=== PATIENT | male | born 1935 | race African-American/Black ===

== ENCOUNTER 2017-09-11 09:48 | Inpatient (IN) ==
[2017-09-11] MEDS ORDERED: ALBUTEROL/IPRATROPIUM 3 ML NEB RESP TX STA (10:11)
[2017-09-11] MEDS ORDERED: ACETAMINOPHEN/CODEINE 120-12 MG/5 ML 12.5 ML UDCUP PO STA (10:11)
[2017-09-11] MEDS ORDERED: ACETAMINOPHEN/CODEINE 120-12 MG/5 ML 12.5 ML UDCUP ONE (10:39)
[2017-09-11 10:45] LABS: Basophils % 0.8 % (0.0-0.8); Eosinophils # 0.2 10*3/uL (0.0-0.87); Eosinophils % 4.3 % (0.00-10.9); Hematocrit 34.1 VOL% (42.0-52.0); Hemoglobin 10.9 GM/DL (14.0-18.0); Immature Granulocytes % 0.4 %; Immature Granulocytes Absolute 0.02 #; Lymphocytes # 1.1 10*3/uL (1.4-4.0); Mean Corpuscular Hemoglobin 29 PG (27-34); Mean Corpuscular Volume 91.9 FL (87-102); Mean Platelet Volume 9.6 FL (9.6-12.0); Monocytes # 0.3 10*3/uL (0.11-0.8); Monocytes % 6.5 % (1.7-12.7); Neutrophils # 3.2 10*3/uL (1.4-7.4); Platelet Count 201 T/CUMM (130-400); Red Blood Count 3.71 MC/CUMM (3.8-5.5); Red Cell Distribution Width 14.9 % (9.3-17.3); White Blood Count 4.9 T/CUMM (4-12)
[2017-09-11 10:59] LABS: PT Patient Result 10.3 SECS; Partial Thromboplastin Time 31.3 SECS (0-40)
[2017-09-11] MEDS ORDERED: cefTRIAXone 2,000 MG in SODIUM CHLORIDE 0.9% 100 ML IV ONE (10:59)
[2017-09-11 11:17] LABS: Apearance,Urine Slightly Hazy (Clear); Bacteria,Urine Few /HPF (Few); Bilirubin,Urine Negative (Negative); Blood, Urine Negative (Negative); Glucose,Urine (UA) Negative (Negative); Ketones,Urine Negative (Negative); Mucus,Urine Occasional /LPF (Occasional); Nitrite,Urine Negative (Negative); Protein,Urine Negative; RBC,Urine 5 /HPF (0-4); Squamous Epithelial Cell,Urine Occasional /HPF (0-10); Urine Color Yellow (Yellow); Urine Specific Gravity 1.015 (1.001-1.035); Urine Urobilinogen < 2.0 EU/DL (0.2-1.0); WBC,Urine 32 /HPF (0-6)
[2017-09-11 11:18] LABS: Alanine Aminotransferase 14 U/L (16-61); Albumin 3.7 G/DL (3.4-5.0); Alkaline Phosphatase 76 U/L (45-117); Aspartate Amino Transferase 20 U/L (0-37); Bilirubin,Total < 0.39 MG/DL (0.2-1.0); Blood Urea Nitrogen 18 MG/DL (7-18); Calcium 8.8 MG/DL (8.5-10.1); Glucose 81 MG/DL (74-106); Osmolality,Calculated 281.3 MOS/KG (273-304); Sodium 141 MMOL/L (136-145); Total Protein 7.2 G/DL (6.4-8.3); Troponin I Only < 0.015 NG/ML (0.00-0.045)
[2017-09-11 11:49] LABS: Barbiturates Screen,Urine Negative (Negative); Benzodiazepines Screen,Urine Negative (Negative); Cannabinoid Screen,Urine Negative (Negative); Opiate Screen,Urine Negative (Negative); Phencyclidine Screen,Urine Negative (Negative)
[2017-09-11] MEDS ORDERED: cefTRIAXone 1,000 MG VIAL ONE (11:58)
[2017-09-11] MEDS ORDERED: ENOXAPARIN 80 MG/0.8 ML SYRINGE SUBCUT STA (12:18)
[2017-09-11] MEDS ORDERED: ENOXAPARIN 80 MG/0.8 ML SYRINGE SUBCUT ONE (12:28)
[2017-09-11] MEDS ORDERED: NITROGLYCERIN SL 0.4 MG TABLET SL PRN (13:00)
[2017-09-11] MEDS ORDERED: LABETALOL 20 MG/4 ML SYRINGE IV PRN (14:28)
[2017-09-11] MEDS ORDERED: ALBUTEROL 2.5 MG/3 ML NEB RESP TX PRN (14:49)
[2017-09-11] MEDS ORDERED: cefTRIAXone 2,000 MG in SYRINGE 1 EACH IV SCH (15:00)
[2017-09-11] MEDS: ALBUTEROL/IPRATROPIUM 3 ML NEB RESP TX SCH (19:56)
[2017-09-11] MEDS: ATORVASTATIN 40 MG TABLET PO SCH (21:57)
[2017-09-11] MEDS: CARVEDILOL 12.5 MG TABLET PO SCH (21:57)
[2017-09-11] MEDS: SOTALOL 80 MG TABLET PO SCH (21:57)
[2017-09-11] MEDS: MAGNESIUM OXIDE 400 MG TABLET PO SCH (21:58)
[2017-09-11] MEDS: PANTOPRAZOLE 40 MG TABLET PO SCH (21:58)
[2017-09-11] MEDS: carBAMazepine 200 MG TABLET PO SCH (21:58)
[2017-09-11] MEDS: FLUTICASONE 50 MCG NASAL SPRAY 16 GM BOTTLE BOTH NARES SCH (21:58)
[2017-09-11] MEDS: SERTRALINE 25 MG TABLET PO SCH (21:58)
[2017-09-11] MEDS: ENOXAPARIN 80 MG/0.8 ML SYRINGE SUBCUT SCH (23:35)
[2017-09-12] MEDS: ALBUTEROL/IPRATROPIUM 3 ML NEB RESP TX SCH ×4 (00:43→20:06)
[2017-09-12 04:25] LABS: Basophils % 0.4 % (0.0-0.8); Eosinophils # 0.1 10*3/uL (0.0-0.87); Eosinophils % 1.8 % (0.00-10.9); Hematocrit 28.7 VOL% (42.0-52.0); Hemoglobin 9.6 GM/DL (14.0-18.0); Immature Granulocytes % 0.3 %; Immature Granulocytes Absolute 0.02 #; Lymphocytes # 1.3 10*3/uL (1.4-4.0); Lymphocytes % 17.3 % (21.2-54.2); Mean Corpuscular HGB Conc 33.4 GM/DL (32-36); Mean Corpuscular Hemoglobin 30 PG (27-34); Mean Corpuscular Volume 88.9 FL (87-102); Mean Platelet Volume 9.8 FL (9.6-12.0); Monocytes # 0.5 10*3/uL (0.11-0.8); Monocytes % 7.2 % (1.7-12.7); Neutrophils # 5.4 10*3/uL (1.4-7.4); Platelet Count 197 T/CUMM (130-400); Red Blood Count 3.23 MC/CUMM (3.8-5.5); Red Cell Distribution Width 14.7 % (9.3-17.3); White Blood Count 7.4 T/CUMM (4-12)
[2017-09-12 04:58] LABS: Albumin 3.4 G/DL (3.4-5.0); Bilirubin,Total 0.6 MG/DL (0.2-1.0); Calcium 8.9 MG/DL (8.5-10.1); Osmolality,Calculated 283.1 MOS/KG (273-304); Potassium 3.8 MMOL/L (3.5-5.1); Total Protein 6.5 G/DL (6.4-8.3)
[2017-09-12] MEDS: SOTALOL 80 MG TABLET PO SCH ×2 (09:05→21:32)
[2017-09-12] MEDS: CARVEDILOL 12.5 MG TABLET PO SCH ×2 (09:06→21:32)
[2017-09-12] MEDS: FLUTICASONE 50 MCG NASAL SPRAY 16 GM BOTTLE BOTH NARES SCH ×2 (09:06→21:33)
[2017-09-12] MEDS: ALLOPURINOL 100 MG TABLET PO SCH (09:06)
[2017-09-12] MEDS: MAGNESIUM OXIDE 400 MG TABLET PO SCH ×2 (09:06→21:32)
[2017-09-12] MEDS: TAMSULOSIN 0.4 MG CAPSULE PO SCH (09:06)
[2017-09-12] MEDS: LEVOFLOXACIN INJ 750 MG in PREMIX 1 EACH IV SCH (10:49)
[2017-09-12] MEDS: ENOXAPARIN 80 MG/0.8 ML SYRINGE SUBCUT SCH ×2 (11:10→23:30)
[2017-09-12] MEDS ORDERED: ACETAMINOPHEN 325 MG TABLET PO PRN (17:34)
[2017-09-12] MEDS: ATORVASTATIN 40 MG TABLET PO SCH (21:32)
[2017-09-12] MEDS: carBAMazepine 200 MG TABLET PO SCH (21:32)
[2017-09-12] MEDS: PANTOPRAZOLE 40 MG TABLET PO SCH (21:33)
[2017-09-12] MEDS: SERTRALINE 25 MG TABLET PO SCH (21:33)
[2017-09-13] MEDS: ALBUTEROL/IPRATROPIUM 3 ML NEB RESP TX SCH ×4 (01:07→18:30)
[2017-09-13 05:23] LABS: Basophils % 0.3 % (0.0-0.8); Eosinophils # 0.2 10*3/uL (0.0-0.87); Eosinophils % 2.8 % (0.00-10.9); Hematocrit 27.5 VOL% (42.0-52.0); Hemoglobin 9.2 GM/DL (14.0-18.0); Immature Granulocytes % 0.2 %; Immature Granulocytes Absolute 0.01 #; Lymphocytes # 1.4 10*3/uL (1.4-4.0); Lymphocytes % 21.8 % (21.2-54.2); Mean Corpuscular HGB Conc 33.5 GM/DL (32-36); Mean Corpuscular Hemoglobin 30 PG (27-34); Mean Corpuscular Volume 89.6 FL (87-102); Mean Platelet Volume 9.2 FL (9.6-12.0); Monocytes # 0.7 10*3/uL (0.11-0.8); Monocytes % 10.4 % (1.7-12.7); Neutrophils # 4.2 10*3/uL (1.4-7.4); Neutrophils % 64.5 % (38.7-73.9); Platelet Count 189 T/CUMM (130-400); Red Blood Count 3.07 MC/CUMM (3.8-5.5); Red Cell Distribution Width 14.8 % (9.3-17.3); White Blood Count 6.5 T/CUMM (4-12)
[2017-09-13 06:08] LABS: Osmolality,Calculated 278.4 MOS/KG (273-304); Potassium 3.7 MMOL/L (3.5-5.1)
[2017-09-13] MEDS: ALLOPURINOL 100 MG TABLET PO SCH (09:06)
[2017-09-13] MEDS: SOTALOL 80 MG TABLET PO SCH ×2 (09:06→22:08)
[2017-09-13] MEDS: MAGNESIUM OXIDE 400 MG TABLET PO SCH ×2 (09:06→22:09)
[2017-09-13] MEDS: CARVEDILOL 12.5 MG TABLET PO SCH ×2 (09:06→22:09)
[2017-09-13] MEDS: TAMSULOSIN 0.4 MG CAPSULE PO SCH (09:07)
[2017-09-13] MEDS: FLUTICASONE 50 MCG NASAL SPRAY 16 GM BOTTLE BOTH NARES SCH ×2 (09:08→22:10)
[2017-09-13] MEDS: LEVOFLOXACIN INJ 750 MG in PREMIX 1 EACH IV SCH (10:21)
[2017-09-13] MEDS: ENOXAPARIN 80 MG/0.8 ML SYRINGE SUBCUT SCH (13:50)
[2017-09-13] MEDS: APIXABAN 5 MG TABLET PO SCH ×2 (13:51→22:09)
[2017-09-13] MEDS ORDERED: POTASSIUM CHLORIDE 20 MEQ TABLET PO PRN (20:58)
[2017-09-13] MEDS ORDERED: MAGNESIUM SULF RIDER 2 GM in PREMIX 1 EACH IV PRN ×2 (21:00→21:02)
[2017-09-13] MEDS ORDERED: MAGNESIUM SULF RIDER 4 GM in PREMIX 1 EACH IV PRN ×2 (21:00→21:02)
[2017-09-13] MEDS: carBAMazepine 200 MG TABLET PO SCH (22:08)
[2017-09-13] MEDS: PANTOPRAZOLE 40 MG TABLET PO SCH (22:09)
[2017-09-13] MEDS: SERTRALINE 25 MG TABLET PO SCH (22:09)
[2017-09-13] MEDS: ATORVASTATIN 40 MG TABLET PO SCH (22:09)
[2017-09-14 05:28] LABS: Basophils % 0.5 % (0.0-0.8); Eosinophils # 0.2 10*3/uL (0.0-0.87); Eosinophils % 3.7 % (0.00-10.9); Hematocrit 25.6 VOL% (42.0-52.0); Hemoglobin 8.6 GM/DL (14.0-18.0); Immature Granulocytes % 0.3 %; Immature Granulocytes Absolute 0.02 #; Lymphocytes # 1.3 10*3/uL (1.4-4.0); Lymphocytes % 21.9 % (21.2-54.2); Mean Corpuscular HGB Conc 33.6 GM/DL (32-36); Mean Corpuscular Hemoglobin 30 PG (27-34); Mean Corpuscular Volume 89.5 FL (87-102); Mean Platelet Volume 9.5 FL (9.6-12.0); Monocytes # 0.6 10*3/uL (0.11-0.8); Neutrophils # 3.6 10*3/uL (1.4-7.4); Neutrophils % 63.6 % (38.7-73.9); Platelet Count 185 T/CUMM (130-400); Red Blood Count 2.86 MC/CUMM (3.8-5.5); Red Cell Distribution Width 14.7 % (9.3-17.3); White Blood Count 5.7 T/CUMM (4-12)
[2017-09-14 05:59] LABS: Calcium 8.4 MG/DL (8.5-10.1); Osmolality,Calculated 280.3 MOS/KG (273-304); Potassium 3.7 MMOL/L (3.5-5.1)
[2017-09-14] MEDS: ALBUTEROL/IPRATROPIUM 3 ML NEB RESP TX SCH ×4 (06:55→19:09)
[2017-09-14] MEDS: SOTALOL 80 MG TABLET PO SCH ×2 (09:19→21:44)
[2017-09-14] MEDS: CARVEDILOL 12.5 MG TABLET PO SCH ×2 (09:19→21:45)
[2017-09-14] MEDS: MAGNESIUM OXIDE 400 MG TABLET PO SCH ×2 (09:19→21:45)
[2017-09-14] MEDS: APIXABAN 5 MG TABLET PO SCH ×2 (09:19→21:44)
[2017-09-14] MEDS: TAMSULOSIN 0.4 MG CAPSULE PO SCH (09:20)
[2017-09-14] MEDS: ALLOPURINOL 100 MG TABLET PO SCH (09:20)
[2017-09-14] MEDS: FLUTICASONE 50 MCG NASAL SPRAY 16 GM BOTTLE BOTH NARES SCH ×2 (09:22→21:45)
[2017-09-14] MEDS: NITROFURANTOIN MACRO/MONO 100 MG CAPSULE PO SCH ×2 (09:30→21:45)
[2017-09-14] MEDS: HYDROcodone/CHLORPHENIRAMINE ER 5 ML UDCUP PO SCH ×2 (09:31→21:44)
[2017-09-14] MEDS: SERTRALINE 25 MG TABLET PO SCH (21:44)
[2017-09-14] MEDS: carBAMazepine 200 MG TABLET PO SCH (21:44)
[2017-09-14] MEDS: ATORVASTATIN 40 MG TABLET PO SCH (21:45)
[2017-09-14] MEDS: PANTOPRAZOLE 40 MG TABLET PO SCH (21:45)
[2017-09-15] MEDS: ALBUTEROL/IPRATROPIUM 3 ML NEB RESP TX SCH ×4 (01:16→19:38)
[2017-09-15 05:04] LABS: Basophils % 0.5 % (0.0-0.8); Eosinophils # 0.3 10*3/uL (0.0-0.87); Eosinophils % 5.3 % (0.00-10.9); Hematocrit 25.7 VOL% (42.0-52.0); Hemoglobin 8.1 GM/DL (14.0-18.0); Immature Granulocytes % 0.2 %; Immature Granulocytes Absolute 0.01 #; Lymphocytes # 1.3 10*3/uL (1.4-4.0); Lymphocytes % 21.9 % (21.2-54.2); Mean Corpuscular HGB Conc 31.5 GM/DL (32-36); Mean Corpuscular Hemoglobin 30 PG (27-34); Mean Corpuscular Volume 93.5 FL (87-102); Mean Platelet Volume 9.6 FL (9.6-12.0); Monocytes # 0.7 10*3/uL (0.11-0.8); Monocytes % 11.2 % (1.7-12.7); Neutrophils # 3.5 10*3/uL (1.4-7.4); Neutrophils % 60.9 % (38.7-73.9); Platelet Count 189 T/CUMM (130-400); Red Blood Count 2.75 MC/CUMM (3.8-5.5); Red Cell Distribution Width 14.8 % (9.3-17.3); White Blood Count 5.8 T/CUMM (4-12)
[2017-09-15] MEDS ORDERED: PROMETHAZINE 25 MG/1 ML VIAL IM ONE (07:00)
[2017-09-15] MEDS ORDERED: MIDAZOLAM 2 MG/2 ML VIAL ONE (07:06)
[2017-09-15] MEDS ORDERED: LIDOCAINE 2% 20 ML VIAL RESP TX ONE (07:30)
[2017-09-15] MEDS ORDERED: MIDAZOLAM 2 MG/2 ML VIAL IV ONE ×2 (07:30→09:52)
[2017-09-15] MEDS ORDERED: LIDOCAINE 1% 20 ML VIAL MISC INJ ONE (07:30)
[2017-09-15] MEDS ORDERED: EPINEPHrine 1 MG/ML VIAL ET ONE (08:25)
[2017-09-15] MEDS ORDERED: EPINEPHrine 1 MG/ML VIAL ONE (09:34)
[2017-09-15] MEDS ORDERED: fentaNYL 100 MCG/2 ML VIAL IV ONE (09:52)
[2017-09-15] MEDS ORDERED: DIAZEPAM 5 MG TABLET PO ONE (09:52)
[2017-09-15] MEDS: HYDROcodone/CHLORPHENIRAMINE ER 5 ML UDCUP PO SCH ×2 (14:50→21:21)
[2017-09-15] MEDS: SOTALOL 80 MG TABLET PO SCH ×2 (14:51→21:19)
[2017-09-15] MEDS: TAMSULOSIN 0.4 MG CAPSULE PO SCH (14:52)
[2017-09-15] MEDS: MAGNESIUM OXIDE 400 MG TABLET PO SCH ×2 (14:52→21:21)
[2017-09-15] MEDS: ALLOPURINOL 100 MG TABLET PO SCH (14:53)
[2017-09-15] MEDS: CARVEDILOL 12.5 MG TABLET PO SCH ×2 (14:53→21:21)
[2017-09-15] MEDS: NITROFURANTOIN MACRO/MONO 100 MG CAPSULE PO SCH ×2 (14:53→21:20)
[2017-09-15] MEDS: FLUTICASONE 50 MCG NASAL SPRAY 16 GM BOTTLE BOTH NARES SCH ×2 (14:54→21:24)
[2017-09-15] MEDS: carBAMazepine 200 MG TABLET PO SCH (21:19)
[2017-09-15] MEDS: SERTRALINE 25 MG TABLET PO SCH (21:20)
[2017-09-15] MEDS: ATORVASTATIN 40 MG TABLET PO SCH (21:21)
[2017-09-15] MEDS: PANTOPRAZOLE 40 MG TABLET PO SCH (21:21)
[2017-09-16] MEDS: ALBUTEROL/IPRATROPIUM 3 ML NEB RESP TX SCH ×4 (01:55→20:21)
[2017-09-16 05:14] LABS: Basophils % 0.3 % (0.0-0.8); Eosinophils # 0.2 10*3/uL (0.0-0.87); Eosinophils % 3.8 % (0.00-10.9); Hemoglobin 8.4 GM/DL (14.0-18.0); Immature Granulocytes % 0.3 %; Immature Granulocytes Absolute 0.02 #; Lymphocytes % 16.1 % (21.2-54.2); Mean Corpuscular HGB Conc 33.6 GM/DL (32-36); Mean Corpuscular Hemoglobin 30 PG (27-34); Mean Platelet Volume 9.5 FL (9.6-12.0); Monocytes # 0.5 10*3/uL (0.11-0.8); Monocytes % 8.4 % (1.7-12.7); Neutrophils # 4.5 10*3/uL (1.4-7.4); Neutrophils % 71.1 % (38.7-73.9); Platelet Count 217 T/CUMM (130-400); Red Blood Count 2.81 MC/CUMM (3.8-5.5); Red Cell Distribution Width 14.6 % (9.3-17.3); White Blood Count 6.3 T/CUMM (4-12)
[2017-09-16 05:56] LABS: Calcium 8.2 MG/DL (8.5-10.1); Osmolality,Calculated 284.1 MOS/KG (273-304); Potassium 4.1 MMOL/L (3.5-5.1)
[2017-09-16] MEDS: ALLOPURINOL 100 MG TABLET PO SCH (08:08)
[2017-09-16] MEDS: CARVEDILOL 12.5 MG TABLET PO SCH ×2 (08:08→21:18)
[2017-09-16] MEDS: MAGNESIUM OXIDE 400 MG TABLET PO SCH ×2 (08:08→21:15)
[2017-09-16] MEDS: NITROFURANTOIN MACRO/MONO 100 MG CAPSULE PO SCH ×2 (08:08→21:24)
[2017-09-16] MEDS: TAMSULOSIN 0.4 MG CAPSULE PO SCH (08:08)
[2017-09-16] MEDS: FLUTICASONE 50 MCG NASAL SPRAY 16 GM BOTTLE BOTH NARES SCH ×2 (08:09→21:19)
[2017-09-16] MEDS: SOTALOL 80 MG TABLET PO SCH ×2 (08:09→21:15)
[2017-09-16] MEDS: HYDROcodone/CHLORPHENIRAMINE ER 5 ML UDCUP PO SCH ×2 (08:09→21:24)
[2017-09-16] MEDS: ATORVASTATIN 40 MG TABLET PO SCH (21:15)
[2017-09-16] MEDS: carBAMazepine 200 MG TABLET PO SCH (21:16)
[2017-09-16] MEDS: PANTOPRAZOLE 40 MG TABLET PO SCH (21:17)
[2017-09-16] MEDS: SERTRALINE 25 MG TABLET PO SCH (21:17)
[2017-09-17] MEDS: ALBUTEROL/IPRATROPIUM 3 ML NEB RESP TX SCH ×4 (00:53→18:59)
[2017-09-17 04:50] LABS: Basophils % 0.5 % (0.0-0.8); Eosinophils # 0.3 10*3/uL (0.0-0.87); Eosinophils % 5.4 % (0.00-10.9); Hematocrit 24.9 VOL% (42.0-52.0); Hemoglobin 8.1 GM/DL (14.0-18.0); Immature Granulocytes % 0.3 %; Immature Granulocytes Absolute 0.02 #; Lymphocytes % 17.3 % (21.2-54.2); Mean Corpuscular HGB Conc 32.5 GM/DL (32-36); Mean Corpuscular Hemoglobin 30 PG (27-34); Mean Corpuscular Volume 91.9 FL (87-102); Mean Platelet Volume 9.4 FL (9.6-12.0); Monocytes # 0.5 10*3/uL (0.11-0.8); Monocytes % 7.6 % (1.7-12.7); Neutrophils # 4.1 10*3/uL (1.4-7.4); Neutrophils % 68.9 % (38.7-73.9); Platelet Count 215 T/CUMM (130-400); Red Blood Count 2.71 MC/CUMM (3.8-5.5); Red Cell Distribution Width 14.6 % (9.3-17.3); White Blood Count 5.9 T/CUMM (4-12)
[2017-09-17 05:19] LABS: Calcium 8.3 MG/DL (8.5-10.1); Osmolality,Calculated 282.3 MOS/KG (273-304); Potassium 3.9 MMOL/L (3.5-5.1)
[2017-09-17] MEDS: CARVEDILOL 12.5 MG TABLET PO SCH ×2 (08:24→21:18)
[2017-09-17] MEDS: NITROFURANTOIN MACRO/MONO 100 MG CAPSULE PO SCH ×2 (08:24→21:18)
[2017-09-17] MEDS: TAMSULOSIN 0.4 MG CAPSULE PO SCH (08:24)
[2017-09-17] MEDS: MAGNESIUM OXIDE 400 MG TABLET PO SCH ×2 (08:24→21:19)
[2017-09-17] MEDS: FLUTICASONE 50 MCG NASAL SPRAY 16 GM BOTTLE BOTH NARES SCH ×2 (08:25→21:17)
[2017-09-17] MEDS: SOTALOL 80 MG TABLET PO SCH ×2 (08:25→21:17)
[2017-09-17] MEDS: ALLOPURINOL 100 MG TABLET PO SCH (08:25)
[2017-09-17] MEDS: HYDROcodone/CHLORPHENIRAMINE ER 5 ML UDCUP PO SCH ×2 (08:25→21:19)
[2017-09-17] MEDS: carBAMazepine 200 MG TABLET PO SCH (21:17)
[2017-09-17] MEDS: SERTRALINE 25 MG TABLET PO SCH (21:18)
[2017-09-17] MEDS: ATORVASTATIN 40 MG TABLET PO SCH (21:18)
[2017-09-17] MEDS: PANTOPRAZOLE 40 MG TABLET PO SCH (21:18)
[2017-09-18] MEDS: ALBUTEROL/IPRATROPIUM 3 ML NEB RESP TX SCH ×4 (00:05→20:33)
[2017-09-18 05:58] LABS: Basophils % 0.5 % (0.0-0.8); Eosinophils # 0.3 10*3/uL (0.0-0.87); Eosinophils % 4.5 % (0.00-10.9); Hematocrit 25.5 VOL% (42.0-52.0); Hemoglobin 8.2 GM/DL (14.0-18.0); Immature Granulocytes % 0.5 %; Immature Granulocytes Absolute 0.03 #; Lymphocytes % 14.4 % (21.2-54.2); Mean Corpuscular HGB Conc 32.2 GM/DL (32-36); Mean Corpuscular Hemoglobin 30 PG (27-34); Mean Corpuscular Volume 91.7 FL (87-102); Mean Platelet Volume 9.3 FL (9.6-12.0); Monocytes # 0.4 10*3/uL (0.11-0.8); Monocytes % 6.3 % (1.7-12.7); Neutrophils # 4.9 10*3/uL (1.4-7.4); Neutrophils % 73.8 % (38.7-73.9); Platelet Count 225 T/CUMM (130-400); Red Blood Count 2.78 MC/CUMM (3.8-5.5); Red Cell Distribution Width 14.4 % (9.3-17.3); White Blood Count 6.7 T/CUMM (4-12)
[2017-09-18 06:23] LABS: Calcium 8.6 MG/DL (8.5-10.1); Osmolality,Calculated 282.3 MOS/KG (273-304); Potassium 3.9 MMOL/L (3.5-5.1)
[2017-09-18] MEDS: MAGNESIUM OXIDE 400 MG TABLET PO SCH ×2 (08:18→22:33)
[2017-09-18] MEDS: TAMSULOSIN 0.4 MG CAPSULE PO SCH (08:18)
[2017-09-18] MEDS: HYDROcodone/CHLORPHENIRAMINE ER 5 ML UDCUP PO SCH ×2 (08:18→23:54)
[2017-09-18] MEDS: SOTALOL 80 MG TABLET PO SCH ×2 (08:18→22:33)
[2017-09-18] MEDS: ALLOPURINOL 100 MG TABLET PO SCH (08:18)
[2017-09-18] MEDS: CARVEDILOL 12.5 MG TABLET PO SCH ×2 (08:18→22:31)
[2017-09-18] MEDS: NITROFURANTOIN MACRO/MONO 100 MG CAPSULE PO SCH ×2 (08:18→22:32)
[2017-09-18] MEDS: FLUTICASONE 50 MCG NASAL SPRAY 16 GM BOTTLE BOTH NARES SCH ×2 (08:19→22:36)
[2017-09-18] MEDS: POLYETHYLENE GLYCOL POWDER 17 GM PACK PO PRN (17:00)
[2017-09-18] MEDS: carBAMazepine 200 MG TABLET PO SCH (22:31)
[2017-09-18] MEDS: ATORVASTATIN 40 MG TABLET PO SCH (22:31)
[2017-09-18] MEDS: SERTRALINE 25 MG TABLET PO SCH (22:32)
[2017-09-18] MEDS: PANTOPRAZOLE 40 MG TABLET PO SCH (22:32)
[2017-09-19] MEDS: ALBUTEROL/IPRATROPIUM 3 ML NEB RESP TX SCH ×4 (02:45→19:12)
[2017-09-19 05:23] LABS: Basophils # 0.1 10*3/uL (0.0-0.2); Basophils % 0.8 % (0.0-0.8); Eosinophils # 0.2 10*3/uL (0.0-0.87); Eosinophils % 3.6 % (0.00-10.9); Hematocrit 25.3 VOL% (42.0-52.0); Hemoglobin 8.4 GM/DL (14.0-18.0); Immature Granulocytes % 0.3 %; Immature Granulocytes Absolute 0.02 #; Lymphocytes # 0.8 10*3/uL (1.4-4.0); Lymphocytes % 11.3 % (21.2-54.2); Mean Corpuscular HGB Conc 33.2 GM/DL (32-36); Mean Corpuscular Hemoglobin 30 PG (27-34); Mean Corpuscular Volume 89.1 FL (87-102); Monocytes # 0.4 10*3/uL (0.11-0.8); Neutrophils # 5.2 10*3/uL (1.4-7.4); Platelet Count 262 T/CUMM (130-400); Red Blood Count 2.84 MC/CUMM (3.8-5.5); Red Cell Distribution Width 14.5 % (9.3-17.3); White Blood Count 6.6 T/CUMM (4-12)
[2017-09-19 05:58] LABS: Calcium 8.7 MG/DL (8.5-10.1); Osmolality,Calculated 280.4 MOS/KG (273-304); Potassium 4.2 MMOL/L (3.5-5.1)
[2017-09-19] MEDS: TAMSULOSIN 0.4 MG CAPSULE PO SCH (16:17)
[2017-09-19] MEDS: CARVEDILOL 12.5 MG TABLET PO SCH ×2 (16:17→20:30)
[2017-09-19] MEDS: SOTALOL 80 MG TABLET PO SCH ×2 (16:17→20:29)
[2017-09-19] MEDS: HYDROcodone/CHLORPHENIRAMINE ER 5 ML UDCUP PO SCH ×2 (16:17→20:30)
[2017-09-19] MEDS: FLUTICASONE 50 MCG NASAL SPRAY 16 GM BOTTLE BOTH NARES SCH ×2 (16:17→20:36)
[2017-09-19] MEDS: ALLOPURINOL 100 MG TABLET PO SCH (16:18)
[2017-09-19] MEDS: MAGNESIUM OXIDE 400 MG TABLET PO SCH ×2 (16:18→20:30)
[2017-09-19] MEDS: NITROFURANTOIN MACRO/MONO 100 MG CAPSULE PO SCH ×2 (16:18→20:35)
[2017-09-19] MEDS: SERTRALINE 25 MG TABLET PO SCH (20:30)
[2017-09-19] MEDS: carBAMazepine 200 MG TABLET PO SCH (20:30)
[2017-09-19] MEDS: PANTOPRAZOLE 40 MG TABLET PO SCH (20:30)
[2017-09-19] MEDS: ATORVASTATIN 40 MG TABLET PO SCH (20:30)
[2017-09-20] MEDS: ALBUTEROL/IPRATROPIUM 3 ML NEB RESP TX SCH ×4 (00:22→19:15)
[2017-09-20 05:23] LABS: Basophils % 0.5 % (0.0-0.8); Eosinophils # 0.2 10*3/uL (0.0-0.87); Eosinophils % 3.7 % (0.00-10.9); Hematocrit 26.7 VOL% (42.0-52.0); Hemoglobin 8.8 GM/DL (14.0-18.0); Immature Granulocytes % 0.3 %; Immature Granulocytes Absolute 0.02 #; Lymphocytes # 0.9 10*3/uL (1.4-4.0); Lymphocytes % 13.1 % (21.2-54.2); Mean Corpuscular Hemoglobin 29 PG (27-34); Mean Corpuscular Volume 88.7 FL (87-102); Mean Platelet Volume 8.8 FL (9.6-12.0); Monocytes # 0.5 10*3/uL (0.11-0.8); Monocytes % 8.3 % (1.7-12.7); Neutrophils # 4.8 10*3/uL (1.4-7.4); Neutrophils % 74.1 % (38.7-73.9); Platelet Count 294 T/CUMM (130-400); Red Blood Count 3.01 MC/CUMM (3.8-5.5); Red Cell Distribution Width 14.5 % (9.3-17.3); White Blood Count 6.5 T/CUMM (4-12)
[2017-09-20 05:55] LABS: Albumin 2.7 G/DL (3.4-5.0); Bilirubin,Total 0.5 MG/DL (0.2-1.0); Calcium 8.3 MG/DL (8.5-10.1); Potassium 3.9 MMOL/L (3.5-5.1); Total Protein 6.1 G/DL (6.4-8.3)
[2017-09-20 08:03] LABS: PT Patient Result 10.3 SECS; Partial Thromboplastin Time 35.2 SECS (0-40)
[2017-09-20] MEDS: TAMSULOSIN 0.4 MG CAPSULE PO SCH (09:23)
[2017-09-20] MEDS: SOTALOL 80 MG TABLET PO SCH ×2 (09:23→21:54)
[2017-09-20] MEDS: CARVEDILOL 12.5 MG TABLET PO SCH ×2 (09:23→21:53)
[2017-09-20] MEDS: ALLOPURINOL 100 MG TABLET PO SCH (09:23)
[2017-09-20] MEDS: HYDROcodone/CHLORPHENIRAMINE ER 5 ML UDCUP PO SCH ×2 (09:24→21:57)
[2017-09-20] MEDS: FLUTICASONE 50 MCG NASAL SPRAY 16 GM BOTTLE BOTH NARES SCH ×2 (09:24→21:58)
[2017-09-20] MEDS: APIXABAN 5 MG TABLET PO SCH ×2 (09:24→21:56)
[2017-09-20] MEDS: POLYETHYLENE GLYCOL POWDER 17 GM PACK PO PRN (09:24)
[2017-09-20] MEDS: MAGNESIUM OXIDE 400 MG TABLET PO SCH ×2 (09:24→21:53)
[2017-09-20] MEDS: carBAMazepine 200 MG TABLET PO SCH (21:53)
[2017-09-20] MEDS: ATORVASTATIN 40 MG TABLET PO SCH (21:55)
[2017-09-20] MEDS: SERTRALINE 25 MG TABLET PO SCH (21:55)
[2017-09-20] MEDS: PANTOPRAZOLE 40 MG TABLET PO SCH (21:56)
[2017-09-21] MEDS: ALBUTEROL/IPRATROPIUM 3 ML NEB RESP TX SCH ×4 (00:28→19:30)
[2017-09-21 05:51] LABS: Basophils % 0.5 % (0.0-0.8); Eosinophils # 0.3 10*3/uL (0.0-0.87); Eosinophils % 5.2 % (0.00-10.9); Hematocrit 26.2 VOL% (42.0-52.0); Hemoglobin 8.7 GM/DL (14.0-18.0); Immature Granulocytes % 0.3 %; Immature Granulocytes Absolute 0.02 #; Lymphocytes # 0.9 10*3/uL (1.4-4.0); Lymphocytes % 14.9 % (21.2-54.2); Mean Corpuscular HGB Conc 33.2 GM/DL (32-36); Mean Corpuscular Hemoglobin 30 PG (27-34); Mean Corpuscular Volume 88.8 FL (87-102); Monocytes # 0.4 10*3/uL (0.11-0.8); Monocytes % 7.4 % (1.7-12.7); Neutrophils # 4.3 10*3/uL (1.4-7.4); Neutrophils % 71.7 % (38.7-73.9); Platelet Count 325 T/CUMM (130-400); Red Blood Count 2.95 MC/CUMM (3.8-5.5); Red Cell Distribution Width 14.4 % (9.3-17.3)
[2017-09-21 06:23] LABS: Albumin 2.8 G/DL (3.4-5.0); Bilirubin,Total 0.7 MG/DL (0.2-1.0); Calcium 8.8 MG/DL (8.5-10.1); Osmolality,Calculated 284.3 MOS/KG (273-304); Potassium 4.2 MMOL/L (3.5-5.1); Total Protein 6.3 G/DL (6.4-8.3)
[2017-09-21] MEDS: SOTALOL 80 MG TABLET PO SCH ×2 (09:28→21:54)
[2017-09-21] MEDS: CARVEDILOL 12.5 MG TABLET PO SCH ×2 (09:29→21:54)
[2017-09-21] MEDS: MAGNESIUM OXIDE 400 MG TABLET PO SCH ×2 (09:29→21:55)
[2017-09-21] MEDS: APIXABAN 2.5 MG TABLET PO SCH ×2 (09:29→21:54)
[2017-09-21] MEDS: ALLOPURINOL 100 MG TABLET PO SCH (09:29)
[2017-09-21] MEDS: TAMSULOSIN 0.4 MG CAPSULE PO SCH (09:30)
[2017-09-21] MEDS: FLUTICASONE 50 MCG NASAL SPRAY 16 GM BOTTLE BOTH NARES SCH ×2 (09:30→21:56)
[2017-09-21] MEDS: HYDROcodone/CHLORPHENIRAMINE ER 5 ML UDCUP PO SCH (09:30)
[2017-09-21] MEDS: carBAMazepine 200 MG TABLET PO SCH (21:54)
[2017-09-21] MEDS: PANTOPRAZOLE 40 MG TABLET PO SCH (21:54)
[2017-09-21] MEDS: SERTRALINE 25 MG TABLET PO SCH (21:55)
[2017-09-21] MEDS: ATORVASTATIN 40 MG TABLET PO SCH (21:55)
[2017-09-22] MEDS: ALBUTEROL/IPRATROPIUM 3 ML NEB RESP TX SCH ×2 (00:17→07:58)
[2017-09-22] MEDS: CARVEDILOL 12.5 MG TABLET PO SCH (08:54)
[2017-09-22] MEDS: APIXABAN 2.5 MG TABLET PO SCH (08:54)
[2017-09-22] MEDS: MAGNESIUM OXIDE 400 MG TABLET PO SCH (08:54)
[2017-09-22] MEDS: SOTALOL 80 MG TABLET PO SCH (08:54)
[2017-09-22] MEDS: TAMSULOSIN 0.4 MG CAPSULE PO SCH (08:54)
[2017-09-22] MEDS: ALLOPURINOL 100 MG TABLET PO SCH (08:54)
[2017-09-22] MEDS: FLUTICASONE 50 MCG NASAL SPRAY 16 GM BOTTLE BOTH NARES SCH (09:06)
[2017-09-22 12:10] VITALS: BP 102/56
== END 2017-09-22 15:38 | disposition home health service (06) | DRG 167 ==
LOC: N.ED 09:48 → N.EDINP 12:52 → SUATTDRO 12:52 → N.TELES 13:26
PROVIDERS: ADMIT Hospitalist; ATTEND Internal Medicine Geriatric Medicine

== ENCOUNTER 2017-09-30 23:13 | Observation (INO) ==
[2017-09-30] MEDS ORDERED: ADENOSINE 6 MG/2 ML VIAL ONE ×2 (23:53)
[2017-10-01] MEDS ORDERED: AMIODARONE 200 MG TABLET PO ONE ×2 (00:12→12:11)
[2017-10-01 01:06] LABS: Basophils # 0.1 10*3/uL (0.0-0.2); Basophils % 1.2 % (0.0-0.8); Eosinophils # 0.4 10*3/uL (0.0-0.87); Eosinophils % 6.7 % (0.00-10.9); Hematocrit 27.5 VOL% (42.0-52.0); Immature Granulocytes % 0.7 %; Immature Granulocytes Absolute 0.04 #; Lymphocytes # 1.9 10*3/uL (1.4-4.0); Lymphocytes % 31.1 % (21.2-54.2); Mean Corpuscular HGB Conc 32.7 GM/DL (32-36); Mean Corpuscular Hemoglobin 29 PG (27-34); Mean Corpuscular Volume 89.3 FL (87-102); Mean Platelet Volume 8.9 FL (9.6-12.0); Monocytes # 0.5 10*3/uL (0.11-0.8); Monocytes % 7.9 % (1.7-12.7); Neutrophils # 3.2 10*3/uL (1.4-7.4); Neutrophils % 52.4 % (38.7-73.9); Platelet Count 407 T/CUMM (130-400); Red Blood Count 3.08 MC/CUMM (3.8-5.5); Red Cell Distribution Width 15.1 % (9.3-17.3); White Blood Count 6.1 T/CUMM (4-12)
[2017-10-01 01:26] LABS: Alanine Aminotransferase 31 U/L (16-61); Alkaline Phosphatase 102 U/L (45-117); Aspartate Amino Transferase 29 U/L (0-37); Bilirubin,Total < 0.39 MG/DL (0.2-1.0); Blood Urea Nitrogen 22 MG/DL (7-18); Calcium 8.4 MG/DL (8.5-10.1); Glucose 107 MG/DL (74-106); Osmolality,Calculated 285.1 MOS/KG (273-304); Potassium 3.9 MMOL/L (3.5-5.1); Sodium 142 MMOL/L (136-145); Troponin I Only < 0.015 NG/ML (0.00-0.045)
[2017-10-01] MEDS ORDERED: MAGNESIUM SULF RIDER 4 GM in PREMIX 1 EACH IV PRN (02:30)
[2017-10-01] MEDS ORDERED: ONDANSETRON 4 MG/2 ML VIAL IV PRN (02:30)
[2017-10-01] MEDS ORDERED: MAGNESIUM SULF RIDER 2 GM in PREMIX 1 EACH IV PRN (02:30)
[2017-10-01 06:36] LABS: Troponin I Only < 0.015 NG/ML (0.00-0.045)
[2017-10-01 06:37] LABS: Troponin I Only < 0.015 NG/ML (0.00-0.045)
[2017-10-01] MEDS: AMIODARONE 200 MG TABLET PO SCH ×2 (08:45→20:45)
[2017-10-01] MEDS ORDERED: PANTOPRAZOLE 40 MG TABLET PO SCH ×2 (09:00→21:00)
[2017-10-01 09:54] LABS: Troponin I Only < 0.015 NG/ML (0.00-0.045)
[2017-10-01] MEDS ORDERED: NITROGLYCERIN SL 0.4 MG TABLET SL PRN (10:07)
[2017-10-01] MEDS: APIXABAN 5 MG TABLET PO SCH ×2 (12:43→20:45)
[2017-10-01] MEDS: CARVEDILOL 12.5 MG TABLET PO SCH ×2 (12:44→18:32)
[2017-10-01] MEDS: MAGNESIUM OXIDE 400 MG TABLET PO SCH (20:45)
[2017-10-01] MEDS: FLUTICASONE 50 MCG NASAL SPRAY 16 GM BOTTLE BOTH NARES SCH (20:49)
[2017-10-01] MEDS ORDERED: ATORVASTATIN 40 MG TABLET PO SCH (21:00)
[2017-10-01] MEDS ORDERED: SERTRALINE 25 MG TABLET PO SCH (21:00)
[2017-10-01] MEDS ORDERED: APIXABAN 2.5 MG TABLET PO SCH (21:00)
[2017-10-01] MEDS ORDERED: carBAMazepine 200 MG TABLET PO SCH (21:00)
[2017-10-02] MEDS: CARVEDILOL 12.5 MG TABLET PO SCH ×3 (00:34→14:21)
[2017-10-02] MEDS ORDERED: TAMSULOSIN 0.4 MG CAPSULE PO SCH (09:00)
[2017-10-02] MEDS ORDERED: ALLOPURINOL 100 MG TABLET PO SCH (09:00)
[2017-10-02] MEDS ORDERED: CETIRIZINE 10 MG TABLET PO SCH (09:00)
[2017-10-02] MEDS ORDERED: FUROSEMIDE 20 MG TABLET PO SCH (09:00)
[2017-10-02] MEDS: AMIODARONE 200 MG TABLET PO SCH (09:14)
[2017-10-02] MEDS: MAGNESIUM OXIDE 400 MG TABLET PO SCH (09:14)
[2017-10-02] MEDS: FLUTICASONE 50 MCG NASAL SPRAY 16 GM BOTTLE BOTH NARES SCH (09:15)
[2017-10-02] MEDS: APIXABAN 5 MG TABLET PO SCH (09:15)
[2017-10-02 12:35] VITALS: BP 136/69
== END 2017-10-02 15:02 | disposition home or self-care (01) ==
LOC: N.EDINP 23:13 → N.ED 23:13 → N.TELES 10-01 02:14
PROVIDERS: ADMIT Internal Medicine Cardiovascular Disease; ATTEND Internal Medicine Cardiovascular Disease

== ENCOUNTER 2018-03-28 22:32 | Inpatient (IN) ==
[2018-03-28] MEDS ORDERED: SODIUM CHLORIDE 0.9% 500 ML IV STA (23:14)
[2018-03-28] MEDS ORDERED: ALBUTEROL/IPRATROPIUM 3 ML NEB RESP TX STA (23:14)
[2018-03-29 00:05] LABS: Basophils % 0.2 % (0.0-0.8); Eosinophils # 0.1 10*3/uL (0.0-0.87); Eosinophils % 1.5 % (0.00-10.9); Hematocrit 30.1 VOL% (42.0-52.0); Immature Granulocytes % 0.2 %; Immature Granulocytes Absolute 0.01 #; Lymphocytes # 0.4 10*3/uL (1.4-4.0); Lymphocytes % 7.4 % (21.2-54.2); Mean Corpuscular HGB Conc 26.6 GM/DL (32-36); Mean Corpuscular Hemoglobin 20 PG (27-34); Mean Corpuscular Volume 75.6 FL (87-102); Mean Platelet Volume 10.3 FL (9.6-12.0); Monocytes # 0.1 10*3/uL (0.11-0.8); Monocytes % 1.5 % (1.7-12.7); Neutrophils # 4.2 10*3/uL (1.4-7.4); Neutrophils % 89.2 % (38.7-73.9); Platelet Count 180 T/CUMM (130-400); Red Blood Count 3.98 MC/CUMM (3.8-5.5); Red Cell Distribution Width 17.1 % (9.3-17.3); White Blood Count 4.7 T/CUMM (4-12)
[2018-03-29 00:06] LABS: INR 1.1; PT Patient Result 11.7 SECS
[2018-03-29 00:17] LABS: Apearance,Urine CLEAR (Clear); Bacteria,Urine Moderate /HPF (Few); Bilirubin,Urine Negative (Negative); Blood, Urine Small mg/dL (Negative); Glucose,Urine (UA) Negative (Negative); Ketones,Urine Negative (Negative); Mucus,Urine Occasional /LPF (Occasional); Nitrite,Urine Positive (Negative); Protein,Urine Negative; RBC,Urine 2 /HPF (0-4); Squamous Epithelial Cell,Urine Occasional /HPF (0-10); Urine Color Yellow (Yellow); Urine Specific Gravity 1.016 (1.001-1.035); Urine Urobilinogen < 2.0 EU/DL (0.2-1.0); WBC,Urine 15 /HPF (0-6)
[2018-03-29 00:18] LABS: Alanine Aminotransferase 11 U/L (16-61); Albumin 3.4 G/DL (3.4-5.0); Alkaline Phosphatase 71 U/L (45-117); Amylase 93 U/L (25-115); Aspartate Amino Transferase 17 U/L (0-37); Bilirubin,Total < 0.39 MG/DL (0.2-1.0); Blood Urea Nitrogen 23 MG/DL (7-18); Calcium 8.3 MG/DL (8.5-10.1); Glucose 95 MG/DL (74-106); Osmolality,Calculated 291.7 MOS/KG (273-304); Potassium 3.5 MMOL/L (3.5-5.1); Sodium 145 MMOL/L (136-145); Total Protein 7.2 G/DL (6.4-8.3)
[2018-03-29 00:20] LABS: Lactic Acid 2.3 MMOL/L (0.4-2.0)
[2018-03-29] MEDS ORDERED: LEVOFLOXACIN INJ 500 MG in PREMIX 1 EACH IV SCH (01:00)
[2018-03-29 01:23] LABS: INR 1.1; PT Patient Result 11.6 SECS; Partial Thromboplastin Time 27.1 SECS (0-40)
[2018-03-29] MEDS ORDERED: PIPERACILLIN/TAZOBACTAM 3,375 MG in SODIUM CHLORIDE 0.9% 100 ML IV SCH (02:00)
[2018-03-29] MEDS ORDERED: BISACODYL 5 MG TABLET PO PRN (02:08)
[2018-03-29] MEDS ORDERED: ONDANSETRON 4 MG/2 ML VIAL IV PRN (02:08)
[2018-03-29] MEDS ORDERED: NITROGLYCERIN SL 0.4 MG TABLET SL PRN (02:26)
[2018-03-29] MEDS ORDERED: SODIUM CHLORIDE 0.9% 1,000 ML IV SCH (02:30)
[2018-03-29 04:44] LABS: Basophils % 0.1 % (0.0-0.8); Eosinophils # 0.1 10*3/uL (0.0-0.87); Eosinophils % 0.7 % (0.00-10.9); Immature Granulocytes % 0.5 %; Immature Granulocytes Absolute 0.05 #; Lymphocytes # 0.5 10*3/uL (1.4-4.0); Lymphocytes % 5.5 % (21.2-54.2); Mean Corpuscular HGB Conc 27.2 GM/DL (32-36); Mean Corpuscular Hemoglobin 20 PG (27-34); Mean Corpuscular Volume 74.7 FL (87-102); Monocytes # 0.5 10*3/uL (0.11-0.8); Monocytes % 5.6 % (1.7-12.7); Neutrophils % 87.6 % (38.7-73.9); Platelet Count 208 T/CUMM (130-400); Red Blood Count 2.41 MC/CUMM (3.8-5.5); Red Cell Distribution Width 17.1 % (9.3-17.3); White Blood Count 9.1 T/CUMM (4-12)
[2018-03-29 05:14] LABS: Albumin 3.1 G/DL (3.4-5.0); Bilirubin,Total 0.6 MG/DL (0.2-1.0); Calcium 7.3 MG/DL (8.5-10.1); Osmolality,Calculated 291.7 MOS/KG (273-304); Potassium 3.8 MMOL/L (3.5-5.1); Total Protein 6.5 G/DL (6.4-8.3)
[2018-03-29 07:17] LABS: Hemoglobin 4.9 GM/DL (14.0-18.0)
[2018-03-29 07:40] LABS: Anisocytosis 1+; Hypochromasia 1+; Platelet Estimate Normal
[2018-03-29 07:41] LABS: Poikilocytosis Slight
[2018-03-29] MEDS: CETIRIZINE 10 MG TABLET PO SCH (08:21)
[2018-03-29] MEDS: CALCIUM (CARBONATE)/VITAMIN D 600 MG-400 UNIT TABLET PO SCH (08:21)
[2018-03-29] MEDS: MULTIVITAMIN (CENTRUM) TABLET PO SCH (08:21)
[2018-03-29] MEDS: MAGNESIUM OXIDE 400 MG TABLET PO SCH ×2 (08:21→21:31)
[2018-03-29] MEDS: CARVEDILOL 6.25 MG TABLET PO SCH ×2 (08:21→16:34)
[2018-03-29] MEDS: FERROUS SULFATE 325 MG TABLET PO SCH (08:21)
[2018-03-29] MEDS: APIXABAN 5 MG TABLET PO SCH ×2 (08:21→21:32)
[2018-03-29] MEDS: AMIODARONE 200 MG TABLET PO SCH (08:21)
[2018-03-29] MEDS: MULTIVITAMIN (BEROCCA) TABLET PO SCH (08:21)
[2018-03-29] MEDS: TAMSULOSIN 0.4 MG CAPSULE PO SCH (08:21)
[2018-03-29] MEDS: ALLOPURINOL 100 MG TABLET PO SCH (08:21)
[2018-03-29] MEDS: carBAMazepine 200 MG TABLET PO SCH ×3 (08:21→21:32)
[2018-03-29] MEDS: FLUTICASONE 50 MCG NASAL SPRAY 16 GM BOTTLE BOTH NARES SCH ×2 (08:22→21:32)
[2018-03-29 08:54] LABS: Hematocrit 17.2 VOL% (42.0-52.0); Hemoglobin 4.8 GM/DL (14.0-18.0)
[2018-03-29] MEDS ORDERED: SODIUM CHLORIDE 0.9% 1,000 ML IV PRN (08:59)
[2018-03-29] MEDS: ACETAMINOPHEN 325 MG TABLET PO PRN (10:24)
[2018-03-29 18:53] LABS: Hematocrit 21.1 VOL% (42.0-52.0)
[2018-03-29 18:57] LABS: Hemoglobin 6.2 GM/DL (14.0-18.0)
[2018-03-29] MEDS: ATORVASTATIN 40 MG TABLET PO SCH (21:32)
[2018-03-29] MEDS: SERTRALINE 25 MG TABLET PO SCH (21:32)
[2018-03-29] MEDS: PANTOPRAZOLE 40 MG TABLET PO SCH (21:32)
[2018-03-30 02:53] LABS: Basophils % 0.6 % (0.0-0.8); Eosinophils # 0.2 10*3/uL (0.0-0.87); Eosinophils % 3.4 % (0.00-10.9); Hematocrit 26.2 VOL% (42.0-52.0); Hemoglobin 7.9 GM/DL (14.0-18.0); Immature Granulocytes % 0.4 %; Immature Granulocytes Absolute 0.03 #; Lymphocytes # 1.2 10*3/uL (1.4-4.0); Mean Corpuscular HGB Conc 30.2 GM/DL (32-36); Mean Corpuscular Hemoglobin 24 PG (27-34); Mean Corpuscular Volume 79.2 FL (87-102); Mean Platelet Volume 9.9 FL (9.6-12.0); Monocytes # 0.7 10*3/uL (0.11-0.8); Monocytes % 9.7 % (1.7-12.7); Neutrophils # 4.6 10*3/uL (1.4-7.4); Neutrophils % 67.9 % (38.7-73.9); Platelet Count 173 T/CUMM (130-400); Red Blood Count 3.31 MC/CUMM (3.8-5.5); Red Cell Distribution Width 17.1 % (9.3-17.3); White Blood Count 6.8 T/CUMM (4-12)
[2018-03-30 03:08] LABS: Calcium 7.8 MG/DL (8.5-10.1); Potassium 3.7 MMOL/L (3.5-5.1)
[2018-03-30 07:38] LABS: % Iron Saturation 13.6 % (18-50); Ferritin 9.5 ng/ml (26-388)
[2018-03-30] MEDS: APIXABAN 5 MG TABLET PO SCH ×2 (08:22→20:51)
[2018-03-30] MEDS: carBAMazepine 200 MG TABLET PO SCH ×3 (08:22→20:51)
[2018-03-30] MEDS: FERROUS SULFATE 325 MG TABLET PO SCH (08:22)
[2018-03-30] MEDS: AMIODARONE 200 MG TABLET PO SCH (08:22)
[2018-03-30] MEDS: ALLOPURINOL 100 MG TABLET PO SCH (08:22)
[2018-03-30] MEDS: MAGNESIUM OXIDE 400 MG TABLET PO SCH ×2 (08:22→20:51)
[2018-03-30] MEDS: MULTIVITAMIN (BEROCCA) TABLET PO SCH (08:22)
[2018-03-30] MEDS: CALCIUM (CARBONATE)/VITAMIN D 600 MG-400 UNIT TABLET PO SCH (08:22)
[2018-03-30] MEDS: TAMSULOSIN 0.4 MG CAPSULE PO SCH (08:23)
[2018-03-30] MEDS: MULTIVITAMIN (CENTRUM) TABLET PO SCH (08:23)
[2018-03-30] MEDS: CETIRIZINE 10 MG TABLET PO SCH (08:23)
[2018-03-30] MEDS: FLUTICASONE 50 MCG NASAL SPRAY 16 GM BOTTLE BOTH NARES SCH ×2 (08:24→20:51)
[2018-03-30] MEDS: LEVOFLOXACIN INJ 750 MG in PREMIX 1 EACH IV SCH (08:24)
[2018-03-30] MEDS: CARVEDILOL 6.25 MG TABLET PO SCH ×2 (08:31→17:25)
[2018-03-30] MEDS ORDERED: IRON DEXTRAN 25 MG in SYRINGE 1 EACH IV ONE (14:00)
[2018-03-30] MEDS ORDERED: SODIUM CHLORIDE 0.9% IV ONE (15:00)
[2018-03-30] MEDS ORDERED: IRON DEXTRAN IV ONE (15:00)
[2018-03-30] MEDS: SERTRALINE 25 MG TABLET PO SCH (20:51)
[2018-03-30] MEDS: PANTOPRAZOLE 40 MG TABLET PO SCH (20:51)
[2018-03-30] MEDS: ATORVASTATIN 40 MG TABLET PO SCH (20:51)
[2018-03-30] MEDS: ACETAMINOPHEN 325 MG TABLET PO PRN (21:12)
[2018-03-30] MEDS ORDERED: ACETAMINOPHEN 325 MG TABLET PO ONE (22:30)
[2018-03-30] MEDS ORDERED: FUROSEMIDE 40 MG/4 ML VIAL IV ONE (22:30)
[2018-03-31 06:29] LABS: Basophils % 0.4 % (0.0-0.8); Eosinophils # 0.2 10*3/uL (0.0-0.87); Eosinophils % 2.1 % (0.00-10.9); Hemoglobin 8.3 GM/DL (14.0-18.0); Immature Granulocytes % 0.4 %; Immature Granulocytes Absolute 0.04 #; Lymphocytes # 1.2 10*3/uL (1.4-4.0); Lymphocytes % 11.9 % (21.2-54.2); Mean Corpuscular HGB Conc 29.6 GM/DL (32-36); Mean Corpuscular Hemoglobin 23 PG (27-34); Mean Corpuscular Volume 78.9 FL (87-102); Mean Platelet Volume 10.3 FL (9.6-12.0); Monocytes # 0.8 10*3/uL (0.11-0.8); Monocytes % 8.5 % (1.7-12.7); NRBC # 0.02 10*3/uL; Neutrophils # 7.5 10*3/uL (1.4-7.4); Neutrophils % 76.7 % (38.7-73.9); Platelet Count 202 T/CUMM (130-400); Red Blood Count 3.55 MC/CUMM (3.8-5.5); Red Cell Distribution Width 18.1 % (9.3-17.3); White Blood Count 9.8 T/CUMM (4-12)
[2018-03-31 06:49] LABS: Calcium 8.3 MG/DL (8.5-10.1); Osmolality,Calculated 284.1 MOS/KG (273-304); Potassium 3.6 MMOL/L (3.5-5.1)
[2018-03-31] MEDS: LEVOFLOXACIN INJ 750 MG in PREMIX 1 EACH IV SCH (09:13)
[2018-03-31] MEDS: FLUTICASONE 50 MCG NASAL SPRAY 16 GM BOTTLE BOTH NARES SCH ×2 (09:25→20:28)
[2018-03-31] MEDS ORDERED: PROPOFOL 200 MG/20 ML VIAL IV ONE (11:41)
[2018-03-31] MEDS ORDERED: LIDOCAINE 100 MG/5 ML SYRINGE ONE (11:41)
[2018-03-31] MEDS: CALCIUM (CARBONATE)/VITAMIN D 600 MG-400 UNIT TABLET PO SCH (14:00)
[2018-03-31] MEDS: AMIODARONE 200 MG TABLET PO SCH (14:00)
[2018-03-31] MEDS: MULTIVITAMIN (BEROCCA) TABLET PO SCH (14:00)
[2018-03-31] MEDS: MULTIVITAMIN (CENTRUM) TABLET PO SCH (14:00)
[2018-03-31] MEDS: carBAMazepine 200 MG TABLET PO SCH ×3 (14:00→20:28)
[2018-03-31] MEDS: CARVEDILOL 6.25 MG TABLET PO SCH ×2 (14:01→17:22)
[2018-03-31] MEDS: ALLOPURINOL 100 MG TABLET PO SCH (14:01)
[2018-03-31] MEDS: MAGNESIUM OXIDE 400 MG TABLET PO SCH ×2 (14:01→20:28)
[2018-03-31] MEDS: CETIRIZINE 10 MG TABLET PO SCH (14:01)
[2018-03-31] MEDS: APIXABAN 5 MG TABLET PO SCH ×2 (14:02→20:28)
[2018-03-31] MEDS: TAMSULOSIN 0.4 MG CAPSULE PO SCH (14:02)
[2018-03-31] MEDS: FERROUS SULFATE 325 MG TABLET PO SCH (14:06)
[2018-03-31] MEDS: FUROSEMIDE 20 MG TABLET PO SCH (15:54)
[2018-03-31] MEDS: ATORVASTATIN 40 MG TABLET PO SCH (20:28)
[2018-03-31] MEDS: PANTOPRAZOLE 40 MG TABLET PO SCH (20:28)
[2018-03-31] MEDS: SERTRALINE 25 MG TABLET PO SCH (20:28)
[2018-04-01 07:57] LABS: Basophils % 0.4 % (0.0-0.8); Eosinophils # 0.3 10*3/uL (0.0-0.87); Eosinophils % 4.1 % (0.00-10.9); Hematocrit 26.6 VOL% (42.0-52.0); Hemoglobin 8.1 GM/DL (14.0-18.0); Immature Granulocytes % 0.4 %; Immature Granulocytes Absolute 0.03 #; Lymphocytes # 0.9 10*3/uL (1.4-4.0); Lymphocytes % 12.7 % (21.2-54.2); Mean Corpuscular HGB Conc 30.5 GM/DL (32-36); Mean Corpuscular Hemoglobin 24 PG (27-34); Mean Corpuscular Volume 78.2 FL (87-102); Mean Platelet Volume 9.7 FL (9.6-12.0); Monocytes # 0.6 10*3/uL (0.11-0.8); Monocytes % 9.1 % (1.7-12.7); NRBC # 0.03 10*3/uL; Neutrophils % 73.3 % (38.7-73.9); Platelet Count 195 T/CUMM (130-400); Red Cell Distribution Width 18.6 % (9.3-17.3); White Blood Count 6.9 T/CUMM (4-12)
[2018-04-01 08:21] LABS: Calcium 8.2 MG/DL (8.5-10.1); Osmolality,Calculated 280.3 MOS/KG (273-304); Potassium 3.5 MMOL/L (3.5-5.1)
[2018-04-01] MEDS: carBAMazepine 200 MG TABLET PO SCH (08:57)
[2018-04-01] MEDS: MAGNESIUM OXIDE 400 MG TABLET PO SCH (08:57)
[2018-04-01] MEDS: AMIODARONE 200 MG TABLET PO SCH (08:57)
[2018-04-01] MEDS: CARVEDILOL 6.25 MG TABLET PO SCH (08:57)
[2018-04-01] MEDS: FERROUS SULFATE 325 MG TABLET PO SCH (08:57)
[2018-04-01] MEDS: APIXABAN 5 MG TABLET PO SCH (08:58)
[2018-04-01] MEDS: CALCIUM (CARBONATE)/VITAMIN D 600 MG-400 UNIT TABLET PO SCH (08:58)
[2018-04-01] MEDS: ALLOPURINOL 100 MG TABLET PO SCH (08:58)
[2018-04-01] MEDS: FUROSEMIDE 20 MG TABLET PO SCH (08:58)
[2018-04-01] MEDS: MULTIVITAMIN (BEROCCA) TABLET PO SCH (08:58)
[2018-04-01] MEDS: CETIRIZINE 10 MG TABLET PO SCH (08:58)
[2018-04-01] MEDS: LEVOFLOXACIN INJ 750 MG in PREMIX 1 EACH IV SCH (08:58)
[2018-04-01 12:15] VITALS: BP 125/64
== END 2018-04-01 11:55 | disposition home or self-care (01) | DRG 872 ==
LOC: N.ED 22:32 → N.EDINP 03-29 01:57 → N.2E 03-29 02:26
PROVIDERS: ADMIT Internal Medicine; ATTEND Internal Medicine

== ENCOUNTER 2018-10-27 13:42 | Observation (INO) ==
[2018-10-27 14:10] LABS: Basophils % 0.7 % (0.0-0.8); Eosinophils # 0.2 10*3/uL (0.0-0.87); Eosinophils % 4.8 % (0.00-10.9); Hematocrit 34.6 VOL% (42.0-52.0); Hemoglobin 10.5 GM/DL (14.0-18.0); Immature Granulocytes % 0.2 %; Immature Granulocytes Absolute 0.01 #; Lymphocytes # 1.2 10*3/uL (1.4-4.0); Lymphocytes % 27.7 % (21.2-54.2); Mean Corpuscular HGB Conc 30.3 GM/DL (32-36); Mean Corpuscular Volume 92.8 FL (87-102); Mean Platelet Volume 9.3 FL (9.6-12.0); Neutrophils % 58.6 % (38.7-73.9); Platelet Count 180 T/CUMM (130-400); Red Blood Count 3.73 MC/CUMM (3.8-5.5); White Blood Count 4.2 T/CUMM (4-12)
[2018-10-27 14:48] LABS: Alanine Aminotransferase 11 U/L (16-61); Albumin 3.9 G/DL (3.4-5.0); Alkaline Phosphatase 74 U/L (45-117); Aspartate Amino Transferase 13 U/L (0-37); Bilirubin,Total < 0.39 MG/DL (0.2-1.0); Blood Urea Nitrogen 31 MG/DL (7-18); Glucose 88 MG/DL (74-106); Osmolality,Calculated 291.8 MOS/KG (273-304); Total Protein 7.2 G/DL (6.4-8.3)
[2018-10-27] MEDS ORDERED: POTASSIUM CHLORIDE 20 MEQ TABLET PO PRN (16:33)
[2018-10-27] MEDS ORDERED: PROMETHAZINE 25 MG TABLET PO PRN (16:33)
[2018-10-27] MEDS ORDERED: ZALEPLON 5 MG CAPSULE PO PRN (16:33)
[2018-10-27] MEDS ORDERED: DOCUSATE SODIUM 100 MG CAPSULE PO PRN (16:33)
[2018-10-27] MEDS ORDERED: diphenhydrAMINE CAP 25 MG CAPSULE PO PRN (16:33)
[2018-10-27] MEDS ORDERED: ACETAMINOPHEN 325 MG TABLET PO PRN (16:33)
[2018-10-27] MEDS ORDERED: ONDANSETRON 4 MG/2 ML VIAL IV PRN (16:33)
[2018-10-27] MEDS ORDERED: MAGNESIUM SULF RIDER 2 GM in PREMIX 1 EACH IV PRN (16:33)
[2018-10-27] MEDS ORDERED: guaiFENesin/DM ER 600-30 MG TABLET PO PRN (16:33)
[2018-10-27] MEDS ORDERED: MAGNESIUM SULF RIDER 4 GM in PREMIX 1 EACH IV PRN (16:33)
[2018-10-27] MEDS ORDERED: LACTULOSE 20 GM/30 ML UDCUP PO PRN (16:33)
[2018-10-27] MEDS ORDERED: DILTIAZEM 30 MG TABLET PO PRN (16:35)
[2018-10-27] MEDS ORDERED: NITROGLYCERIN SL 0.4 MG TABLET SL PRN (16:35)
[2018-10-27] MEDS ORDERED: SODIUM CHLORIDE 0.9% 1,000 ML IV SCH (17:30)
[2018-10-27] MEDS: INSULIN LISPRO 100 UNIT/ML SUBCUT SCH (20:49)
[2018-10-27] MEDS ORDERED: SERTRALINE 25 MG TABLET PO SCH (21:00)
[2018-10-27] MEDS ORDERED: PANTOPRAZOLE 40 MG TABLET PO SCH (21:00)
[2018-10-27] MEDS ORDERED: ATORVASTATIN 40 MG TABLET PO SCH (21:00)
[2018-10-27] MEDS: AMIODARONE 200 MG TABLET PO SCH (21:12)
[2018-10-27] MEDS: carBAMazepine 200 MG TABLET PO SCH (21:12)
[2018-10-27] MEDS: APIXABAN 2.5 MG TABLET PO SCH (21:13)
[2018-10-27] MEDS: CARVEDILOL 12.5 MG TABLET PO SCH (21:13)
[2018-10-27] MEDS: MAGNESIUM OXIDE 400 MG TABLET PO SCH (21:13)
[2018-10-28 06:00] LABS: Basophils % 0.4 % (0.0-0.8); Eosinophils # 0.3 10*3/uL (0.0-0.87); Eosinophils % 5.2 % (0.00-10.9); Immature Granulocytes % 0.2 %; Immature Granulocytes Absolute 0.01 #; Lymphocytes # 1.3 10*3/uL (1.4-4.0); Lymphocytes % 26.2 % (21.2-54.2); Mean Corpuscular HGB Conc 31.3 GM/DL (32-36); Mean Corpuscular Volume 91.2 FL (87-102); Mean Platelet Volume 9.9 FL (9.6-12.0); Monocytes % 7.8 % (1.7-12.7); Neutrophils % 60.2 % (38.7-73.9); Platelet Count 188 T/CUMM (130-400); Red Blood Count 3.51 MC/CUMM (3.8-5.5); Red Cell Distribution Width 15.1 % (9.3-17.3); White Blood Count 4.8 T/CUMM (4-12)
[2018-10-28 06:37] LABS: Blood Urea Nitrogen 26 MG/DL (7-18); Calcium 8.6 MG/DL (8.5-10.1); Glucose 93 MG/DL (74-106); Osmolality,Calculated 290.8 MOS/KG (273-304); Troponin I < 0.015 NG/ML (0.00-0.045)
[2018-10-28 07:06] LABS: Apearance,Urine CLEAR (Clear); Bilirubin,Urine Negative (Negative); Blood, Urine Negative (Negative); Glucose,Urine (UA) Negative (Negative); Ketones,Urine Negative (Negative); Mucus,Urine Occasional /LPF (Occasional); Nitrite,Urine Negative (Negative); Protein,Urine Negative; RBC,Urine <1 /HPF (0-4); Squamous Epithelial Cell,Urine Occasional /HPF (0-10); Urine Color Yellow (Yellow); Urine Specific Gravity 1.024 (1.001-1.035); Urine Urobilinogen < 2.0 EU/DL (0.2-1.0); WBC,Urine 5 /HPF (0-6)
[2018-10-28] MEDS: INSULIN LISPRO 100 UNIT/ML SUBCUT SCH ×2 (08:29→12:16)
[2018-10-28] MEDS: CARVEDILOL 12.5 MG TABLET PO SCH (08:30)
[2018-10-28] MEDS: APIXABAN 2.5 MG TABLET PO SCH (08:30)
[2018-10-28] MEDS: carBAMazepine 200 MG TABLET PO SCH (08:30)
[2018-10-28] MEDS: MAGNESIUM OXIDE 400 MG TABLET PO SCH (08:31)
[2018-10-28] MEDS: AMIODARONE 200 MG TABLET PO SCH (08:31)
[2018-10-28] MEDS ORDERED: FUROSEMIDE 20 MG TABLET PO SCH (09:00)
[2018-10-28] MEDS ORDERED: PANTOPRAZOLE 40 MG TABLET PO SCH (09:00)
[2018-10-28] MEDS ORDERED: CALCIUM (CARBONATE)/VITAMIN D 600 MG-400 UNIT TABLET PO SCH (09:00)
[2018-10-28] MEDS ORDERED: ALLOPURINOL 100 MG TABLET PO SCH (09:00)
[2018-10-28] MEDS ORDERED: CETIRIZINE 10 MG TABLET PO SCH (09:00)
[2018-10-28] MEDS ORDERED: ASCORBIC ACID 500 MG TABLET PO SCH (09:00)
[2018-10-28] MEDS ORDERED: TAMSULOSIN 0.4 MG CAPSULE PO SCH (09:00)
[2018-10-28] MEDS ORDERED: FERROUS SULFATE 325 MG TABLET PO SCH (09:00)
[2018-10-28] MEDS ORDERED: MULTIVITAMIN (CENTRUM) TABLET PO SCH (09:00)
[2018-10-28] MEDS ORDERED: CYANOCOBALAMIN 500 MCG TABLET PO SCH (09:00)
[2018-10-28] MEDS ORDERED: ASPIRIN EC 81 MG TABLET PO SCH (09:00)
[2018-10-28] MEDS ORDERED: DILTIAZEM 60 MG TABLET PO SCH (09:55)
[2018-10-28] MEDS ORDERED: SERTRALINE 25 MG TABLET PO ONE (09:57)
[2018-10-28 13:08] VITALS: BP 154/81
[2018-10-28] MEDS ORDERED: SERTRALINE 25 MG TABLET PO SCH (21:00)
== END 2018-10-28 14:42 | disposition home or self-care (01) ==
LOC: N.ED 13:42 → N.EDINP 13:42 → N.TELES 18:58
PROVIDERS: ADMIT Internal Medicine Cardiovascular Disease; ATTEND Internal Medicine Cardiovascular Disease

== ENCOUNTER 2018-11-25 14:42 | Inpatient (IN) ==
[2018-11-25] MEDS ORDERED: ALBUTEROL/IPRATROPIUM 3 ML NEB RESP TX STA (15:04)
[2018-11-25 15:38] LABS: Basophils % 0.9 % (0.0-0.8); Eosinophils # 0.2 10*3/uL (0.0-0.87); Eosinophils % 4.8 % (0.00-10.9); Hemoglobin 8.8 GM/DL (14.0-18.0); Immature Granulocytes % 0.2 %; Immature Granulocytes Absolute 0.01 #; Lymphocytes % 23.6 % (21.2-54.2); Mean Corpuscular HGB Conc 30.3 GM/DL (32-36); Mean Corpuscular Volume 92.9 FL (87-102); Monocytes % 8.2 % (1.7-12.7); Neutrophils % 62.3 % (38.7-73.9); Platelet Count 213 T/CUMM (130-400); Red Blood Count 3.12 MC/CUMM (3.8-5.5); Red Cell Distribution Width 15.7 % (9.3-17.3); White Blood Count 4.4 T/CUMM (4-12)
[2018-11-25 15:49] LABS: PT Patient Result 11.1 SECS; Partial Thromboplastin Time 31.3 SECS (0-40)
[2018-11-25 16:06] LABS: Alanine Aminotransferase 16 U/L (16-61); Albumin 3.7 G/DL (3.4-5.0); Alkaline Phosphatase 76 U/L (45-117); Aspartate Amino Transferase 22 U/L (0-37); Bilirubin,Total < 0.39 MG/DL (0.2-1.0); Blood Urea Nitrogen 25 MG/DL (7-18); Calcium 8.6 MG/DL (8.5-10.1); Glucose 86 MG/DL (74-106); Osmolality,Calculated 283.3 MOS/KG (273-304); Total Protein 7.6 G/DL (6.4-8.3); Troponin I < 0.015 NG/ML (0.00-0.045)
[2018-11-25 16:31] LABS: Apearance,Urine CLOUDY (Clear); Bacteria,Urine Occasional /HPF (Few); Bilirubin,Urine Negative (Negative); Blood, Urine Negative (Negative); Glucose,Urine (UA) Negative (Negative); Hyaline Casts,Urine 12 /LPF (0-3); Ketones,Urine Negative (Negative); Mucus,Urine Occasional /LPF (Occasional); Nitrite,Urine Negative (Negative); Protein,Urine Negative; RBC,Urine 7 /HPF (0-4); Squamous Epithelial Cell,Urine Occasional /HPF (0-10); Urine Color Yellow (Yellow); Urine Specific Gravity 1.012 (1.001-1.035); Urine Urobilinogen < 2.0 EU/DL (0.2-1.0); WBC,Urine 54 /HPF (0-6)
[2018-11-25] MEDS ORDERED: SODIUM CHLORIDE 0.9% 1,000 ML IV PRN (17:21)
[2018-11-25] MEDS ORDERED: ONDANSETRON 4 MG/2 ML VIAL IV PRN (17:21)
[2018-11-26 05:39] LABS: Basophils % 0.6 % (0.0-0.8); Eosinophils # 0.2 10*3/uL (0.0-0.87); Eosinophils % 4.2 % (0.00-10.9); Hematocrit 30.1 VOL% (42.0-52.0); Hemoglobin 9.3 GM/DL (14.0-18.0); Immature Granulocytes % 0.2 %; Immature Granulocytes Absolute 0.01 #; Lymphocytes # 1.4 10*3/uL (1.4-4.0); Lymphocytes % 25.6 % (21.2-54.2); Mean Corpuscular HGB Conc 30.9 GM/DL (32-36); Mean Corpuscular Volume 91.2 FL (87-102); Mean Platelet Volume 9.9 FL (9.6-12.0); Neutrophils % 60.4 % (38.7-73.9); Platelet Count 204 T/CUMM (130-400); Red Cell Distribution Width 15.9 % (9.3-17.3); White Blood Count 5.4 T/CUMM (4-12)
[2018-11-26 06:27] LABS: Calcium 8.5 MG/DL (8.5-10.1); Thyroid Stimulating Hormone 2.57 uIU/ml (0.358-3.74)
[2018-11-26] MEDS: PANTOPRAZOLE 40 MG TABLET PO SCH (09:25)
[2018-11-26] MEDS: CETIRIZINE 10 MG TABLET PO SCH (10:25)
[2018-11-26] MEDS: AMIODARONE 200 MG TABLET PO SCH (10:26)
[2018-11-26] MEDS: APIXABAN 2.5 MG TABLET PO SCH ×2 (10:26→20:36)
[2018-11-26] MEDS: ALLOPURINOL 100 MG TABLET PO SCH (10:26)
[2018-11-26] MEDS: carBAMazepine 200 MG TABLET PO SCH ×2 (10:26→20:36)
[2018-11-26] MEDS: TAMSULOSIN 0.4 MG CAPSULE PO SCH (10:26)
[2018-11-26] MEDS: FUROSEMIDE 20 MG TABLET PO SCH (10:26)
[2018-11-26] MEDS: CARVEDILOL 12.5 MG TABLET PO SCH ×2 (10:27→17:05)
[2018-11-26] MEDS: PIPERACILLIN/TAZOBACTAM 3,375 MG in SODIUM CHLORIDE 0.9% 100 ML IV SCH ×2 (12:35→17:59)
[2018-11-26] MEDS: AZITHROMYCIN INJ 500 MG in SODIUM CHLORIDE 0.9% 250 ML IV SCH (12:36)
[2018-11-26] MEDS: VANCOMYCIN INJ 1,500 MG in SODIUM CHLORIDE 0.9% 500 ML IV SCH (14:34)
[2018-11-26] MEDS ORDERED: NITROGLYCERIN SL 0.4 MG TABLET SL PRN (15:41)
[2018-11-26] MEDS: DILTIAZEM 60 MG TABLET PO SCH ×2 (17:05→20:36)
[2018-11-26] MEDS: ATORVASTATIN 40 MG TABLET PO SCH (20:36)
[2018-11-26] MEDS: SERTRALINE 50 MG TABLET PO SCH (20:36)
[2018-11-26] MEDS: MAGNESIUM OXIDE 400 MG TABLET PO SCH (20:36)
[2018-11-27] MEDS: PIPERACILLIN/TAZOBACTAM 3,375 MG in SODIUM CHLORIDE 0.9% 100 ML IV SCH ×3 (03:10→19:42)
[2018-11-27 05:00] LABS: Basophils % 0.7 % (0.0-0.8); Eosinophils # 0.2 10*3/uL (0.0-0.87); Eosinophils % 3.6 % (0.00-10.9); Hematocrit 30.5 VOL% (42.0-52.0); Hemoglobin 9.6 GM/DL (14.0-18.0); Immature Granulocytes % 0.2 %; Immature Granulocytes Absolute 0.01 #; Lymphocytes # 1.3 10*3/uL (1.4-4.0); Lymphocytes % 21.7 % (21.2-54.2); Mean Corpuscular HGB Conc 31.5 GM/DL (32-36); Mean Corpuscular Volume 90.5 FL (87-102); Mean Platelet Volume 9.5 FL (9.6-12.0); Monocytes % 7.7 % (1.7-12.7); Neutrophils % 66.1 % (38.7-73.9); Platelet Count 198 T/CUMM (130-400); Red Blood Count 3.37 MC/CUMM (3.8-5.5); Red Cell Distribution Width 15.9 % (9.3-17.3); White Blood Count 6.1 T/CUMM (4-12)
[2018-11-27 05:30] LABS: Calcium 8.5 MG/DL (8.5-10.1); Osmolality,Calculated 280.4 MOS/KG (273-304)
[2018-11-27] MEDS: AMIODARONE 200 MG TABLET PO SCH (08:38)
[2018-11-27] MEDS: FUROSEMIDE 20 MG TABLET PO SCH (08:38)
[2018-11-27] MEDS: PANTOPRAZOLE 40 MG TABLET PO SCH (08:38)
[2018-11-27] MEDS: MAGNESIUM OXIDE 400 MG TABLET PO SCH ×2 (08:38→21:41)
[2018-11-27] MEDS: CETIRIZINE 10 MG TABLET PO SCH (08:38)
[2018-11-27] MEDS: APIXABAN 2.5 MG TABLET PO SCH ×2 (08:38→21:41)
[2018-11-27] MEDS: DILTIAZEM 60 MG TABLET PO SCH (08:38)
[2018-11-27] MEDS: TAMSULOSIN 0.4 MG CAPSULE PO SCH (08:38)
[2018-11-27] MEDS: carBAMazepine 200 MG TABLET PO SCH ×2 (08:39→21:41)
[2018-11-27] MEDS: CYANOCOBALAMIN 500 MCG TABLET PO SCH (08:39)
[2018-11-27] MEDS: ALLOPURINOL 100 MG TABLET PO SCH (08:39)
[2018-11-27] MEDS: CARVEDILOL 12.5 MG TABLET PO SCH ×2 (08:39→16:06)
[2018-11-27] MEDS: ALBUTEROL/IPRATROPIUM 3 ML NEB RESP TX SCH ×4 (10:45→22:40)
[2018-11-27] MEDS: DILTIAZEM CD 180 MG CAPSULE PO SCH (12:44)
[2018-11-27] MEDS: VANCOMYCIN INJ 1,500 MG in SODIUM CHLORIDE 0.9% 500 ML IV SCH (14:15)
[2018-11-27] MEDS: AZITHROMYCIN INJ 500 MG in SODIUM CHLORIDE 0.9% 250 ML IV SCH (16:15)
[2018-11-27] MEDS: ATORVASTATIN 40 MG TABLET PO SCH (21:41)
[2018-11-27] MEDS: SERTRALINE 50 MG TABLET PO SCH (21:41)
[2018-11-28] MEDS: ALBUTEROL/IPRATROPIUM 3 ML NEB RESP TX SCH ×5 (03:19→20:22)
[2018-11-28] MEDS: PIPERACILLIN/TAZOBACTAM 3,375 MG in SODIUM CHLORIDE 0.9% 100 ML IV SCH ×3 (04:53→18:21)
[2018-11-28 05:07] LABS: Basophils % 0.7 % (0.0-0.8); Eosinophils # 0.2 10*3/uL (0.0-0.87); Eosinophils % 3.9 % (0.00-10.9); Hematocrit 31.5 VOL% (42.0-52.0); Hemoglobin 9.9 GM/DL (14.0-18.0); Immature Granulocytes % 0.2 %; Immature Granulocytes Absolute 0.01 #; Lymphocytes # 1.1 10*3/uL (1.4-4.0); Lymphocytes % 18.7 % (21.2-54.2); Mean Corpuscular HGB Conc 31.4 GM/DL (32-36); Mean Corpuscular Volume 90.5 FL (87-102); Mean Platelet Volume 9.5 FL (9.6-12.0); Monocytes % 6.5 % (1.7-12.7); Platelet Count 200 T/CUMM (130-400); Red Blood Count 3.48 MC/CUMM (3.8-5.5); Red Cell Distribution Width 15.7 % (9.3-17.3); White Blood Count 5.7 T/CUMM (4-12)
[2018-11-28 05:28] LABS: Calcium 8.8 MG/DL (8.5-10.1); Osmolality,Calculated 281.4 MOS/KG (273-304)
[2018-11-28] MEDS: MAGNESIUM OXIDE 400 MG TABLET PO SCH ×2 (08:09→21:31)
[2018-11-28] MEDS: TAMSULOSIN 0.4 MG CAPSULE PO SCH (08:09)
[2018-11-28] MEDS: CETIRIZINE 10 MG TABLET PO SCH (08:09)
[2018-11-28] MEDS: APIXABAN 2.5 MG TABLET PO SCH ×2 (08:10→21:31)
[2018-11-28] MEDS: AMIODARONE 200 MG TABLET PO SCH (08:10)
[2018-11-28] MEDS: carBAMazepine 200 MG TABLET PO SCH ×2 (08:10→21:31)
[2018-11-28] MEDS: ALLOPURINOL 100 MG TABLET PO SCH (08:10)
[2018-11-28] MEDS: CARVEDILOL 12.5 MG TABLET PO SCH ×2 (08:10→18:21)
[2018-11-28] MEDS: FUROSEMIDE 20 MG TABLET PO SCH (08:10)
[2018-11-28] MEDS: DILTIAZEM CD 180 MG CAPSULE PO SCH (08:11)
[2018-11-28] MEDS: PANTOPRAZOLE 40 MG TABLET PO SCH (08:11)
[2018-11-28] MEDS: CYANOCOBALAMIN 500 MCG TABLET PO SCH (08:11)
[2018-11-28] MEDS: VANCOMYCIN INJ 1,500 MG in SODIUM CHLORIDE 0.9% 500 ML IV SCH (13:39)
[2018-11-28] MEDS: AZITHROMYCIN INJ 500 MG in SODIUM CHLORIDE 0.9% 250 ML IV SCH (13:57)
[2018-11-28] MEDS: ATORVASTATIN 40 MG TABLET PO SCH (21:31)
[2018-11-28] MEDS: SERTRALINE 50 MG TABLET PO SCH (21:31)
[2018-11-29] MEDS: ALBUTEROL/IPRATROPIUM 3 ML NEB RESP TX SCH ×3 (02:16→07:37)
[2018-11-29] MEDS: PIPERACILLIN/TAZOBACTAM 3,375 MG in SODIUM CHLORIDE 0.9% 100 ML IV SCH (04:29)
[2018-11-29 08:36] LABS: Basophils % 0.5 % (0.0-0.8); Eosinophils # 0.2 10*3/uL (0.0-0.87); Eosinophils % 4.1 % (0.00-10.9); Hematocrit 32.9 VOL% (42.0-52.0); Hemoglobin 10.6 GM/DL (14.0-18.0); Immature Granulocytes % 0.2 %; Immature Granulocytes Absolute 0.01 #; Mean Corpuscular HGB Conc 32.2 GM/DL (32-36); Mean Corpuscular Volume 89.9 FL (87-102); Mean Platelet Volume 9.2 FL (9.6-12.0); Monocytes % 6.4 % (1.7-12.7); Neutrophils % 71.8 % (38.7-73.9); Platelet Count 215 T/CUMM (130-400); Red Blood Count 3.66 MC/CUMM (3.8-5.5); Red Cell Distribution Width 15.6 % (9.3-17.3); White Blood Count 5.6 T/CUMM (4-12)
[2018-11-29 09:07] LABS: Albumin 3.6 G/DL (3.4-5.0); Bilirubin,Total 0.4 MG/DL (0.2-1.0); Calcium 8.5 MG/DL (8.5-10.1); Osmolality,Calculated 277.5 MOS/KG (273-304); Total Protein 7.5 G/DL (6.4-8.3)
[2018-11-29] MEDS: FUROSEMIDE 20 MG TABLET PO SCH (09:17)
[2018-11-29] MEDS: CARVEDILOL 12.5 MG TABLET PO SCH (09:17)
[2018-11-29] MEDS: MAGNESIUM OXIDE 400 MG TABLET PO SCH (09:17)
[2018-11-29] MEDS: APIXABAN 2.5 MG TABLET PO SCH (09:18)
[2018-11-29] MEDS: ALLOPURINOL 100 MG TABLET PO SCH (09:18)
[2018-11-29] MEDS: carBAMazepine 200 MG TABLET PO SCH (09:18)
[2018-11-29] MEDS: TAMSULOSIN 0.4 MG CAPSULE PO SCH (09:18)
[2018-11-29] MEDS: PANTOPRAZOLE 40 MG TABLET PO SCH (09:18)
[2018-11-29] MEDS: DILTIAZEM CD 180 MG CAPSULE PO SCH (09:18)
[2018-11-29] MEDS: CETIRIZINE 10 MG TABLET PO SCH (09:18)
[2018-11-29] MEDS: AMIODARONE 200 MG TABLET PO SCH (09:34)
[2018-11-29 09:49] VITALS: BP 147/73
[2018-11-29] MEDS: CYANOCOBALAMIN 500 MCG TABLET PO SCH (09:55)
== END 2018-11-29 10:44 | disposition home or self-care (01) | DRG 813 ==
LOC: N.ED 14:42 → N.EDINP 17:21 → SUATTDRO 17:26 → N.5E 18:18
PROVIDERS: ADMIT Hospitalist; ATTEND Internal Medicine

== ENCOUNTER 2020-04-04 14:03 | Inpatient (IN) ==
[2020-04-04] MEDS ORDERED: SODIUM CHLORIDE 0.9% 500 ML IV STA (16:02)
[2020-04-04] MEDS ORDERED: ASPIRIN 325 MG TABLET PO STA (16:02)
[2020-04-04 16:19] LABS: Basophils % 0.7 % (0.0-0.8); Eosinophils # 0.3 10*3/uL (0.0-0.87); Eosinophils % 5.7 % (0.00-10.9); Hematocrit 27.8 VOL% (42.0-52.0); Hemoglobin 8.5 GM/DL (14.0-18.0); Immature Granulocytes % 0.4 %; Immature Granulocytes Absolute 0.02 #; Lymphocytes % 18.6 % (21.2-54.2); Mean Corpuscular HGB Conc 30.6 GM/DL (32-36); Mean Corpuscular Volume 94.2 FL (87-102); Mean Platelet Volume 9.4 FL (9.6-12.0); Monocytes % 7.8 % (1.7-12.7); Neutrophils % 66.8 % (38.7-73.9); Platelet Count 266 T/CUMM (130-400); Red Blood Count 2.95 MC/CUMM (3.8-5.5); Red Cell Distribution Width 16.1 % (9.3-17.3); White Blood Count 5.5 T/CUMM (4-12)
[2020-04-04 16:46] LABS: Alanine Aminotransferase 10 U/L (16-61); Albumin 3.3 G/DL (3.4-5.0); Alkaline Phosphatase 70 U/L (45-117); Aspartate Amino Transferase 23 U/L (0-37); Bilirubin,Total < 0.39 MG/DL (0.2-1.0); Blood Urea Nitrogen 35 MG/DL (7-18); Calcium 9.6 MG/DL (8.5-10.1); Estimated Glom Filtration Rate 34 ML/MIN; Glucose 95 MG/DL (74-106); Osmolality,Calculated 284.5 MOS/KG (273-304); Total Protein 7.3 G/DL (6.4-8.3)
[2020-04-04] MEDS ORDERED: NITROGLYCERIN SL 0.4 MG TABLET SL PRN (17:49)
[2020-04-04] MEDS ORDERED: ACETAMINOPHEN 500 MG TABLET PO PRN (17:49)
[2020-04-04] MEDS ORDERED: DEXTROSE 50% 25 GM/50 ML VIAL IV PRN (17:56)
[2020-04-04] MEDS ORDERED: SIMETHICONE CHEW 125 MG TABLET PO PRN (17:56)
[2020-04-04] MEDS ORDERED: GLUCAGON 1 MG VIAL IM PRN (17:56)
[2020-04-04] MEDS ORDERED: ALUMINUM/MAGNES/SIMETH MAX STR 30 ML UDCUP PO PRN (17:56)
[2020-04-04] MEDS ORDERED: ONDANSETRON 4 MG/2 ML VIAL IV PRN (17:56)
[2020-04-04] MEDS ORDERED: hydrALAZINE 20 MG/1 ML VIAL IV PRN (17:56)
[2020-04-04] MEDS ORDERED: BISACODYL 5 MG TABLET PO PRN (17:56)
[2020-04-04] MEDS ORDERED: LACTULOSE 20 GM/30 ML UDCUP PO PRN (17:56)
[2020-04-04] MEDS ORDERED: ACETAMINOPHEN 325 MG TABLET PO PRN ×2 (17:56)
[2020-04-04] MEDS ORDERED: NICOTINE 21 MG/24 HR PATCH TRANSDERM PRN (17:56)
[2020-04-04] MEDS ORDERED: guaiFENesin/DM ER 600-30 MG TABLET PO PRN (17:56)
[2020-04-04] MEDS ORDERED: DOCUSATE SODIUM 100 MG CAPSULE PO PRN (17:56)
[2020-04-04] MEDS ORDERED: ZALEPLON 5 MG CAPSULE PO PRN (17:56)
[2020-04-04] MEDS ORDERED: diphenhydrAMINE CAP 25 MG CAPSULE PO PRN (17:56)
[2020-04-04] MEDS ORDERED: ALBUTEROL 2.5 MG/3 ML NEB RESP TX PRN (17:56)
[2020-04-04] MEDS: ALBUTEROL/IPRATROPIUM 3 ML NEB RESP TX SCH (20:11)
[2020-04-04] MEDS: cefTRIAXone 1,000 MG in SYRINGE 1 EACH IV SCH (21:53)
[2020-04-04] MEDS: SERTRALINE 50 MG TABLET PO SCH (21:53)
[2020-04-04] MEDS: ATORVASTATIN 40 MG TABLET PO SCH (21:53)
[2020-04-04] MEDS: APIXABAN 2.5 MG TABLET PO SCH (21:53)
[2020-04-04] MEDS: PANTOPRAZOLE 40 MG TABLET PO SCH (21:54)
[2020-04-04] MEDS: SODIUM CHLORIDE 0.45% 1,000 ML IV SCH (21:54)
[2020-04-04] MEDS: AZITHROMYCIN INJ 500 MG in SODIUM CHLORIDE 0.9% 250 ML IV SCH (21:54)
[2020-04-05] MEDS: ALBUTEROL/IPRATROPIUM 3 ML NEB RESP TX SCH ×4 (00:30→18:33)
[2020-04-05 05:09] LABS: Bilirubin,Urine Negative (Negative); Blood, Urine Negative (Negative); Glucose,Urine (UA) Negative (Negative); Ketones,Urine Negative (Negative); Mucus,Urine Occasional /LPF (Occasional); Nitrite,Urine Negative (Negative); Protein,Urine Negative; RBC,Urine 2 /HPF (0-4); Squamous Epithelial Cell,Urine Occasional /HPF (0-10); Urine Appearance CLEAR (Clear); Urine Color Yellow (Yellow); Urine Specific Gravity 1.019 (1.001-1.035); Urine Urobilinogen < 2.0 EU/DL (0.2-1.0); WBC,Urine 5 /HPF (0-6)
[2020-04-05 06:10] LABS: Basophils % 0.6 % (0.0-0.8); Eosinophils # 0.4 10*3/uL (0.0-0.87); Hematocrit 24.1 VOL% (42.0-52.0); Hemoglobin 7.6 GM/DL (14.0-18.0); Immature Granulocytes % 0.2 %; Immature Granulocytes Absolute 0.01 #; Lymphocytes % 21.5 % (21.2-54.2); Mean Corpuscular HGB Conc 31.5 GM/DL (32-36); Mean Corpuscular Volume 92.7 FL (87-102); Mean Platelet Volume 9.3 FL (9.6-12.0); Monocytes % 8.4 % (1.7-12.7); Neutrophils % 61.3 % (38.7-73.9); Platelet Count 218 T/CUMM (130-400); Red Cell Distribution Width 15.7 % (9.3-17.3); White Blood Count 4.7 T/CUMM (4-12)
[2020-04-05 06:30] LABS: Albumin 2.8 G/DL (3.4-5.0); Calcium 8.8 MG/DL (8.5-10.1); Osmolality,Calculated 289.1 MOS/KG (273-304); Risk Ratio 3.12; Total Protein 6.2 G/DL (6.4-8.3)
[2020-04-05 08:34] LABS: % Iron Saturation 12.6 % (18-50); Ferritin 25.9 ng/ml (26-388)
[2020-04-05 08:49] LABS: Folate 15.3 NG/ML (5.4-24.0)
[2020-04-05] MEDS ORDERED: DIVALPROEX ER 500 MG TABLET PO SCH (09:00)
[2020-04-05] MEDS ORDERED: DILTIAZEM CD 180 MG CAPSULE PO SCH (09:00)
[2020-04-05] MEDS ORDERED: PANTOPRAZOLE 40 MG TABLET PO SCH (09:00)
[2020-04-05] MEDS ORDERED: AMIODARONE 200 MG TABLET PO SCH ×2 (09:00→21:00)
[2020-04-05] MEDS: SODIUM CHLORIDE 0.45% 1,000 ML IV SCH (09:11)
[2020-04-05] MEDS: CETIRIZINE 10 MG TABLET PO SCH (09:12)
[2020-04-05] MEDS: MULTIVITAMIN (CENTRUM) TABLET PO SCH (09:12)
[2020-04-05] MEDS: APIXABAN 2.5 MG TABLET PO SCH ×2 (09:12→20:48)
[2020-04-05] MEDS: ASCORBIC ACID 500 MG TABLET PO SCH (09:12)
[2020-04-05] MEDS: CALCIUM (CARBONATE) 600 MG TABLET PO SCH (09:12)
[2020-04-05] MEDS: TAMSULOSIN 0.4 MG CAPSULE PO SCH (09:13)
[2020-04-05] MEDS: CHOLECALCIFEROL 1,000 UNIT TABLET PO SCH (09:13)
[2020-04-05] MEDS: allopurinoL 100 MG TABLET PO SCH (09:21)
[2020-04-05] MEDS ORDERED: DIVALPROEX ER 500 MG TABLET PO ONE (12:00)
[2020-04-05] MEDS ORDERED: IRON SUCROSE 300 MG in SODIUM CHLORIDE 0.9% 100 ML IV ONE (12:00)
[2020-04-05] MEDS ORDERED: DILTIAZEM 60 MG TABLET PO ONE (12:10)
[2020-04-05] MEDS: cefTRIAXone 1,000 MG in SYRINGE 1 EACH IV SCH (20:43)
[2020-04-05] MEDS: AZITHROMYCIN INJ 500 MG in SODIUM CHLORIDE 0.9% 250 ML IV SCH (20:46)
[2020-04-05] MEDS: LACTOBACILLUS RHAMNOSUS GG CAPSULE PO SCH (20:48)
[2020-04-05] MEDS: SERTRALINE 50 MG TABLET PO SCH (20:48)
[2020-04-05] MEDS: ATORVASTATIN 40 MG TABLET PO SCH (20:48)
[2020-04-05] MEDS: carvediloL 25 MG TABLET PO SCH (20:48)
[2020-04-05] MEDS: PANTOPRAZOLE 40 MG TABLET PO SCH (20:49)
[2020-04-06] MEDS: ALBUTEROL/IPRATROPIUM 3 ML NEB RESP TX SCH ×4 (01:15→19:08)
[2020-04-06] MEDS: SODIUM CHLORIDE 0.45% 1,000 ML IV SCH (04:41)
[2020-04-06 06:21] LABS: Basophils % 0.6 % (0.0-0.8); Eosinophils # 0.4 10*3/uL (0.0-0.87); Eosinophils % 7.5 % (0.00-10.9); Hematocrit 22.9 VOL% (42.0-52.0); Hemoglobin 7.3 GM/DL (14.0-18.0); Immature Granulocytes % 0.4 %; Immature Granulocytes Absolute 0.02 #; Lymphocytes % 20.3 % (21.2-54.2); Mean Corpuscular HGB Conc 31.9 GM/DL (32-36); Mean Corpuscular Volume 92.7 FL (87-102); Mean Platelet Volume 9.1 FL (9.6-12.0); Monocytes % 8.5 % (1.7-12.7); Neutrophils % 62.7 % (38.7-73.9); Platelet Count 201 T/CUMM (130-400); Red Blood Count 2.47 MC/CUMM (3.8-5.5); Red Cell Distribution Width 15.6 % (9.3-17.3); White Blood Count 4.8 T/CUMM (4-12)
[2020-04-06] MEDS ORDERED: SODIUM CHLORIDE 0.9% 1,000 ML IV PRN (07:23)
[2020-04-06] MEDS ORDERED: FUROSEMIDE 20 MG/2 ML VIAL IV ONE ×2 (07:24→14:00)
[2020-04-06 07:29] LABS: Alanine Aminotransferase < 9 U/L (16-61); Albumin 2.6 G/DL (3.4-5.0); Alkaline Phosphatase 49 U/L (45-117); Aspartate Amino Transferase 17 U/L (0-37); Blood Urea Nitrogen 24 MG/DL (7-18); Calcium 8.8 MG/DL (8.5-10.1); Estimated Glom Filtration Rate 66 ML/MIN; Glucose 84 MG/DL (74-106); Osmolality,Calculated 283.3 MOS/KG (273-304)
[2020-04-06] MEDS: CHOLECALCIFEROL 1,000 UNIT TABLET PO SCH (09:08)
[2020-04-06] MEDS: TAMSULOSIN 0.4 MG CAPSULE PO SCH (09:09)
[2020-04-06] MEDS: carvediloL 25 MG TABLET PO SCH ×2 (09:09→21:00)
[2020-04-06] MEDS: DILTIAZEM CD 240 MG CAPSULE PO SCH (09:09)
[2020-04-06] MEDS: CALCIUM (CARBONATE) 600 MG TABLET PO SCH (09:09)
[2020-04-06] MEDS: MULTIVITAMIN (CENTRUM) TABLET PO SCH (09:09)
[2020-04-06] MEDS: allopurinoL 100 MG TABLET PO SCH (09:10)
[2020-04-06] MEDS: LACTOBACILLUS RHAMNOSUS GG CAPSULE PO SCH ×2 (09:10→20:56)
[2020-04-06] MEDS: DIVALPROEX ER 500 MG TABLET PO SCH (09:10)
[2020-04-06] MEDS: AMIODARONE 200 MG TABLET PO SCH (09:10)
[2020-04-06] MEDS: CETIRIZINE 10 MG TABLET PO SCH (09:10)
[2020-04-06] MEDS: ASCORBIC ACID 500 MG TABLET PO SCH (09:10)
[2020-04-06] MEDS: IRON SUCROSE 200 MG in SODIUM CHLORIDE 0.9% 100 ML IV SCH (09:11)
[2020-04-06] MEDS: ATORVASTATIN 40 MG TABLET PO SCH (20:56)
[2020-04-06] MEDS: cefTRIAXone 1,000 MG in SYRINGE 1 EACH IV SCH (20:57)
[2020-04-06] MEDS: FERROUS SULFATE 325 MG TABLET PO SCH (20:57)
[2020-04-06] MEDS: SERTRALINE 50 MG TABLET PO SCH (20:57)
[2020-04-06] MEDS: PANTOPRAZOLE 40 MG TABLET PO SCH (20:57)
[2020-04-06] MEDS ORDERED: AZITHROMYCIN 250 MG TABLET PO SCH (21:00)
[2020-04-07 05:18] LABS: Basophils % 0.6 % (0.0-0.8); Eosinophils # 0.4 10*3/uL (0.0-0.87); Eosinophils % 5.9 % (0.00-10.9); Hematocrit 29.2 VOL% (42.0-52.0); Hemoglobin 9.5 GM/DL (14.0-18.0); Immature Granulocytes % 0.3 %; Immature Granulocytes Absolute 0.02 #; Lymphocytes % 15.2 % (21.2-54.2); Mean Corpuscular HGB Conc 32.5 GM/DL (32-36); Mean Corpuscular Volume 90.4 FL (87-102); Monocytes % 8.4 % (1.7-12.7); Neutrophils % 69.6 % (38.7-73.9); Platelet Count 210 T/CUMM (130-400); Red Blood Count 3.23 MC/CUMM (3.8-5.5); Red Cell Distribution Width 14.9 % (9.3-17.3); White Blood Count 6.6 T/CUMM (4-12)
[2020-04-07 05:34] LABS: Alanine Aminotransferase 9 U/L (16-61); Albumin 2.8 G/DL (3.4-5.0); Alkaline Phosphatase 51 U/L (45-117); Aspartate Amino Transferase 15 U/L (0-37); Bilirubin,Total < 0.39 MG/DL (0.2-1.0); Blood Urea Nitrogen 20 MG/DL (7-18); Calcium 8.9 MG/DL (8.5-10.1); Estimated Glom Filtration Rate 72 ML/MIN; Glucose 75 MG/DL (74-106); Osmolality,Calculated 280.4 MOS/KG (273-304); Total Protein 6.6 G/DL (6.4-8.3)
[2020-04-07] MEDS: ALBUTEROL/IPRATROPIUM 3 ML NEB RESP TX SCH (07:35)
[2020-04-07] MEDS: MULTIVITAMIN (CENTRUM) TABLET PO SCH (09:03)
[2020-04-07] MEDS: CALCIUM (CARBONATE) 600 MG TABLET PO SCH (09:03)
[2020-04-07] MEDS: ASCORBIC ACID 500 MG TABLET PO SCH (09:03)
[2020-04-07] MEDS: DIVALPROEX ER 500 MG TABLET PO SCH (09:03)
[2020-04-07] MEDS: CHOLECALCIFEROL 1,000 UNIT TABLET PO SCH (09:03)
[2020-04-07] MEDS: DILTIAZEM CD 240 MG CAPSULE PO SCH (09:03)
[2020-04-07] MEDS: CETIRIZINE 10 MG TABLET PO SCH (09:04)
[2020-04-07] MEDS: allopurinoL 100 MG TABLET PO SCH (09:04)
[2020-04-07] MEDS: TAMSULOSIN 0.4 MG CAPSULE PO SCH (09:04)
[2020-04-07] MEDS: LACTOBACILLUS RHAMNOSUS GG CAPSULE PO SCH (09:04)
[2020-04-07] MEDS: carvediloL 25 MG TABLET PO SCH (09:04)
[2020-04-07] MEDS: IRON SUCROSE 200 MG in SODIUM CHLORIDE 0.9% 100 ML IV SCH (09:04)
[2020-04-07] MEDS: AMIODARONE 200 MG TABLET PO SCH (09:04)
[2020-04-07] MEDS: FERROUS SULFATE 325 MG TABLET PO SCH (09:11)
[2020-04-07 13:14] VITALS: BP 130/72
== END 2020-04-07 14:25 | disposition home or self-care (01) | DRG 682 ==
LOC: N.ED 14:03 → SUATTDRO 17:56 → N.EDINP 17:56 → N.TELES 18:31
PROVIDERS: ADMIT Internal Medicine; ATTEND Internal Medicine

== ENCOUNTER 2020-07-18 22:45 | Inpatient (IN) ==
[2020-07-18 23:32] LABS: Basophils % 0.7 % (0.0-0.8); Eosinophils # 0.3 10*3/uL (0.0-0.87); Eosinophils % 5.4 % (0.00-10.9); Hematocrit 19.4 VOL% (42.0-52.0); Immature Granulocytes % 0.4 %; Immature Granulocytes Absolute 0.02 #; Lymphocytes # 1.2 10*3/uL (1.4-4.0); Lymphocytes % 21.7 % (21.2-54.2); Mean Corpuscular HGB Conc 28.4 GM/DL (32-36); Mean Corpuscular Volume 100.5 FL (87-102); Mean Platelet Volume 9.4 FL (9.6-12.0); Neutrophils % 61.8 % (38.7-73.9); Platelet Count 247 T/CUMM (130-400); Red Cell Distribution Width 17.4 % (9.3-17.3); White Blood Count 5.7 T/CUMM (4-12)
[2020-07-18 23:33] LABS: Red Blood Count 1.93 MC/CUMM (3.8-5.5)
[2020-07-18 23:36] LABS: Hemoglobin 5.5 GM/DL (14.0-18.0)
[2020-07-18 23:52] LABS: Alanine Aminotransferase 9 U/L (16-61); Albumin 2.8 G/DL (3.4-5.0); Alkaline Phosphatase 44 U/L (45-117); Aspartate Amino Transferase 11 U/L (0-37); Bilirubin,Total < 0.39 MG/DL (0.2-1.0); Blood Urea Nitrogen 26 MG/DL (7-18); Calcium 8.3 MG/DL (8.5-10.1); Carbon Dioxide 29 MMOL/L (21-32); Estimated Glom Filtration Rate 24 ML/MIN; Glucose 129 MG/DL (74-106); Potassium 4.3 MMOL/L (3.5-5.1); Sodium 143 MMOL/L (136-145); Total Protein 6.3 G/DL (6.4-8.3)
[2020-07-18 23:57] LABS: INR 1.1; PT Patient Result 12.1 SECS (9.8-11.9); Partial Thromboplastin Time 32.3 SECS (23.9-33.8)
[2020-07-19] MEDS ORDERED: SODIUM CHLORIDE 0.9% 1,000 ML IV STA (00:04)
[2020-07-19 01:50] LABS: Hypochromasia 2+; Microcytosis 3+; Platelet Estimate Normal; Polychromasia Few
[2020-07-19] MEDS ORDERED: SODIUM CHLORIDE 0.9% 1,000 ML IV PRN (02:03)
[2020-07-19] MEDS ORDERED: GLUCAGON 1 MG VIAL IM PRN (02:53)
[2020-07-19] MEDS ORDERED: DEXTROSE 50% 25 GM/50 ML VIAL IV PRN (02:53)
[2020-07-19] MEDS ORDERED: ACETAMINOPHEN 325 MG TABLET PO PRN (02:53)
[2020-07-19] MEDS ORDERED: ONDANSETRON 4 MG/2 ML VIAL IV PRN (02:53)
[2020-07-19] MEDS ORDERED: NITROGLYCERIN SL 0.4 MG TABLET SL PRN (03:34)
[2020-07-19] MEDS: PANTOPRAZOLE 40 MG VIAL IV SCH ×2 (08:13→20:21)
[2020-07-19] MEDS: ASCORBIC ACID 500 MG TABLET PO SCH (08:22)
[2020-07-19] MEDS: CALCIUM (CARBONATE) 600 MG TABLET PO SCH (08:22)
[2020-07-19] MEDS: allopurinoL 100 MG TABLET PO SCH (08:22)
[2020-07-19] MEDS: AMIODARONE 200 MG TABLET PO SCH (08:22)
[2020-07-19] MEDS: DILTIAZEM CD 180 MG CAPSULE PO SCH (08:22)
[2020-07-19] MEDS: TAMSULOSIN 0.4 MG CAPSULE PO SCH (08:22)
[2020-07-19] MEDS: CHOLECALCIFEROL 1,000 UNIT TABLET PO SCH (08:22)
[2020-07-19] MEDS: DIVALPROEX ER 500 MG TABLET PO SCH (08:23)
[2020-07-19] MEDS: MULTIVITAMIN (CENTRUM) TABLET PO SCH (08:23)
[2020-07-19] MEDS: carvediloL 25 MG TABLET PO SCH ×2 (08:23→16:52)
[2020-07-19] MEDS: CETIRIZINE 10 MG TABLET PO SCH (08:45)
[2020-07-19 09:41] LABS: Basophils % 0.5 % (0.0-0.8); Eosinophils # 0.4 10*3/uL (0.0-0.87); Hematocrit 24.1 VOL% (42.0-52.0); Hemoglobin 7.3 GM/DL (14.0-18.0); Immature Granulocytes % 0.3 %; Immature Granulocytes Absolute 0.02 #; Lymphocytes % 17.7 % (21.2-54.2); Mean Corpuscular HGB Conc 30.3 GM/DL (32-36); Mean Corpuscular Volume 96.8 FL (87-102); Mean Platelet Volume 8.9 FL (9.6-12.0); Monocytes % 9.1 % (1.7-12.7); Neutrophils % 66.4 % (38.7-73.9); Platelet Count 203 T/CUMM (130-400); Red Blood Count 2.49 MC/CUMM (3.8-5.5); White Blood Count 5.8 T/CUMM (4-12)
[2020-07-19 09:41] LABS: Hemoglobin 7.2 GM/DL (14.0-18.0)
[2020-07-19 10:12] LABS: Alanine Aminotransferase 9 U/L (16-61); Albumin 2.7 G/DL (3.4-5.0); Alkaline Phosphatase 39 U/L (45-117); Aspartate Amino Transferase 10 U/L (0-37); Bilirubin,Total < 0.39 MG/DL (0.2-1.0); Blood Urea Nitrogen 24 MG/DL (7-18); Carbon Dioxide 29 MMOL/L (21-32); Estimated Glom Filtration Rate 30 ML/MIN; Glucose 114 MG/DL (74-106); Osmolality,Calculated 287.1 MOS/KG (273-304); Potassium 4.2 MMOL/L (3.5-5.1); Sodium 142 MMOL/L (136-145); Total Protein 5.9 G/DL (6.4-8.3)
[2020-07-19 10:13] LABS: % Iron Saturation 8.8 % (18-50); Ferritin 40.5 ng/ml (26-388)
[2020-07-19] MEDS ORDERED: IRON SUCROSE 300 MG in SODIUM CHLORIDE 0.9% 100 ML IV ONE (12:00)
[2020-07-19 15:06] LABS: Hematocrit 22.5 VOL% (42.0-52.0)
[2020-07-19] MEDS: ATORVASTATIN 40 MG TABLET PO SCH (20:22)
[2020-07-19] MEDS: SERTRALINE 50 MG TABLET PO SCH (20:22)
[2020-07-20 06:06] LABS: Basophils # 0.1 10*3/uL (0.0-0.2); Basophils % 0.9 % (0.0-0.8); Eosinophils # 0.4 10*3/uL (0.0-0.87); Eosinophils % 6.6 % (0.00-10.9); Hematocrit 23.5 VOL% (42.0-52.0); Hemoglobin 7.5 GM/DL (14.0-18.0); Immature Granulocytes % 0.2 %; Immature Granulocytes Absolute 0.01 #; Lymphocytes # 0.8 10*3/uL (1.4-4.0); Lymphocytes % 15.7 % (21.2-54.2); Mean Corpuscular HGB Conc 31.9 GM/DL (32-36); Mean Platelet Volume 9.4 FL (9.6-12.0); Monocytes % 11.8 % (1.7-12.7); Neutrophils % 64.8 % (38.7-73.9); Platelet Count 222 T/CUMM (130-400); Red Cell Distribution Width 15.9 % (9.3-17.3); White Blood Count 5.3 T/CUMM (4-12)
[2020-07-20 06:30] LABS: Albumin 2.7 G/DL (3.4-5.0); Bilirubin,Total 0.9 MG/DL (0.2-1.0); Calcium 8.7 MG/DL (8.5-10.1); Osmolality,Calculated 279.4 MOS/KG (273-304); Potassium 4.2 MMOL/L (3.5-5.1); Total Protein 6.1 G/DL (6.4-8.3)
[2020-07-20] MEDS: DILTIAZEM CD 180 MG CAPSULE PO SCH (08:39)
[2020-07-20] MEDS: CETIRIZINE 10 MG TABLET PO SCH (08:40)
[2020-07-20] MEDS: carvediloL 25 MG TABLET PO SCH ×2 (08:40→17:48)
[2020-07-20] MEDS: CHOLECALCIFEROL 1,000 UNIT TABLET PO SCH (08:40)
[2020-07-20] MEDS: DIVALPROEX ER 500 MG TABLET PO SCH (08:40)
[2020-07-20] MEDS: MULTIVITAMIN (CENTRUM) TABLET PO SCH (08:40)
[2020-07-20] MEDS: TAMSULOSIN 0.4 MG CAPSULE PO SCH (08:40)
[2020-07-20] MEDS: ASCORBIC ACID 500 MG TABLET PO SCH (08:40)
[2020-07-20] MEDS: AMIODARONE 200 MG TABLET PO SCH (08:40)
[2020-07-20] MEDS: CALCIUM (CARBONATE) 600 MG TABLET PO SCH (08:40)
[2020-07-20] MEDS: allopurinoL 100 MG TABLET PO SCH (08:40)
[2020-07-20] MEDS: PANTOPRAZOLE 40 MG VIAL IV SCH ×2 (08:43→20:59)
[2020-07-20] MEDS: FUROSEMIDE 20 MG TABLET PO SCH (13:54)
[2020-07-20 14:10] LABS: Hematocrit 26.2 VOL% (42.0-52.0); Hemoglobin 7.9 GM/DL (14.0-18.0)
[2020-07-20] MEDS: INSULIN REGULAR 100 UNIT/ML SUBCUT SCH ×2 (16:27→21:56)
[2020-07-20] MEDS: ATORVASTATIN 40 MG TABLET PO SCH (20:59)
[2020-07-20] MEDS: SERTRALINE 50 MG TABLET PO SCH (20:59)
[2020-07-21 06:10] LABS: Basophils % 0.8 % (0.0-0.8); Eosinophils # 0.4 10*3/uL (0.0-0.87); Eosinophils % 7.5 % (0.00-10.9); Hematocrit 25.9 VOL% (42.0-52.0); Immature Granulocytes % 0.2 %; Immature Granulocytes Absolute 0.01 #; Lymphocytes % 18.8 % (21.2-54.2); Mean Corpuscular HGB Conc 30.9 GM/DL (32-36); Mean Corpuscular Volume 95.6 FL (87-102); Mean Platelet Volume 9.4 FL (9.6-12.0); Monocytes % 11.1 % (1.7-12.7); Neutrophils % 61.6 % (38.7-73.9); Platelet Count 227 T/CUMM (130-400); Red Blood Count 2.71 MC/CUMM (3.8-5.5); Red Cell Distribution Width 15.7 % (9.3-17.3); White Blood Count 5.1 T/CUMM (4-12)
[2020-07-21] MEDS: ASCORBIC ACID 500 MG TABLET PO SCH (08:00)
[2020-07-21] MEDS: MULTIVITAMIN (CENTRUM) TABLET PO SCH (08:00)
[2020-07-21] MEDS: DILTIAZEM CD 180 MG CAPSULE PO SCH (08:00)
[2020-07-21] MEDS: allopurinoL 100 MG TABLET PO SCH (08:00)
[2020-07-21] MEDS: CALCIUM (CARBONATE) 600 MG TABLET PO SCH (08:00)
[2020-07-21] MEDS: CHOLECALCIFEROL 1,000 UNIT TABLET PO SCH (08:00)
[2020-07-21] MEDS: AMIODARONE 200 MG TABLET PO SCH (08:00)
[2020-07-21] MEDS: FUROSEMIDE 20 MG TABLET PO SCH (08:00)
[2020-07-21] MEDS: TAMSULOSIN 0.4 MG CAPSULE PO SCH (08:00)
[2020-07-21] MEDS: CETIRIZINE 10 MG TABLET PO SCH (08:00)
[2020-07-21] MEDS: DIVALPROEX ER 500 MG TABLET PO SCH (08:00)
[2020-07-21] MEDS: carvediloL 25 MG TABLET PO SCH (08:00)
[2020-07-21] MEDS: INSULIN REGULAR 100 UNIT/ML SUBCUT SCH ×2 (08:59→14:54)
[2020-07-21] MEDS ORDERED: LIDOCAINE 2% 5 ML VIAL ONE (12:17)
[2020-07-21] MEDS ORDERED: propofoL 200 MG/20 ML VIAL IV ONE (12:17)
[2020-07-21] MEDS ORDERED: PHENYLEPHRINE 1 MG/10 ML SYRINGE IV ONE (12:26)
[2020-07-21 14:19] VITALS: BP 148/71
== END 2020-07-21 15:51 | disposition home or self-care (01) | DRG 813 ==
LOC: N.ED 22:45 → SUATTDRO 07-19 01:57 → N.EDINP 07-19 01:57 → N.4E 07-19 03:11
PROVIDERS: ADMIT Internal Medicine; ATTEND Internal Medicine

== ENCOUNTER 2020-10-07 18:14 | Observation (INO) ==
[2020-10-07 18:45] LABS: Basophils % 0.5 % (0.0-0.8); Eosinophils # 0.3 10*3/uL (0.0-0.87); Eosinophils % 4.4 % (0.00-10.9); Hematocrit 24.1 VOL% (42.0-52.0); Hemoglobin 7.2 GM/DL (14.0-18.0); Immature Granulocytes % 0.4 %; Immature Granulocytes Absolute 0.02 #; Lymphocytes # 0.9 10*3/uL (1.4-4.0); Lymphocytes % 16.3 % (21.2-54.2); Mean Corpuscular HGB Conc 29.9 GM/DL (32-36); Mean Corpuscular Volume 92.7 FL (87-102); Mean Platelet Volume 8.9 FL (9.6-12.0); Monocytes % 8.3 % (1.7-12.7); Neutrophils % 70.1 % (38.7-73.9); Platelet Count 243 T/CUMM (130-400); Red Cell Distribution Width 16.5 % (9.3-17.3); White Blood Count 5.7 T/CUMM (4-12)
[2020-10-07 18:58] LABS: INR 1.7; PT Patient Result 18.8 SECS (10.5-12.0); Partial Thromboplastin Time 39.1 SECS (23.9-33.8)
[2020-10-07 19:07] LABS: Alanine Aminotransferase 16 U/L (16-61); Albumin 3.3 G/DL (3.4-5.0); Alkaline Phosphatase 51 U/L (45-117); Aspartate Amino Transferase 27 U/L (0-37); Bilirubin,Total < 0.39 MG/DL (0.2-1.0); Blood Urea Nitrogen 28 MG/DL (7-18); Calcium 10.2 MG/DL (8.5-10.1); Carbon Dioxide 26 MMOL/L (21-32); Estimated Glom Filtration Rate 37 ML/MIN; Glucose 109 MG/DL (74-106); Osmolality,Calculated 281.7 MOS/KG (273-304); Potassium 4.1 MMOL/L (3.5-5.1); Sodium 138 MMOL/L (136-145)
[2020-10-07] MEDS ORDERED: SODIUM CHLORIDE 0.9% 1,000 ML IV STA (20:21)
[2020-10-07] MEDS ORDERED: GLUCAGON 1 MG VIAL IM PRN (22:03)
[2020-10-07] MEDS ORDERED: ACETAMINOPHEN 325 MG TABLET PO PRN (22:03)
[2020-10-07] MEDS ORDERED: SODIUM CHLORIDE 0.9% 1,000 ML IV PRN (22:03)
[2020-10-07] MEDS ORDERED: DEXTROSE 50% 25 GM/50 ML VIAL IV PRN (22:03)
[2020-10-07 22:27] LABS: Bilirubin,Urine Negative (Negative); Blood, Urine Negative (Negative); Glucose,Urine (UA) Negative (Negative); Hyaline Casts,Urine 49 /LPF (0-3); Ketones,Urine Negative (Negative); Mucus,Urine Occasional /LPF (Occasional); Nitrite,Urine Negative (Negative); Protein,Urine Negative; RBC,Urine 2 /HPF (0-4); Squamous Epithelial Cell,Urine Occasional /HPF (0-10); Urine Appearance Slightly Hazy (Clear); Urine Color Yellow (Yellow); Urine Specific Gravity 1.017 (1.001-1.035); Urine Urobilinogen < 2.0 EU/DL (0.2-1.0)
[2020-10-08 07:47] LABS: Basophils % 0.5 % (0.0-0.8); Eosinophils # 0.4 10*3/uL (0.0-0.87); Eosinophils % 6.1 % (0.00-10.9); Hematocrit 26.4 VOL% (42.0-52.0); Hemoglobin 8.3 GM/DL (14.0-18.0); Immature Granulocytes % 0.3 %; Immature Granulocytes Absolute 0.02 #; Lymphocytes # 0.9 10*3/uL (1.4-4.0); Lymphocytes % 14.5 % (21.2-54.2); Mean Corpuscular HGB Conc 31.4 GM/DL (32-36); Mean Corpuscular Volume 90.1 FL (87-102); Mean Platelet Volume 8.9 FL (9.6-12.0); Monocytes % 7.6 % (1.7-12.7); Platelet Count 203 T/CUMM (130-400); Red Blood Count 2.93 MC/CUMM (3.8-5.5); Red Cell Distribution Width 15.9 % (9.3-17.3); White Blood Count 5.9 T/CUMM (4-12)
[2020-10-08 07:58] LABS: Albumin 2.9 G/DL (3.4-5.0); Bilirubin,Total 0.5 MG/DL (0.2-1.0); Calcium 9.6 MG/DL (8.5-10.1); Potassium 4.2 MMOL/L (3.5-5.1); Total Protein 5.9 G/DL (6.4-8.2)
[2020-10-08] MEDS ORDERED: PANTOPRAZOLE 40 MG TABLET PO SCH (09:00)
[2020-10-08] MEDS ORDERED: ALBUTEROL 2.5 MG/3 ML NEB RESP TX PRN (11:00)
[2020-10-08] MEDS ORDERED: BISACODYL 5 MG TABLET PO ONE (12:00)
[2020-10-08] MEDS: MAGNESIUM OXIDE 400 MG TABLET PO SCH (12:36)
[2020-10-08] MEDS: PANTOPRAZOLE 40 MG VIAL IV SCH ×2 (12:36→21:06)
[2020-10-08] MEDS: ASCORBIC ACID 500 MG TABLET PO SCH (12:36)
[2020-10-08] MEDS: TAMSULOSIN 0.4 MG CAPSULE PO SCH (12:36)
[2020-10-08] MEDS: AMIODARONE 200 MG TABLET PO SCH (12:37)
[2020-10-08] MEDS: AMITRIPTYLINE 25 MG TABLET PO SCH (12:37)
[2020-10-08] MEDS: CHOLECALCIFEROL 1,000 UNIT TABLET PO SCH (12:37)
[2020-10-08] MEDS: DILTIAZEM CD 180 MG CAPSULE PO SCH (12:37)
[2020-10-08] MEDS: DIVALPROEX ER 500 MG TABLET PO SCH (12:37)
[2020-10-08] MEDS: CALCIUM (CARBONATE) 600 MG TABLET PO SCH (12:37)
[2020-10-08] MEDS: FUROSEMIDE 20 MG TABLET PO SCH (12:38)
[2020-10-08] MEDS: FERROUS SULFATE 325 MG TABLET PO SCH ×2 (12:38→19:06)
[2020-10-08] MEDS: carvediloL 25 MG TABLET PO SCH ×2 (12:38→21:06)
[2020-10-08] MEDS: MULTIVITAMIN (CENTRUM) TABLET PO SCH (12:38)
[2020-10-08] MEDS: CETIRIZINE 10 MG TABLET PO SCH (12:38)
[2020-10-08] MEDS ORDERED: POLYETHYLENE GLYCOL POWDER 255 GM BOTTLE PO ONE (18:00)
[2020-10-08] MEDS ORDERED: MAGNESIUM CITRATE 300 ML BOTTLE PO ONE (21:00)
[2020-10-08] MEDS: ATORVASTATIN 40 MG TABLET PO SCH (21:06)
[2020-10-08] MEDS: SERTRALINE 50 MG TABLET PO SCH (21:07)
[2020-10-09 05:28] LABS: Basophils % 0.7 % (0.0-0.8); Eosinophils # 0.3 10*3/uL (0.0-0.87); Eosinophils % 5.5 % (0.00-10.9); Hematocrit 27.2 VOL% (42.0-52.0); Hemoglobin 8.5 GM/DL (14.0-18.0); Immature Granulocytes % 0.3 %; Immature Granulocytes Absolute 0.02 #; Lymphocytes # 1.1 10*3/uL (1.4-4.0); Lymphocytes % 18.1 % (21.2-54.2); Mean Corpuscular HGB Conc 31.3 GM/DL (32-36); Mean Corpuscular Volume 89.5 FL (87-102); Mean Platelet Volume 8.9 FL (9.6-12.0); Monocytes % 8.2 % (1.7-12.7); Neutrophils % 67.2 % (38.7-73.9); Platelet Count 215 T/CUMM (130-400); Red Blood Count 3.04 MC/CUMM (3.8-5.5); Red Cell Distribution Width 15.5 % (9.3-17.3)
[2020-10-09 05:36] LABS: PT Patient Result 11.5 SECS (10.5-12.0)
[2020-10-09 05:44] LABS: Calcium 9.9 MG/DL (8.5-10.1); Osmolality,Calculated 279.4 MOS/KG (273-304); Potassium 3.6 MMOL/L (3.5-5.1)
[2020-10-09] MEDS: LACTATED RINGERS 1,000 ML IV SCH (11:08)
[2020-10-09] MEDS ORDERED: propofoL 200 MG/20 ML VIAL IV ONE ×2 (11:27→11:49)
[2020-10-09] MEDS ORDERED: LIDOCAINE 2% 5 ML VIAL ONE (11:27)
[2020-10-09] MEDS: PANTOPRAZOLE 40 MG VIAL IV SCH ×2 (13:58→20:56)
[2020-10-09] MEDS: FERROUS SULFATE 325 MG TABLET PO SCH ×2 (13:59→18:34)
[2020-10-09] MEDS: CHOLECALCIFEROL 1,000 UNIT TABLET PO SCH (13:59)
[2020-10-09] MEDS: MULTIVITAMIN (CENTRUM) TABLET PO SCH (13:59)
[2020-10-09] MEDS: AMIODARONE 200 MG TABLET PO SCH (13:59)
[2020-10-09] MEDS: TAMSULOSIN 0.4 MG CAPSULE PO SCH (14:00)
[2020-10-09] MEDS: carvediloL 25 MG TABLET PO SCH ×2 (14:00→20:56)
[2020-10-09] MEDS: MAGNESIUM OXIDE 400 MG TABLET PO SCH (14:00)
[2020-10-09] MEDS: CALCIUM (CARBONATE) 600 MG TABLET PO SCH (14:00)
[2020-10-09] MEDS: DILTIAZEM CD 180 MG CAPSULE PO SCH (14:00)
[2020-10-09] MEDS: ASCORBIC ACID 500 MG TABLET PO SCH (14:01)
[2020-10-09] MEDS: CETIRIZINE 10 MG TABLET PO SCH (14:01)
[2020-10-09] MEDS: AMITRIPTYLINE 25 MG TABLET PO SCH (14:01)
[2020-10-09] MEDS: FUROSEMIDE 20 MG TABLET PO SCH (14:01)
[2020-10-09] MEDS: DIVALPROEX ER 500 MG TABLET PO SCH (14:01)
[2020-10-09] MEDS: ATORVASTATIN 40 MG TABLET PO SCH (20:56)
[2020-10-09] MEDS: SERTRALINE 50 MG TABLET PO SCH (20:56)
[2020-10-10 05:26] LABS: Basophils % 0.8 % (0.0-0.8); Eosinophils # 0.4 10*3/uL (0.0-0.87); Eosinophils % 6.9 % (0.00-10.9); Hematocrit 26.7 VOL% (42.0-52.0); Hemoglobin 8.5 GM/DL (14.0-18.0); Immature Granulocytes % 0.2 %; Immature Granulocytes Absolute 0.01 #; Lymphocytes # 0.9 10*3/uL (1.4-4.0); Lymphocytes % 18.7 % (21.2-54.2); Mean Corpuscular HGB Conc 31.8 GM/DL (32-36); Mean Corpuscular Volume 88.1 FL (87-102); Mean Platelet Volume 8.9 FL (9.6-12.0); Monocytes % 10.7 % (1.7-12.7); Neutrophils % 62.7 % (38.7-73.9); Platelet Count 208 T/CUMM (130-400); Red Blood Count 3.03 MC/CUMM (3.8-5.5); Red Cell Distribution Width 15.7 % (9.3-17.3)
[2020-10-10 05:42] LABS: Calcium 9.9 MG/DL (8.5-10.1); Osmolality,Calculated 276.5 MOS/KG (273-304); Potassium 3.7 MMOL/L (3.5-5.1)
[2020-10-10] MEDS: LACTATED RINGERS 1,000 ML IV SCH (09:58)
[2020-10-10] MEDS ORDERED: propofoL 200 MG/20 ML VIAL IV ONE (11:25)
[2020-10-10] MEDS ORDERED: LIDOCAINE 2% 5 ML VIAL ONE (11:25)
[2020-10-10] MEDS: carvediloL 25 MG TABLET PO SCH (12:47)
[2020-10-10] MEDS: DILTIAZEM CD 180 MG CAPSULE PO SCH (12:47)
[2020-10-10] MEDS: CALCIUM (CARBONATE) 600 MG TABLET PO SCH (12:47)
[2020-10-10] MEDS: CHOLECALCIFEROL 1,000 UNIT TABLET PO SCH (12:47)
[2020-10-10] MEDS: TAMSULOSIN 0.4 MG CAPSULE PO SCH (12:48)
[2020-10-10] MEDS: MULTIVITAMIN (CENTRUM) TABLET PO SCH (12:48)
[2020-10-10] MEDS: FERROUS SULFATE 325 MG TABLET PO SCH (12:48)
[2020-10-10] MEDS: CETIRIZINE 10 MG TABLET PO SCH (12:48)
[2020-10-10] MEDS: DIVALPROEX ER 500 MG TABLET PO SCH (12:48)
[2020-10-10] MEDS: MAGNESIUM OXIDE 400 MG TABLET PO SCH (12:48)
[2020-10-10] MEDS: AMITRIPTYLINE 25 MG TABLET PO SCH (12:48)
[2020-10-10] MEDS: AMIODARONE 200 MG TABLET PO SCH (12:48)
[2020-10-10] MEDS: FUROSEMIDE 20 MG TABLET PO SCH (12:49)
[2020-10-10] MEDS: ASCORBIC ACID 500 MG TABLET PO SCH (12:49)
[2020-10-10] MEDS: PANTOPRAZOLE 40 MG VIAL IV SCH (12:55)
[2020-10-10 13:03] VITALS: BP 126/83
== END 2020-10-10 15:55 | disposition home or self-care (01) ==
LOC: N.ED 18:14 → INTOOBSV 23:03 → N.EDINP 23:03 → N.4E 10-08 00:15
PROVIDERS: ADMIT Family Medicine; ATTEND Family Medicine

== ENCOUNTER 2020-11-15 22:27 | Inpatient (IN) ==
[2020-11-15 23:09] LABS: Basophils # 0.1 10*3/uL (0.0-0.2); Basophils % 1.1 % (0.0-0.8); Eosinophils # 0.5 10*3/uL (0.0-0.87); Eosinophils % 7.6 % (0.00-10.9); Hematocrit 32.3 VOL% (42.0-52.0); Hemoglobin 9.9 GM/DL (14.0-18.0); Immature Granulocytes % 0.3 %; Immature Granulocytes Absolute 0.02 #; Lymphocytes # 1.4 10*3/uL (1.4-4.0); Lymphocytes % 21.5 % (21.2-54.2); Mean Corpuscular HGB Conc 30.7 GM/DL (32-36); Mean Corpuscular Volume 89.5 FL (87-102); Mean Platelet Volume 8.9 FL (9.6-12.0); Monocytes % 9.7 % (1.7-12.7); Neutrophils % 59.8 % (38.7-73.9); Platelet Count 271 T/CUMM (130-400); Red Blood Count 3.61 MC/CUMM (3.8-5.5); Red Cell Distribution Width 15.7 % (9.3-17.3); White Blood Count 6.6 T/CUMM (4-12)
[2020-11-15 23:19] LABS: PT Patient Result 10.9 SECS (10.5-12.0)
[2020-11-15 23:37] LABS: Alanine Aminotransferase 24 U/L (16-61); Albumin 3.8 G/DL (3.4-5.0); Alkaline Phosphatase 81 U/L (45-117); Aspartate Amino Transferase 35 U/L (0-37); Bilirubin,Total < 0.39 MG/DL (0.2-1.0); Blood Urea Nitrogen 33 MG/DL (7-18); Calcium 10.9 MG/DL (8.5-10.1); Carbon Dioxide 30 MMOL/L (21-32); Estimated Glom Filtration Rate 25 ML/MIN; Glucose 76 MG/DL (74-106); Osmolality,Calculated 282.5 MOS/KG (273-304); Potassium 3.9 MMOL/L (3.5-5.1); Sodium 139 MMOL/L (136-145); Total Protein 7.3 G/DL (6.4-8.2)
[2020-11-16] MEDS ORDERED: SODIUM CHLORIDE 0.9% 1,000 ML IV STA (00:05)
[2020-11-16] MEDS ORDERED: VANCOMYCIN INJ 1,000 MG in SODIUM CHLORIDE 0.9% 250 ML IV STA (01:34)
[2020-11-16] MEDS ORDERED: PIPERACILLIN/TAZOBACTAM 3,375 MG in SODIUM CHLORIDE 0.9% 100 ML IV STA (01:34)
[2020-11-16] MEDS ORDERED: MORPHINE 4 MG/1 ML VIAL IV PRN (03:12)
[2020-11-16] MEDS ORDERED: ONDANSETRON 4 MG/2 ML VIAL IV PRN (03:12)
[2020-11-16] MEDS ORDERED: hydrALAZINE 20 MG/1 ML VIAL IV PRN (03:12)
[2020-11-16] MEDS ORDERED: NICOTINE 21 MG/24 HR PATCH TRANSDERM PRN (03:12)
[2020-11-16] MEDS ORDERED: DEXTROSE 50% 25 GM/50 ML VIAL IV PRN (03:12)
[2020-11-16] MEDS ORDERED: GLUCAGON 1 MG VIAL IM PRN (03:12)
[2020-11-16] MEDS: SODIUM CHLORIDE 0.9% 1,000 ML IV SCH ×2 (04:30→14:38)
[2020-11-16 06:10] LABS: Basophils # 0.1 10*3/uL (0.0-0.2); Basophils % 0.7 % (0.0-0.8); Eosinophils # 0.4 10*3/uL (0.0-0.87); Eosinophils % 5.1 % (0.00-10.9); Hematocrit 27.2 VOL% (42.0-52.0); Hemoglobin 8.5 GM/DL (14.0-18.0); Immature Granulocytes % 0.3 %; Immature Granulocytes Absolute 0.02 #; Lymphocytes # 0.9 10*3/uL (1.4-4.0); Lymphocytes % 12.9 % (21.2-54.2); Mean Corpuscular HGB Conc 31.3 GM/DL (32-36); Mean Corpuscular Volume 88.3 FL (87-102); Mean Platelet Volume 10.4 FL (9.6-12.0); Monocytes % 8.1 % (1.7-12.7); Neutrophils % 72.9 % (38.7-73.9); Platelet Count 215 T/CUMM (130-400); Red Blood Count 3.08 MC/CUMM (3.8-5.5); Red Cell Distribution Width 15.6 % (9.3-17.3); White Blood Count 6.9 T/CUMM (4-12)
[2020-11-16 08:41] LABS: Hematocrit 30.5 VOL% (42.0-52.0); Hemoglobin 9.2 GM/DL (14.0-18.0)
[2020-11-16] MEDS ORDERED: LIDOCAINE 1% 20 ML VIAL RESP TX ONE (09:10)
[2020-11-16] MEDS ORDERED: MIDAZOLAM 10 MG/2 ML VIAL ONE (09:22)
[2020-11-16] MEDS ORDERED: MIDAZOLAM 2 MG/2 ML VIAL IV ONE (09:33)
[2020-11-16] MEDS: PIPERACILLIN/TAZOBACTAM 3,375 MG in SODIUM CHLORIDE 0.9% 100 ML IV SCH ×2 (10:03→17:29)
[2020-11-16 13:55] LABS: Hematocrit 28.3 VOL% (42.0-52.0); Hemoglobin 8.6 GM/DL (14.0-18.0)
[2020-11-16 19:47] LABS: Hematocrit 27.2 VOL% (42.0-52.0); Hemoglobin 8.3 GM/DL (14.0-18.0)
[2020-11-17] MEDS: SODIUM CHLORIDE 0.9% 1,000 ML IV SCH ×2 (01:20→11:41)
[2020-11-17] MEDS: PIPERACILLIN/TAZOBACTAM 3,375 MG in SODIUM CHLORIDE 0.9% 100 ML IV SCH ×3 (01:30→18:41)
[2020-11-17] MEDS ORDERED: VANCOMYCIN INJ 1,000 MG in SODIUM CHLORIDE 0.9% 250 ML IV PRN (03:30)
[2020-11-17] MEDS ORDERED: ALBUTEROL/IPRATROPIUM 3 ML NEB RESP TX PRN (04:45)
[2020-11-17 04:49] LABS: Basophils # 0.1 10*3/uL (0.0-0.2); Basophils % 0.7 % (0.0-0.8); Eosinophils # 0.4 10*3/uL (0.0-0.87); Eosinophils % 5.2 % (0.00-10.9); Hematocrit 25.4 VOL% (42.0-52.0); Hemoglobin 7.9 GM/DL (14.0-18.0); Immature Granulocytes % 0.3 %; Immature Granulocytes Absolute 0.02 #; Lymphocytes # 0.9 10*3/uL (1.4-4.0); Lymphocytes % 13.3 % (21.2-54.2); Mean Corpuscular HGB Conc 31.1 GM/DL (32-36); Mean Corpuscular Volume 88.8 FL (87-102); Mean Platelet Volume 8.8 FL (9.6-12.0); Monocytes % 6.9 % (1.7-12.7); Neutrophils % 73.6 % (38.7-73.9); Platelet Count 218 T/CUMM (130-400); Red Blood Count 2.86 MC/CUMM (3.8-5.5); Red Cell Distribution Width 15.3 % (9.3-17.3); White Blood Count 6.7 T/CUMM (4-12)
[2020-11-17 05:06] LABS: Calcium 10.1 MG/DL (8.5-10.1); Osmolality,Calculated 283.3 MOS/KG (273-304); Potassium 3.9 MMOL/L (3.5-5.1)
[2020-11-17] MEDS ORDERED: VANCOMYCIN INJ 1,000 MG in SODIUM CHLORIDE 0.9% 250 ML IV ONE (09:00)
[2020-11-17] MEDS ORDERED: ALBUTEROL 2.5 MG/3 ML NEB RESP TX PRN (17:35)
[2020-11-17] MEDS: carvediloL 25 MG TABLET PO SCH (20:58)
[2020-11-17] MEDS: ATORVASTATIN 40 MG TABLET PO SCH (20:58)
[2020-11-18] MEDS: PIPERACILLIN/TAZOBACTAM 3,375 MG in SODIUM CHLORIDE 0.9% 100 ML IV SCH ×3 (02:05→17:16)
[2020-11-18] MEDS: SODIUM CHLORIDE 0.9% 1,000 ML IV SCH ×4 (02:53→22:47)
[2020-11-18] MEDS: FUROSEMIDE 20 MG TABLET PO SCH (08:11)
[2020-11-18] MEDS: DILTIAZEM CD 180 MG CAPSULE PO SCH (08:11)
[2020-11-18] MEDS: carvediloL 25 MG TABLET PO SCH ×2 (08:11→20:26)
[2020-11-18] MEDS: MULTIVITAMIN (CENTRUM) TABLET PO SCH (08:11)
[2020-11-18] MEDS: CALCIUM (CARBONATE) 500 MG TABLET PO SCH (08:12)
[2020-11-18] MEDS: MAGNESIUM OXIDE 400 MG TABLET PO SCH (08:12)
[2020-11-18] MEDS: ASPIRIN CHEW 81 MG TABLET PO SCH (08:12)
[2020-11-18] MEDS: allopurinoL 100 MG TABLET PO SCH (08:12)
[2020-11-18] MEDS: AMIODARONE 200 MG TABLET PO SCH (08:12)
[2020-11-18] MEDS: ASCORBIC ACID 500 MG TABLET PO SCH (08:12)
[2020-11-18] MEDS: AMITRIPTYLINE 25 MG TABLET PO SCH (08:13)
[2020-11-18] MEDS: CHOLECALCIFEROL 1,000 UNIT TABLET PO SCH (08:13)
[2020-11-18] MEDS: TAMSULOSIN 0.4 MG CAPSULE PO SCH (08:13)
[2020-11-18] MEDS: PANTOPRAZOLE 40 MG TABLET PO SCH (08:13)
[2020-11-18] MEDS: FERROUS SULFATE 325 MG TABLET PO SCH (08:13)
[2020-11-18] MEDS: CETIRIZINE 10 MG TABLET PO SCH (08:19)
[2020-11-18] MEDS: ATORVASTATIN 40 MG TABLET PO SCH (20:26)
[2020-11-19] MEDS: PIPERACILLIN/TAZOBACTAM 3,375 MG in SODIUM CHLORIDE 0.9% 100 ML IV SCH ×3 (02:45→17:10)
[2020-11-19 05:17] LABS: Basophils % 0.7 % (0.0-0.8); Eosinophils # 0.5 10*3/uL (0.0-0.87); Eosinophils % 7.5 % (0.00-10.9); Immature Granulocytes % 0.2 %; Immature Granulocytes Absolute 0.01 #; Lymphocytes % 15.5 % (21.2-54.2); Mean Corpuscular HGB Conc 31.8 GM/DL (32-36); Mean Corpuscular Volume 87.3 FL (87-102); Mean Platelet Volume 9.3 FL (9.6-12.0); Monocytes % 6.5 % (1.7-12.7); Neutrophils % 69.6 % (38.7-73.9); Platelet Count 191 T/CUMM (130-400); Red Blood Count 2.52 MC/CUMM (3.8-5.5); Red Cell Distribution Width 15.7 % (9.3-17.3); White Blood Count 6.1 T/CUMM (4-12)
[2020-11-19 05:39] LABS: Calcium 9.6 MG/DL (8.5-10.1); Osmolality,Calculated 283.1 MOS/KG (273-304); Potassium 3.7 MMOL/L (3.5-5.1)
[2020-11-19] MEDS ORDERED: SODIUM CHLORIDE 0.9% 1,000 ML IV PRN (07:45)
[2020-11-19] MEDS: FERROUS SULFATE 325 MG TABLET PO SCH (09:27)
[2020-11-19] MEDS: CALCIUM (CARBONATE) 500 MG TABLET PO SCH (09:28)
[2020-11-19] MEDS: PANTOPRAZOLE 40 MG TABLET PO SCH (09:28)
[2020-11-19] MEDS: ASPIRIN CHEW 81 MG TABLET PO SCH (09:28)
[2020-11-19] MEDS: MULTIVITAMIN (CENTRUM) TABLET PO SCH (09:28)
[2020-11-19] MEDS: CHOLECALCIFEROL 1,000 UNIT TABLET PO SCH (09:28)
[2020-11-19] MEDS: MAGNESIUM OXIDE 400 MG TABLET PO SCH (09:28)
[2020-11-19] MEDS: ASCORBIC ACID 500 MG TABLET PO SCH (09:28)
[2020-11-19] MEDS: AMITRIPTYLINE 25 MG TABLET PO SCH (09:29)
[2020-11-19] MEDS: allopurinoL 100 MG TABLET PO SCH (09:29)
[2020-11-19] MEDS: AMIODARONE 200 MG TABLET PO SCH (09:29)
[2020-11-19] MEDS: TAMSULOSIN 0.4 MG CAPSULE PO SCH (09:29)
[2020-11-19] MEDS: CETIRIZINE 10 MG TABLET PO SCH (09:29)
[2020-11-19] MEDS: DILTIAZEM CD 180 MG CAPSULE PO SCH (09:29)
[2020-11-19] MEDS: carvediloL 25 MG TABLET PO SCH ×2 (09:29→20:40)
[2020-11-19] MEDS: FUROSEMIDE 20 MG TABLET PO SCH (09:29)
[2020-11-19] MEDS: SODIUM CHLORIDE 0.9% 1,000 ML IV SCH ×2 (10:03→16:56)
[2020-11-19] MEDS: ATORVASTATIN 40 MG TABLET PO SCH (20:40)
[2020-11-20] MEDS: SODIUM CHLORIDE 0.9% 1,000 ML IV SCH (02:17)
[2020-11-20] MEDS: PIPERACILLIN/TAZOBACTAM 3,375 MG in SODIUM CHLORIDE 0.9% 100 ML IV SCH (02:18)
[2020-11-20 06:03] LABS: Basophils # 0.1 10*3/uL (0.0-0.2); Basophils % 0.7 % (0.0-0.8); Eosinophils # 0.5 10*3/uL (0.0-0.87); Eosinophils % 6.9 % (0.00-10.9); Hematocrit 29.6 VOL% (42.0-52.0); Immature Granulocytes % 0.3 %; Immature Granulocytes Absolute 0.02 #; Lymphocytes # 0.7 10*3/uL (1.4-4.0); Lymphocytes % 11.1 % (21.2-54.2); Mean Corpuscular HGB Conc 31.4 GM/DL (32-36); Mean Corpuscular Volume 88.6 FL (87-102); Mean Platelet Volume 9.2 FL (9.6-12.0); Monocytes % 5.5 % (1.7-12.7); Neutrophils % 75.5 % (38.7-73.9); Platelet Count 228 T/CUMM (130-400); Red Cell Distribution Width 15.2 % (9.3-17.3); White Blood Count 6.7 T/CUMM (4-12)
[2020-11-20 06:04] LABS: Red Blood Count 3.34 MC/CUMM (3.8-5.5)
[2020-11-20 06:05] LABS: Hemoglobin 9.3 GM/DL (14.0-18.0)
[2020-11-20 06:14] LABS: Calcium 10.4 MG/DL (8.5-10.1); Osmolality,Calculated 278.3 MOS/KG (273-304); Potassium 3.5 MMOL/L (3.5-5.1)
[2020-11-20 06:23] LABS: Hypochromasia 1+; Microcytosis 1+; Ovalocytes Slight; Platelet Estimate Adequate
[2020-11-20] MEDS ORDERED: PROMETHAZINE 25 MG/1 ML VIAL IM ONE (07:00)
[2020-11-20] MEDS ORDERED: MEPERIDINE 50 MG/1 ML VIAL IM ONE (07:00)
[2020-11-20] MEDS ORDERED: LIDOCAINE 2% 20 ML VIAL RESP TX ONE (07:30)
[2020-11-20] MEDS ORDERED: MIDAZOLAM 2 MG/2 ML VIAL IV ONE (07:30)
[2020-11-20] MEDS ORDERED: LIDOCAINE 2% VISCOUS 100 ML BOTTLE SWISH/SPIT ONE (07:30)
[2020-11-20] MEDS ORDERED: LIDOCAINE 1% 20 ML VIAL MISC INJ ONE (07:30)
[2020-11-20] MEDS: PANTOPRAZOLE 40 MG TABLET PO SCH (10:31)
[2020-11-20] MEDS: FERROUS SULFATE 325 MG TABLET PO SCH (10:31)
[2020-11-20] MEDS: MAGNESIUM OXIDE 400 MG TABLET PO SCH (10:31)
[2020-11-20] MEDS: CALCIUM (CARBONATE) 500 MG TABLET PO SCH (10:32)
[2020-11-20] MEDS: MULTIVITAMIN (CENTRUM) TABLET PO SCH (10:32)
[2020-11-20] MEDS: carvediloL 25 MG TABLET PO SCH ×2 (10:32→21:09)
[2020-11-20] MEDS: DILTIAZEM CD 180 MG CAPSULE PO SCH (10:32)
[2020-11-20] MEDS: FUROSEMIDE 20 MG TABLET PO SCH (10:32)
[2020-11-20] MEDS: TAMSULOSIN 0.4 MG CAPSULE PO SCH (10:32)
[2020-11-20] MEDS: allopurinoL 100 MG TABLET PO SCH (10:32)
[2020-11-20] MEDS: AMIODARONE 200 MG TABLET PO SCH (10:33)
[2020-11-20] MEDS: cefTRIAXone 1,000 MG in SODIUM CHLORIDE 0.9% 100 ML IV SCH (10:33)
[2020-11-20] MEDS: CETIRIZINE 10 MG TABLET PO SCH (10:33)
[2020-11-20] MEDS: AMITRIPTYLINE 25 MG TABLET PO SCH (10:33)
[2020-11-20] MEDS: ASPIRIN CHEW 81 MG TABLET PO SCH (10:33)
[2020-11-20] MEDS: ASCORBIC ACID 500 MG TABLET PO SCH (10:33)
[2020-11-20] MEDS: MAGNESIUM HYDROXIDE SUSP 30 ML UDCUP PO PRN (14:55)
[2020-11-20] MEDS: INSULIN LISPRO 100 UNIT/ML SUBCUT SCH ×2 (16:19→21:10)
[2020-11-20] MEDS: ATORVASTATIN 40 MG TABLET PO SCH (21:09)
[2020-11-21 06:44] LABS: Basophils # 0.1 10*3/uL (0.0-0.2); Basophils % 0.8 % (0.0-0.8); Eosinophils # 0.4 10*3/uL (0.0-0.87); Eosinophils % 6.3 % (0.00-10.9); Hemoglobin 9.2 GM/DL (14.0-18.0); Immature Granulocytes % 0.3 %; Immature Granulocytes Absolute 0.02 #; Lymphocytes # 0.9 10*3/uL (1.4-4.0); Lymphocytes % 14.1 % (21.2-54.2); Mean Corpuscular HGB Conc 32.9 GM/DL (32-36); Mean Corpuscular Volume 86.4 FL (87-102); Mean Platelet Volume 9.6 FL (9.6-12.0); Monocytes % 5.9 % (1.7-12.7); Neutrophils % 72.6 % (38.7-73.9); Platelet Count 224 T/CUMM (130-400); Red Blood Count 3.24 MC/CUMM (3.8-5.5); Red Cell Distribution Width 15.3 % (9.3-17.3); White Blood Count 6.4 T/CUMM (4-12)
[2020-11-21 07:11] LABS: Calcium 10.2 MG/DL (8.5-10.1); Osmolality,Calculated 277.4 MOS/KG (273-304); Potassium 3.7 MMOL/L (3.5-5.1)
[2020-11-21] MEDS: SODIUM CHLORIDE 0.9% 1,000 ML IV SCH (07:15)
[2020-11-21] MEDS: MULTIVITAMIN (CENTRUM) TABLET PO SCH (09:34)
[2020-11-21] MEDS: TAMSULOSIN 0.4 MG CAPSULE PO SCH (09:35)
[2020-11-21] MEDS: FERROUS SULFATE 325 MG TABLET PO SCH (09:35)
[2020-11-21] MEDS: FUROSEMIDE 20 MG TABLET PO SCH (09:35)
[2020-11-21] MEDS: PANTOPRAZOLE 40 MG TABLET PO SCH (09:35)
[2020-11-21] MEDS: AMITRIPTYLINE 25 MG TABLET PO SCH (09:35)
[2020-11-21] MEDS: ASPIRIN CHEW 81 MG TABLET PO SCH (09:35)
[2020-11-21] MEDS: CALCIUM (CARBONATE) 500 MG TABLET PO SCH (09:36)
[2020-11-21] MEDS: carvediloL 25 MG TABLET PO SCH ×2 (09:36→20:30)
[2020-11-21] MEDS: MAGNESIUM OXIDE 400 MG TABLET PO SCH (09:36)
[2020-11-21] MEDS: DILTIAZEM CD 180 MG CAPSULE PO SCH (09:39)
[2020-11-21] MEDS: allopurinoL 100 MG TABLET PO SCH (09:49)
[2020-11-21] MEDS: AMIODARONE 200 MG TABLET PO SCH (09:49)
[2020-11-21] MEDS: CETIRIZINE 10 MG TABLET PO SCH (09:49)
[2020-11-21] MEDS: ASCORBIC ACID 500 MG TABLET PO SCH (09:49)
[2020-11-21] MEDS: INSULIN LISPRO 100 UNIT/ML SUBCUT SCH ×4 (09:59→20:31)
[2020-11-21] MEDS: cefTRIAXone 1,000 MG in SODIUM CHLORIDE 0.9% 100 ML IV SCH (10:55)
[2020-11-21] MEDS: ATORVASTATIN 40 MG TABLET PO SCH (20:30)
[2020-11-22 06:23] LABS: Basophils # 0.1 10*3/uL (0.0-0.2); Basophils % 0.7 % (0.0-0.8); Eosinophils # 0.4 10*3/uL (0.0-0.87); Eosinophils % 5.6 % (0.00-10.9); Hematocrit 29.1 VOL% (42.0-52.0); Hemoglobin 9.1 GM/DL (14.0-18.0); Immature Granulocytes % 0.4 %; Immature Granulocytes Absolute 0.03 #; Lymphocytes % 14.9 % (21.2-54.2); Mean Corpuscular HGB Conc 31.3 GM/DL (32-36); Mean Corpuscular Volume 87.9 FL (87-102); Mean Platelet Volume 9.4 FL (9.6-12.0); Monocytes % 5.1 % (1.7-12.7); Neutrophils % 73.3 % (38.7-73.9); Platelet Count 256 T/CUMM (130-400); Red Blood Count 3.31 MC/CUMM (3.8-5.5); Red Cell Distribution Width 15.1 % (9.3-17.3); White Blood Count 6.8 T/CUMM (4-12)
[2020-11-22 06:41] LABS: Calcium 10.3 MG/DL (8.5-10.1); Osmolality,Calculated 277.4 MOS/KG (273-304); Potassium 3.6 MMOL/L (3.5-5.1)
[2020-11-22] MEDS: TAMSULOSIN 0.4 MG CAPSULE PO SCH (08:55)
[2020-11-22] MEDS: MULTIVITAMIN (CENTRUM) TABLET PO SCH (08:55)
[2020-11-22] MEDS: ASPIRIN CHEW 81 MG TABLET PO SCH (08:55)
[2020-11-22] MEDS: MAGNESIUM OXIDE 400 MG TABLET PO SCH (08:55)
[2020-11-22] MEDS: allopurinoL 100 MG TABLET PO SCH (08:56)
[2020-11-22] MEDS: PANTOPRAZOLE 40 MG TABLET PO SCH (08:56)
[2020-11-22] MEDS: CETIRIZINE 10 MG TABLET PO SCH (08:56)
[2020-11-22] MEDS: FERROUS SULFATE 325 MG TABLET PO SCH (08:56)
[2020-11-22] MEDS: carvediloL 25 MG TABLET PO SCH ×2 (08:56→20:19)
[2020-11-22] MEDS: FUROSEMIDE 20 MG TABLET PO SCH (08:56)
[2020-11-22] MEDS: AMITRIPTYLINE 25 MG TABLET PO SCH (08:56)
[2020-11-22] MEDS: ASCORBIC ACID 500 MG TABLET PO SCH (08:56)
[2020-11-22] MEDS: AMIODARONE 200 MG TABLET PO SCH (08:56)
[2020-11-22] MEDS: DILTIAZEM CD 180 MG CAPSULE PO SCH (08:56)
[2020-11-22] MEDS: INSULIN LISPRO 100 UNIT/ML SUBCUT SCH ×4 (08:59→21:26)
[2020-11-22 09:09] LABS: Anisocytosis 1+; Macrocytosis Slight; Platelet Estimate Normal
[2020-11-22] MEDS: cefTRIAXone 1,000 MG in SODIUM CHLORIDE 0.9% 100 ML IV SCH (12:02)
[2020-11-22] MEDS: ATORVASTATIN 40 MG TABLET PO SCH (20:19)
[2020-11-23 05:50] LABS: Basophils % 0.6 % (0.0-0.8); Eosinophils # 0.3 10*3/uL (0.0-0.87); Hematocrit 29.1 VOL% (42.0-52.0); Hemoglobin 9.4 GM/DL (14.0-18.0); Immature Granulocytes % 0.2 %; Immature Granulocytes Absolute 0.01 #; Lymphocytes # 0.9 10*3/uL (1.4-4.0); Lymphocytes % 13.8 % (21.2-54.2); Mean Corpuscular HGB Conc 32.3 GM/DL (32-36); Mean Corpuscular Volume 86.1 FL (87-102); Mean Platelet Volume 9.2 FL (9.6-12.0); Monocytes % 6.1 % (1.7-12.7); Neutrophils % 74.3 % (38.7-73.9); Platelet Count 257 T/CUMM (130-400); Red Blood Count 3.38 MC/CUMM (3.8-5.5); Red Cell Distribution Width 15.1 % (9.3-17.3); White Blood Count 6.6 T/CUMM (4-12)
[2020-11-23 07:01] LABS: Albumin 2.7 G/DL (3.4-5.0); Bilirubin,Total 1.2 MG/DL (0.2-1.0); Osmolality,Calculated 273.8 MOS/KG (273-304); Potassium 3.9 MMOL/L (3.5-5.1); Total Protein 6.4 G/DL (6.4-8.2)
[2020-11-23] MEDS: TAMSULOSIN 0.4 MG CAPSULE PO SCH (09:44)
[2020-11-23] MEDS: MAGNESIUM OXIDE 400 MG TABLET PO SCH (09:44)
[2020-11-23] MEDS: ASCORBIC ACID 500 MG TABLET PO SCH (09:44)
[2020-11-23] MEDS: allopurinoL 100 MG TABLET PO SCH (09:44)
[2020-11-23] MEDS: ASPIRIN CHEW 81 MG TABLET PO SCH (09:44)
[2020-11-23] MEDS: carvediloL 25 MG TABLET PO SCH ×2 (09:44→20:28)
[2020-11-23] MEDS: DILTIAZEM CD 180 MG CAPSULE PO SCH (09:44)
[2020-11-23] MEDS: MULTIVITAMIN (CENTRUM) TABLET PO SCH (09:44)
[2020-11-23] MEDS: FUROSEMIDE 20 MG TABLET PO SCH (09:44)
[2020-11-23] MEDS: CETIRIZINE 10 MG TABLET PO SCH (09:45)
[2020-11-23] MEDS: AMIODARONE 200 MG TABLET PO SCH (09:45)
[2020-11-23] MEDS: AMITRIPTYLINE 25 MG TABLET PO SCH (09:45)
[2020-11-23] MEDS: FERROUS SULFATE 325 MG TABLET PO SCH (09:45)
[2020-11-23] MEDS: PANTOPRAZOLE 40 MG TABLET PO SCH (09:45)
[2020-11-23] MEDS: cefTRIAXone 1,000 MG in SODIUM CHLORIDE 0.9% 100 ML IV SCH ×2 (09:47→12:42)
[2020-11-23] MEDS: INSULIN LISPRO 100 UNIT/ML SUBCUT SCH ×4 (09:49→20:30)
[2020-11-23] MEDS: ATORVASTATIN 40 MG TABLET PO SCH (20:28)
[2020-11-24 06:36] LABS: Basophils # 0.1 10*3/uL (0.0-0.2); Basophils % 0.9 % (0.0-0.8); Eosinophils # 0.4 10*3/uL (0.0-0.87); Eosinophils % 5.7 % (0.00-10.9); Hematocrit 28.8 VOL% (42.0-52.0); Hemoglobin 9.3 GM/DL (14.0-18.0); Immature Granulocytes % 0.3 %; Immature Granulocytes Absolute 0.02 #; Lymphocytes # 0.9 10*3/uL (1.4-4.0); Lymphocytes % 12.4 % (21.2-54.2); Mean Corpuscular HGB Conc 32.3 GM/DL (32-36); Mean Corpuscular Volume 86.7 FL (87-102); Mean Platelet Volume 9.4 FL (9.6-12.0); Monocytes % 6.6 % (1.7-12.7); Neutrophils % 74.1 % (38.7-73.9); Platelet Count 273 T/CUMM (130-400); Red Blood Count 3.32 MC/CUMM (3.8-5.5)
[2020-11-24 06:42] LABS: Total Protein (Chem) 6.6 G/DL (6.4-8.3)
[2020-11-24 07:07] LABS: Albumin 2.7 G/DL (3.4-5.0); Bilirubin,Total 0.4 MG/DL (0.2-1.0); Calcium 10.7 MG/DL (8.5-10.1); Osmolality,Calculated 277.5 MOS/KG (273-304); Potassium 3.8 MMOL/L (3.5-5.1); Total Protein 6.5 G/DL (6.4-8.2)
[2020-11-24] MEDS: INSULIN LISPRO 100 UNIT/ML SUBCUT SCH ×4 (07:18→20:06)
[2020-11-24 09:59] LABS: Albumin (SPE) 3.8 G/DL (3.2-5.3); Albumin (SPE) Rel % 57.9 %; Alpha 1 (SPE) 0.3 G/DL (0.1-0.4); Alpha 1 (SPE) Rel % 3.9 %; Alpha 2 (SPE) Rel % 15.4 %; Beta (SPE) 0.9 G/DL (0.5-1.1); Gamma (SPE) 0.6 G/DL (0.7-1.7); Gamma (SPE) Rel % 9.8 %
[2020-11-24] MEDS: CETIRIZINE 10 MG TABLET PO SCH (10:13)
[2020-11-24] MEDS: ASPIRIN CHEW 81 MG TABLET PO SCH (10:13)
[2020-11-24] MEDS: PANTOPRAZOLE 40 MG TABLET PO SCH (10:13)
[2020-11-24] MEDS: DILTIAZEM CD 180 MG CAPSULE PO SCH (10:13)
[2020-11-24] MEDS: MULTIVITAMIN (CENTRUM) TABLET PO SCH (10:13)
[2020-11-24] MEDS: allopurinoL 100 MG TABLET PO SCH (10:13)
[2020-11-24] MEDS: FERROUS SULFATE 325 MG TABLET PO SCH (10:13)
[2020-11-24] MEDS: AMIODARONE 200 MG TABLET PO SCH (10:13)
[2020-11-24] MEDS: carvediloL 25 MG TABLET PO SCH ×2 (10:14→20:47)
[2020-11-24] MEDS: AMITRIPTYLINE 25 MG TABLET PO SCH (10:14)
[2020-11-24] MEDS: FUROSEMIDE 20 MG TABLET PO SCH (10:14)
[2020-11-24] MEDS: ASCORBIC ACID 500 MG TABLET PO SCH (10:14)
[2020-11-24] MEDS: TAMSULOSIN 0.4 MG CAPSULE PO SCH (10:14)
[2020-11-24] MEDS: MAGNESIUM OXIDE 400 MG TABLET PO SCH (10:14)
[2020-11-24] MEDS: cefTRIAXone 1,000 MG in SODIUM CHLORIDE 0.9% 100 ML IV SCH (10:18)
[2020-11-24 15:09] LABS: Total Volume,Urine 1400 ML (400-2000)
[2020-11-24 15:20] LABS: Total Protein 24 Hr Ur Result 126 MG/24HR (0-149.1)
[2020-11-24 20:15] LABS: Bilirubin,Urine Negative (Negative); Blood, Urine Negative (Negative); Glucose,Urine (UA) Negative (Negative); Ketones,Urine Negative (Negative); Mucus,Urine Occasional /LPF (Occasional); Nitrite,Urine Negative (Negative); Protein,Urine Negative; RBC,Urine 1 /HPF (0-4); Squamous Epithelial Cell,Urine Occasional /HPF (0-10); Urine Appearance CLEAR (Clear); Urine Color Straw (Yellow); Urine Specific Gravity 1.005 (1.001-1.035); Urine Urobilinogen < 2.0 EU/DL (0.2-1.0)
[2020-11-24] MEDS: ATORVASTATIN 40 MG TABLET PO SCH (20:47)
[2020-11-25] MEDS ORDERED: cefTRIAXone 1,000 MG in SODIUM CHLORIDE 0.9% 100 ML IV ONE (06:00)
[2020-11-25 06:24] LABS: 24 Hr Protein (Bench) 126 MG/24HR (0-149.1)
[2020-11-25 06:36] LABS: Basophils # 0.1 10*3/uL (0.0-0.2); Basophils % 0.9 % (0.0-0.8); Eosinophils # 0.4 10*3/uL (0.0-0.87); Eosinophils % 6.2 % (0.00-10.9); Hematocrit 31.7 VOL% (42.0-52.0); Hemoglobin 9.9 GM/DL (14.0-18.0); Immature Granulocytes % 0.4 %; Immature Granulocytes Absolute 0.03 #; Lymphocytes # 0.9 10*3/uL (1.4-4.0); Lymphocytes % 13.7 % (21.2-54.2); Mean Corpuscular HGB Conc 31.2 GM/DL (32-36); Mean Corpuscular Volume 87.6 FL (87-102); Monocytes % 5.6 % (1.7-12.7); Neutrophils % 73.2 % (38.7-73.9); Platelet Count 303 T/CUMM (130-400); Red Blood Count 3.62 MC/CUMM (3.8-5.5); Red Cell Distribution Width 14.9 % (9.3-17.3); White Blood Count 6.8 T/CUMM (4-12)
[2020-11-25 07:05] LABS: Calcium 11.3 MG/DL (8.5-10.1); Potassium 3.8 MMOL/L (3.5-5.1)
[2020-11-25] MEDS: INSULIN LISPRO 100 UNIT/ML SUBCUT SCH ×4 (07:07→20:44)
[2020-11-25] MEDS: MULTIVITAMIN (CENTRUM) TABLET PO SCH (07:59)
[2020-11-25] MEDS: ASPIRIN CHEW 81 MG TABLET PO SCH (07:59)
[2020-11-25] MEDS: FERROUS SULFATE 325 MG TABLET PO SCH (08:00)
[2020-11-25] MEDS: CETIRIZINE 10 MG TABLET PO SCH (08:01)
[2020-11-25] MEDS: ASCORBIC ACID 500 MG TABLET PO SCH (08:01)
[2020-11-25] MEDS: MAGNESIUM OXIDE 400 MG TABLET PO SCH (08:01)
[2020-11-25] MEDS: PANTOPRAZOLE 40 MG TABLET PO SCH (08:01)
[2020-11-25] MEDS: TAMSULOSIN 0.4 MG CAPSULE PO SCH (08:02)
[2020-11-25] MEDS: AMIODARONE 200 MG TABLET PO SCH (08:02)
[2020-11-25] MEDS: FUROSEMIDE 20 MG TABLET PO SCH (08:02)
[2020-11-25] MEDS: DILTIAZEM CD 180 MG CAPSULE PO SCH (08:02)
[2020-11-25] MEDS: carvediloL 25 MG TABLET PO SCH ×2 (08:02→20:44)
[2020-11-25] MEDS: AMITRIPTYLINE 25 MG TABLET PO SCH (08:02)
[2020-11-25] MEDS: allopurinoL 100 MG TABLET PO SCH (08:03)
[2020-11-25] MEDS ORDERED: LIDOCAINE 2% TOP JELLY 20 ML VIAL INTRAURETH ONE (08:18)
[2020-11-25] MEDS ORDERED: LIDOCAINE 2% 5 ML VIAL ONE (08:23)
[2020-11-25] MEDS ORDERED: fentaNYL 100 MCG/2 ML VIAL ONE (08:23)
[2020-11-25] MEDS ORDERED: propofoL 200 MG/20 ML VIAL IV ONE (08:23)
[2020-11-25] MEDS ORDERED: ROCURONIUM 50 MG/5 ML VIAL IV ONE (08:23)
[2020-11-25] MEDS ORDERED: MIDAZOLAM 2 MG/2 ML VIAL ONE (08:23)
[2020-11-25] MEDS ORDERED: ONDANSETRON 4 MG/2 ML VIAL ONE ×2 (08:23→10:12)
[2020-11-25] MEDS ORDERED: SEVOFLURANE 1 UNIT/15 MINUTE INH ONE ×8 (08:23→10:33)
[2020-11-25] MEDS ORDERED: HEPARIN/NACL 0.9% 2 UNITS/ML 1,000 UNIT/500 ML BAG IV ONE (08:29)
[2020-11-25] MEDS ORDERED: LACTATED RINGERS 1,000 ML IV SCH (08:30)
[2020-11-25] MEDS ORDERED: ROPIVACAINE 0.5% 30 ML VIAL ONE (08:36)
[2020-11-25] MEDS ORDERED: KETOROLAC 10 MG TABLET PO PRN (09:12)
[2020-11-25] MEDS ORDERED: diphenhydrAMINE CAP 25 MG CAPSULE PO PRN (09:12)
[2020-11-25] MEDS ORDERED: ONDANSETRON 4 MG/2 ML VIAL IV PRN (09:12)
[2020-11-25] MEDS ORDERED: diphenhydrAMINE 50 MG/1 ML VIAL IV PRN (09:12)
[2020-11-25] MEDS ORDERED: KETOROLAC 60 MG/2 ML VIAL IM ONE (09:12)
[2020-11-25] MEDS: LACTATED RINGERS 1,000 ML IV SCH (09:39)
[2020-11-25] MEDS ORDERED: DEXAMETHASONE 4 MG/1 ML VIAL ONE ×3 (10:11)
[2020-11-25] MEDS ORDERED: SODIUM CHLORIDE 0.9% 1,000 ML IV PRN ×2 (10:22→10:25)
[2020-11-25] MEDS ORDERED: ePHEDrine 50 MG/ML VIAL ONE (10:26)
[2020-11-25] MEDS ORDERED: LACTATED RINGERS 1,000 ML IV ONE ×2 (10:33→13:01)
[2020-11-25 10:42] LABS: ABG Base Excess 3.7 MMOL/L (-2.5-2.5); ABG HCO3 26.9 MMOL/L (20-26); ABG PCO2 34.5 MM HG (35-48); ABG PH 7.509 (7.35-7.45); ABG PO2 228.6 MM HG (80-95); ABG TCO2 27.9 MMOL/L (23-27); Glucose Heart Surgery 100 MG/DL (74-106); Hemoglobin Heart Surgery 8.7 G/DL (14.0-18.0); Ionized Calcium Arterial 1.37 MMOL/L (1.21-1.46); PCO2 Patient Temp Arterial 34.5 MMHG; PH Patient Temp Arterial 7.509; PO2 Patient Temp Arterial 228.6 MM HG; Patient Temperature 37 CELCIUS; Potassium Heart/CVR 3.8 MMOL/L (3.5-5.1); Sodium Heart/CVR 133 MMOL/L (135-145)
[2020-11-25] MEDS ORDERED: GLYCOPYRROLATE 0.4 MG/2 ML VIAL ONE (13:05)
[2020-11-25 13:29] LABS: Bilirubin,Urine Negative (Negative); Blood, Urine Small mg/dL (Negative); Glucose,Urine (UA) Negative (Negative); Ketones,Urine Negative (Negative); Mucus,Urine Occasional /LPF (Occasional); Nitrite,Urine Negative (Negative); Protein,Urine Negative; RBC,Urine 22 /HPF (0-4); Squamous Epithelial Cell,Urine Occasional /HPF (0-10); Urine Appearance CLEAR (Clear); Urine Color Yellow (Yellow); Urine Specific Gravity 1.012 (1.001-1.035); Urine Urobilinogen < 2.0 EU/DL (0.2-1.0)
[2020-11-25] MEDS: fentaNYL 2 MCG/ROPIV 0.2% EPID 100 ML EPIDURAL SCH (14:19)
[2020-11-25 14:55] LABS: Basophils % 0.2 % (0.0-0.8); Eosinophils % 0.3 % (0.00-10.9); Hematocrit 30.8 VOL% (42.0-52.0); Hemoglobin 10.3 GM/DL (14.0-18.0); Immature Granulocytes % 0.3 %; Immature Granulocytes Absolute 0.03 #; Lymphocytes # 0.5 10*3/uL (1.4-4.0); Lymphocytes % 4.5 % (21.2-54.2); Mean Corpuscular HGB Conc 33.4 GM/DL (32-36); Mean Platelet Volume 9.3 FL (9.6-12.0); Monocytes % 3.1 % (1.7-12.7); Neutrophils % 91.6 % (38.7-73.9); Platelet Count 231 T/CUMM (130-400); Red Blood Count 3.58 MC/CUMM (3.8-5.5); Red Cell Distribution Width 14.8 % (9.3-17.3); White Blood Count 11.9 T/CUMM (4-12)
[2020-11-25] MEDS ORDERED: KETOROLAC 30 MG/1 ML VIAL IV ONE (15:11)
[2020-11-25] MEDS ORDERED: KETOROLAC 30 MG/1 ML VIAL IM PRN (15:13)
[2020-11-25 15:20] LABS: Calcium 9.7 MG/DL (8.5-10.1); Osmolality,Calculated 276.8 MOS/KG (273-304); Potassium 3.8 MMOL/L (3.5-5.1)
[2020-11-25] MEDS: cefTRIAXone 1,000 MG in SODIUM CHLORIDE 0.9% 100 ML IV SCH (15:23)
[2020-11-25] MEDS: DEXT 5% NACL 0.45% KCL 10 MEQ 10 MEQ/1,000 ML BAG IV SCH (16:18)
[2020-11-25 17:08] LABS: Band Neutrophils 2 % (0-10); Lymphocytes 2 % (20-55); Segmented Neutrophils 94 % (50-85); Total Cells Counted 100
[2020-11-25 17:09] LABS: Hypochromasia 1+; Target Cells Slight
[2020-11-25 17:10] LABS: Microcytosis Slight; Platelet Estimate Normal
[2020-11-25] MEDS: ATORVASTATIN 40 MG TABLET PO SCH (21:08)
[2020-11-26] MEDS: DEXT 5% NACL 0.45% KCL 10 MEQ 10 MEQ/1,000 ML BAG IV SCH ×4 (00:01→13:05)
[2020-11-26] MEDS: fentaNYL 2 MCG/ROPIV 0.2% EPID 100 ML EPIDURAL SCH ×4 (00:50→13:51)
[2020-11-26 04:43] LABS: Basophils % 0.1 % (0.0-0.8); Hematocrit 29.6 VOL% (42.0-52.0); Hemoglobin 9.6 GM/DL (14.0-18.0); Immature Granulocytes % 0.5 %; Immature Granulocytes Absolute 0.05 #; Lymphocytes # 0.5 10*3/uL (1.4-4.0); Lymphocytes % 4.9 % (21.2-54.2); Mean Corpuscular HGB Conc 32.4 GM/DL (32-36); Mean Corpuscular Volume 86.5 FL (87-102); Mean Platelet Volume 9.2 FL (9.6-12.0); Monocytes % 5.4 % (1.7-12.7); Neutrophils % 89.1 % (38.7-73.9); Platelet Count 224 T/CUMM (130-400); Red Blood Count 3.42 MC/CUMM (3.8-5.5); Red Cell Distribution Width 15.1 % (9.3-17.3); White Blood Count 10.6 T/CUMM (4-12)
[2020-11-26 04:56] LABS: Calcium 8.6 MG/DL (8.5-10.1); Potassium 4.3 MMOL/L (3.5-5.1)
[2020-11-26 05:14] LABS: Hypochromasia 1+; Lymphocytes 6 % (20-55); Microcytosis 1+; Platelet Estimate Adequate; Segmented Neutrophils 85 % (50-85); Total Cells Counted 100
[2020-11-26] MEDS: INSULIN LISPRO 100 UNIT/ML SUBCUT SCH ×2 (08:56→12:08)
[2020-11-26] MEDS: allopurinoL 100 MG TABLET PO SCH (08:57)
[2020-11-26] MEDS: ASPIRIN CHEW 81 MG TABLET PO SCH (08:57)
[2020-11-26] MEDS: MAGNESIUM OXIDE 400 MG TABLET PO SCH (08:57)
[2020-11-26] MEDS: TAMSULOSIN 0.4 MG CAPSULE PO SCH (08:58)
[2020-11-26] MEDS: ASCORBIC ACID 500 MG TABLET PO SCH (08:58)
[2020-11-26] MEDS: MULTIVITAMIN (CENTRUM) TABLET PO SCH (08:58)
[2020-11-26] MEDS: PANTOPRAZOLE 40 MG TABLET PO SCH (08:58)
[2020-11-26] MEDS: carvediloL 25 MG TABLET PO SCH ×2 (08:58→21:06)
[2020-11-26] MEDS: AMIODARONE 200 MG TABLET PO SCH (09:00)
[2020-11-26] MEDS: DILTIAZEM CD 180 MG CAPSULE PO SCH (09:00)
[2020-11-26] MEDS: AMITRIPTYLINE 25 MG TABLET PO SCH (09:00)
[2020-11-26] MEDS: CETIRIZINE 10 MG TABLET PO SCH (09:01)
[2020-11-26] MEDS: FERROUS SULFATE 325 MG TABLET PO SCH (09:01)
[2020-11-26] MEDS: FUROSEMIDE 20 MG TABLET PO SCH (09:01)
[2020-11-26] MEDS: LACTATED RINGERS 1,000 ML IV SCH (10:33)
[2020-11-26] MEDS: cefTRIAXone 1,000 MG in SODIUM CHLORIDE 0.9% 100 ML IV SCH (12:23)
[2020-11-26] MEDS: ATORVASTATIN 40 MG TABLET PO SCH (21:06)
[2020-11-27] MEDS: fentaNYL 2 MCG/ROPIV 0.2% EPID 100 ML EPIDURAL SCH ×2 (03:53→23:17)
[2020-11-27] MEDS: ASPIRIN CHEW 81 MG TABLET PO SCH (08:05)
[2020-11-27] MEDS: TAMSULOSIN 0.4 MG CAPSULE PO SCH (08:06)
[2020-11-27] MEDS: DILTIAZEM CD 180 MG CAPSULE PO SCH (08:06)
[2020-11-27] MEDS: CETIRIZINE 10 MG TABLET PO SCH (08:06)
[2020-11-27] MEDS: PANTOPRAZOLE 40 MG TABLET PO SCH (08:06)
[2020-11-27] MEDS: FUROSEMIDE 20 MG TABLET PO SCH (08:06)
[2020-11-27] MEDS: AMIODARONE 200 MG TABLET PO SCH (08:06)
[2020-11-27] MEDS: MAGNESIUM OXIDE 400 MG TABLET PO SCH (08:06)
[2020-11-27] MEDS: allopurinoL 100 MG TABLET PO SCH (08:06)
[2020-11-27] MEDS: ASCORBIC ACID 500 MG TABLET PO SCH (08:06)
[2020-11-27] MEDS: MULTIVITAMIN (CENTRUM) TABLET PO SCH (08:06)
[2020-11-27] MEDS: AMITRIPTYLINE 25 MG TABLET PO SCH (08:07)
[2020-11-27] MEDS: carvediloL 25 MG TABLET PO SCH ×2 (08:07→20:25)
[2020-11-27 08:55] LABS: Basophils % 0.2 % (0.0-0.8); Eosinophils % 0.2 % (0.00-10.9); Hematocrit 31.1 VOL% (42.0-52.0); Immature Granulocytes % 0.6 %; Immature Granulocytes Absolute 0.07 #; Lymphocytes # 0.7 10*3/uL (1.4-4.0); Lymphocytes % 5.5 % (21.2-54.2); Mean Corpuscular HGB Conc 32.2 GM/DL (32-36); Mean Corpuscular Volume 87.1 FL (87-102); Mean Platelet Volume 9.3 FL (9.6-12.0); Monocytes % 6.1 % (1.7-12.7); Neutrophils % 87.4 % (38.7-73.9); Platelet Count 244 T/CUMM (130-400); Red Blood Count 3.57 MC/CUMM (3.8-5.5); Red Cell Distribution Width 15.1 % (9.3-17.3); White Blood Count 12.1 T/CUMM (4-12)
[2020-11-27 09:09] LABS: Calcium 8.7 MG/DL (8.5-10.1); Osmolality,Calculated 275.7 MOS/KG (273-304); Potassium 4.4 MMOL/L (3.5-5.1)
[2020-11-27 09:16] LABS: Hypochromasia 1+; Lymphocytes 9 % (20-55); Microcytosis 1+; Platelet Estimate Adequate; Segmented Neutrophils 86 % (50-85); Total Cells Counted 100
[2020-11-27] MEDS: ATORVASTATIN 40 MG TABLET PO SCH (20:25)
[2020-11-27] MEDS: HYDROmorphone 2 MG/1 ML VIAL IV PRN (23:19)
[2020-11-28 05:43] LABS: Basophils # 0.1 10*3/uL (0.0-0.2); Basophils % 0.6 % (0.0-0.8); Eosinophils # 0.2 10*3/uL (0.0-0.87); Eosinophils % 1.7 % (0.00-10.9); Hematocrit 31.7 VOL% (42.0-52.0); Hemoglobin 10.2 GM/DL (14.0-18.0); Immature Granulocytes % 0.5 %; Immature Granulocytes Absolute 0.07 #; Lymphocytes # 0.8 10*3/uL (1.4-4.0); Lymphocytes % 5.5 % (21.2-54.2); Mean Corpuscular HGB Conc 32.2 GM/DL (32-36); Mean Corpuscular Volume 86.1 FL (87-102); Monocytes % 6.7 % (1.7-12.7); Platelet Count 262 T/CUMM (130-400); Red Blood Count 3.68 MC/CUMM (3.8-5.5); Red Cell Distribution Width 15.1 % (9.3-17.3)
[2020-11-28 06:49] LABS: Calcium 9.3 MG/DL (8.5-10.1); Osmolality,Calculated 272.2 MOS/KG (273-304); Potassium 4.6 MMOL/L (3.5-5.1)
[2020-11-28] MEDS: PANTOPRAZOLE 40 MG TABLET PO SCH (09:10)
[2020-11-28] MEDS: FUROSEMIDE 20 MG TABLET PO SCH (09:10)
[2020-11-28] MEDS: ASCORBIC ACID 500 MG TABLET PO SCH (09:10)
[2020-11-28] MEDS: carvediloL 25 MG TABLET PO SCH ×2 (09:10→21:14)
[2020-11-28] MEDS: MULTIVITAMIN (CENTRUM) TABLET PO SCH (09:10)
[2020-11-28] MEDS: ASPIRIN CHEW 81 MG TABLET PO SCH (09:10)
[2020-11-28] MEDS: MAGNESIUM OXIDE 400 MG TABLET PO SCH (09:10)
[2020-11-28] MEDS: DILTIAZEM CD 180 MG CAPSULE PO SCH (09:10)
[2020-11-28] MEDS: TAMSULOSIN 0.4 MG CAPSULE PO SCH (09:10)
[2020-11-28] MEDS: AMIODARONE 200 MG TABLET PO SCH (09:10)
[2020-11-28] MEDS: CETIRIZINE 10 MG TABLET PO SCH (09:10)
[2020-11-28] MEDS: allopurinoL 100 MG TABLET PO SCH (09:10)
[2020-11-28] MEDS: AMITRIPTYLINE 25 MG TABLET PO SCH (09:10)
[2020-11-28] MEDS: HYDROmorphone 2 MG/1 ML VIAL IV PRN ×3 (09:15→18:19)
[2020-11-28] MEDS: fentaNYL 2 MCG/ROPIV 0.2% EPID 100 ML EPIDURAL SCH (10:42)
[2020-11-28] MEDS: MAGNESIUM HYDROXIDE SUSP 30 ML UDCUP PO PRN (12:46)
[2020-11-28] MEDS ORDERED: LACTULOSE 20 GM/30 ML UDCUP PO PRN (13:00)
[2020-11-28] MEDS: POLYETHYLENE GLYCOL POWDER 17 GM PACK PO SCH (14:14)
[2020-11-28] MEDS: ATORVASTATIN 40 MG TABLET PO SCH (21:14)
[2020-11-29 04:22] LABS: Basophils # 0.1 10*3/uL (0.0-0.2); Basophils % 0.3 % (0.0-0.8); Eosinophils # 0.4 10*3/uL (0.0-0.87); Eosinophils % 2.6 % (0.00-10.9); Immature Granulocytes % 0.7 %; Lymphocytes # 0.8 10*3/uL (1.4-4.0); Lymphocytes % 5.4 % (21.2-54.2); Mean Corpuscular Volume 88.7 FL (87-102); Mean Platelet Volume 9.3 FL (9.6-12.0); Monocytes % 6.8 % (1.7-12.7); Neutrophils % 84.2 % (38.7-73.9); Platelet Count 256 T/CUMM (130-400); Red Blood Count 3.27 MC/CUMM (3.8-5.5); Red Cell Distribution Width 15.4 % (9.3-17.3); White Blood Count 14.4 T/CUMM (4-12)
[2020-11-29 04:35] LABS: Calcium 8.8 MG/DL (8.5-10.1); Osmolality,Calculated 276.4 MOS/KG (273-304); Potassium 4.4 MMOL/L (3.5-5.1)
[2020-11-29] MEDS: HYDROmorphone 2 MG/1 ML VIAL IV PRN ×2 (08:36→17:09)
[2020-11-29] MEDS: carvediloL 25 MG TABLET PO SCH ×2 (08:36→21:54)
[2020-11-29] MEDS: MULTIVITAMIN (CENTRUM) TABLET PO SCH (08:36)
[2020-11-29] MEDS: ASPIRIN CHEW 81 MG TABLET PO SCH (08:36)
[2020-11-29] MEDS: AMITRIPTYLINE 25 MG TABLET PO SCH (08:37)
[2020-11-29] MEDS: ASCORBIC ACID 500 MG TABLET PO SCH (08:37)
[2020-11-29] MEDS: PANTOPRAZOLE 40 MG TABLET PO SCH (08:37)
[2020-11-29] MEDS: allopurinoL 100 MG TABLET PO SCH (08:37)
[2020-11-29] MEDS: AMIODARONE 200 MG TABLET PO SCH (08:37)
[2020-11-29] MEDS: MAGNESIUM OXIDE 400 MG TABLET PO SCH (08:37)
[2020-11-29] MEDS: TAMSULOSIN 0.4 MG CAPSULE PO SCH (08:37)
[2020-11-29] MEDS: DILTIAZEM CD 180 MG CAPSULE PO SCH (08:37)
[2020-11-29] MEDS: POLYETHYLENE GLYCOL POWDER 17 GM PACK PO SCH (09:59)
[2020-11-29] MEDS ORDERED: LIDOCAINE 2% TOP JELLY 20 ML VIAL INTRAURETH ONE ×2 (11:03→11:10)
[2020-11-29] MEDS: CETIRIZINE 10 MG TABLET PO SCH (12:35)
[2020-11-29] MEDS: ATORVASTATIN 40 MG TABLET PO SCH (21:53)
[2020-11-30 03:54] LABS: Basophils % 0.2 % (0.0-0.8); Eosinophils # 0.4 10*3/uL (0.0-0.87); Eosinophils % 3.6 % (0.00-10.9); Hemoglobin 8.6 GM/DL (14.0-18.0); Immature Granulocytes % 0.4 %; Immature Granulocytes Absolute 0.04 #; Lymphocytes # 0.6 10*3/uL (1.4-4.0); Lymphocytes % 5.2 % (21.2-54.2); Mean Corpuscular HGB Conc 33.1 GM/DL (32-36); Mean Corpuscular Volume 84.4 FL (87-102); Mean Platelet Volume 9.1 FL (9.6-12.0); Monocytes % 7.7 % (1.7-12.7); NRBC # 0.03 10*3/uL; Neutrophils % 82.9 % (38.7-73.9); Platelet Count 271 T/CUMM (130-400); Red Blood Count 3.08 MC/CUMM (3.8-5.5); Red Cell Distribution Width 15.4 % (9.3-17.3); White Blood Count 11.2 T/CUMM (4-12)
[2020-11-30 04:15] LABS: Osmolality,Calculated 282.1 MOS/KG (273-304); Potassium 4.6 MMOL/L (3.5-5.1)
[2020-11-30] MEDS: POLYETHYLENE GLYCOL POWDER 17 GM PACK PO SCH (09:04)
[2020-11-30] MEDS: PANTOPRAZOLE 40 MG TABLET PO SCH (09:12)
[2020-11-30] MEDS: AMITRIPTYLINE 25 MG TABLET PO SCH (09:13)
[2020-11-30] MEDS: ASPIRIN CHEW 81 MG TABLET PO SCH (09:14)
[2020-11-30] MEDS: CETIRIZINE 10 MG TABLET PO SCH (09:14)
[2020-11-30] MEDS: TAMSULOSIN 0.4 MG CAPSULE PO SCH (09:15)
[2020-11-30] MEDS: carvediloL 25 MG TABLET PO SCH ×2 (09:15→21:38)
[2020-11-30] MEDS: AMIODARONE 200 MG TABLET PO SCH (09:16)
[2020-11-30] MEDS: allopurinoL 100 MG TABLET PO SCH (09:17)
[2020-11-30] MEDS: ASCORBIC ACID 500 MG TABLET PO SCH (09:19)
[2020-11-30] MEDS: MULTIVITAMIN (CENTRUM) TABLET PO SCH (09:19)
[2020-11-30] MEDS: DILTIAZEM CD 180 MG CAPSULE PO SCH (09:20)
[2020-11-30] MEDS: MAGNESIUM OXIDE 400 MG TABLET PO SCH (09:20)
[2020-11-30] MEDS ORDERED: methylPREDNISolone SOD SUC 125 MG/2 ML VIAL IV ONE (09:42)
[2020-11-30] MEDS: methylPREDNISolone SOD SUC 125 MG/2 ML VIAL IV SCH ×2 (10:21→21:38)
[2020-11-30] MEDS: ATORVASTATIN 40 MG TABLET PO SCH (21:38)
[2020-12-01] MEDS ORDERED: methylPREDNISolone SOD SUC 125 MG/2 ML VIAL IV SCH (08:58)
[2020-12-01 09:04] LABS: Basophils % 0.1 % (0.0-0.8); Hematocrit 29.8 VOL% (42.0-52.0); Hemoglobin 9.6 GM/DL (14.0-18.0); Immature Granulocytes % 0.8 %; Lymphocytes # 0.5 10*3/uL (1.4-4.0); Lymphocytes % 3.9 % (21.2-54.2); Mean Corpuscular HGB Conc 32.2 GM/DL (32-36); Mean Corpuscular Volume 84.9 FL (87-102); Mean Platelet Volume 9.3 FL (9.6-12.0); Monocytes % 1.8 % (1.7-12.7); Neutrophils % 93.4 % (38.7-73.9); Platelet Count 345 T/CUMM (130-400); Red Blood Count 3.51 MC/CUMM (3.8-5.5); Red Cell Distribution Width 15.6 % (9.3-17.3); White Blood Count 12.2 T/CUMM (4-12)
[2020-12-01 09:21] LABS: Calcium 9.3 MG/DL (8.5-10.1); Osmolality,Calculated 288.7 MOS/KG (273-304); Potassium 4.5 MMOL/L (3.5-5.1)
[2020-12-01 09:26] LABS: Lymphocytes 2 % (20-55); Segmented Neutrophils 96 % (50-85); Total Cells Counted 100
[2020-12-01 09:27] LABS: Hypochromasia 1+; Microcytosis 1+; Platelet Estimate Adequate
[2020-12-01] MEDS: POLYETHYLENE GLYCOL POWDER 17 GM PACK PO SCH (09:29)
[2020-12-01] MEDS: TAMSULOSIN 0.4 MG CAPSULE PO SCH (09:30)
[2020-12-01] MEDS: methylPREDNISolone SOD SUC 40 MG/1 ML VIAL IV SCH ×2 (09:30→21:21)
[2020-12-01] MEDS: DILTIAZEM CD 180 MG CAPSULE PO SCH (09:30)
[2020-12-01] MEDS: ASPIRIN CHEW 81 MG TABLET PO SCH (09:30)
[2020-12-01] MEDS: AMIODARONE 200 MG TABLET PO SCH (09:31)
[2020-12-01] MEDS: CETIRIZINE 10 MG TABLET PO SCH (09:31)
[2020-12-01] MEDS: allopurinoL 100 MG TABLET PO SCH (09:31)
[2020-12-01] MEDS: ASCORBIC ACID 500 MG TABLET PO SCH (09:31)
[2020-12-01] MEDS: PANTOPRAZOLE 40 MG TABLET PO SCH (09:31)
[2020-12-01] MEDS: carvediloL 25 MG TABLET PO SCH ×2 (09:31→21:16)
[2020-12-01] MEDS: MULTIVITAMIN (CENTRUM) TABLET PO SCH (09:31)
[2020-12-01] MEDS: MAGNESIUM OXIDE 400 MG TABLET PO SCH (09:31)
[2020-12-01] MEDS: ATORVASTATIN 40 MG TABLET PO SCH (21:16)
[2020-12-02 05:07] LABS: Basophils % 0.1 % (0.0-0.8); Hematocrit 27.6 VOL% (42.0-52.0); Hemoglobin 8.9 GM/DL (14.0-18.0); Immature Granulocytes % 0.9 %; Immature Granulocytes Absolute 0.12 #; Lymphocytes # 0.5 10*3/uL (1.4-4.0); Lymphocytes % 3.9 % (21.2-54.2); Mean Corpuscular HGB Conc 32.2 GM/DL (32-36); Mean Corpuscular Volume 84.7 FL (87-102); Mean Platelet Volume 9.2 FL (9.6-12.0); Monocytes % 4.2 % (1.7-12.7); Neutrophils % 90.9 % (38.7-73.9); Platelet Count 352 T/CUMM (130-400); Red Blood Count 3.26 MC/CUMM (3.8-5.5); Red Cell Distribution Width 15.7 % (9.3-17.3); White Blood Count 13.5 T/CUMM (4-12)
[2020-12-02 05:25] LABS: Calcium 9.2 MG/DL (8.5-10.1); Osmolality,Calculated 288.5 MOS/KG (273-304); Potassium 4.8 MMOL/L (3.5-5.1)
[2020-12-02 05:26] LABS: Calcium 9.3 MG/DL (8.5-10.1); Osmolality,Calculated 287.7 MOS/KG (273-304); Potassium 4.8 MMOL/L (3.5-5.1)
[2020-12-02 05:31] LABS: Hypochromasia 1+; Lymphocytes 2 % (20-55); Microcytosis 1+; Ovalocytes Slight; Platelet Estimate Adequate; Segmented Neutrophils 96 % (50-85); Total Cells Counted 100
[2020-12-02] MEDS: POLYETHYLENE GLYCOL POWDER 17 GM PACK PO SCH (08:27)
[2020-12-02] MEDS: ASPIRIN CHEW 81 MG TABLET PO SCH (09:32)
[2020-12-02] MEDS: DILTIAZEM CD 180 MG CAPSULE PO SCH (09:33)
[2020-12-02] MEDS: AMIODARONE 200 MG TABLET PO SCH (09:33)
[2020-12-02] MEDS: MAGNESIUM OXIDE 400 MG TABLET PO SCH (09:33)
[2020-12-02] MEDS: CETIRIZINE 10 MG TABLET PO SCH (09:33)
[2020-12-02] MEDS: ASCORBIC ACID 500 MG TABLET PO SCH (09:33)
[2020-12-02] MEDS: allopurinoL 100 MG TABLET PO SCH (09:33)
[2020-12-02] MEDS: carvediloL 25 MG TABLET PO SCH ×2 (09:33→20:31)
[2020-12-02] MEDS: TAMSULOSIN 0.4 MG CAPSULE PO SCH (09:33)
[2020-12-02] MEDS: PANTOPRAZOLE 40 MG TABLET PO SCH (09:33)
[2020-12-02] MEDS: MULTIVITAMIN (CENTRUM) TABLET PO SCH (09:34)
[2020-12-02] MEDS: methylPREDNISolone SOD SUC 40 MG/1 ML VIAL IV SCH ×2 (09:34→20:31)
[2020-12-02] MEDS: ATORVASTATIN 40 MG TABLET PO SCH (20:31)
[2020-12-03 05:38] LABS: Basophils % 0.2 % (0.0-0.8); Hematocrit 28.8 VOL% (42.0-52.0); Hemoglobin 9.4 GM/DL (14.0-18.0); Immature Granulocytes % 1.7 %; Immature Granulocytes Absolute 0.21 #; Lymphocytes # 0.5 10*3/uL (1.4-4.0); Lymphocytes % 4.1 % (21.2-54.2); Mean Corpuscular HGB Conc 32.6 GM/DL (32-36); Mean Corpuscular Volume 84.5 FL (87-102); Mean Platelet Volume 9.1 FL (9.6-12.0); Monocytes % 5.2 % (1.7-12.7); Neutrophils % 88.8 % (38.7-73.9); Platelet Count 390 T/CUMM (130-400); Red Blood Count 3.41 MC/CUMM (3.8-5.5); Red Cell Distribution Width 15.9 % (9.3-17.3); White Blood Count 12.6 T/CUMM (4-12)
[2020-12-03 06:02] LABS: Calcium 8.8 MG/DL (8.5-10.1); Osmolality,Calculated 291.3 MOS/KG (273-304); Potassium 5.1 MMOL/L (3.5-5.1)
[2020-12-03 06:04] LABS: Hypochromasia 1+; Lymphocytes 8 % (20-55); Segmented Neutrophils 84 % (50-85); Total Cells Counted 100
[2020-12-03 06:05] LABS: Microcytosis 1+; Platelet Estimate Normal; Target Cells Slight
[2020-12-03] MEDS: POLYETHYLENE GLYCOL POWDER 17 GM PACK PO SCH (09:19)
[2020-12-03] MEDS: MAGNESIUM OXIDE 400 MG TABLET PO SCH (09:19)
[2020-12-03] MEDS: ASPIRIN CHEW 81 MG TABLET PO SCH (09:20)
[2020-12-03] MEDS: MULTIVITAMIN (CENTRUM) TABLET PO SCH (09:20)
[2020-12-03] MEDS: PANTOPRAZOLE 40 MG TABLET PO SCH (09:20)
[2020-12-03] MEDS: allopurinoL 100 MG TABLET PO SCH (09:22)
[2020-12-03] MEDS: DILTIAZEM CD 180 MG CAPSULE PO SCH (09:22)
[2020-12-03] MEDS: AMIODARONE 200 MG TABLET PO SCH (09:22)
[2020-12-03] MEDS: ASCORBIC ACID 500 MG TABLET PO SCH (09:22)
[2020-12-03] MEDS: CETIRIZINE 10 MG TABLET PO SCH (09:22)
[2020-12-03] MEDS: TAMSULOSIN 0.4 MG CAPSULE PO SCH (09:22)
[2020-12-03] MEDS: methylPREDNISolone SOD SUC 40 MG/1 ML VIAL IV SCH (09:22)
[2020-12-03] MEDS: carvediloL 25 MG TABLET PO SCH (09:22)
[2020-12-03 15:43] VITALS: BP 134/71
== END 2020-12-03 17:13 | disposition swing bed (61) | DRG 163 ==
LOC: N.ED 22:27 → SUATTDRO 11-16 03:12 → N.EDINP 11-16 03:12 → N.ICU 11-16 04:01 → N.3E 11-17 17:09 → N.ICU 11-25 14:32 → N.4E 11-28 11:55
PROVIDERS: ADMIT Internal Medicine; ATTEND Internal Medicine
PROC: BRONCHB (2020-11-20 07:35)

== ENCOUNTER 2020-12-17 10:56 | Observation (INO) ==
[2020-12-17 12:26] LABS: Basophils # 0.1 10*3/uL (0.0-0.2); Basophils % 1.2 % (0.0-0.8); Eosinophils # 0.2 10*3/uL (0.0-0.87); Eosinophils % 3.5 % (0.00-10.9); Hematocrit 30.5 VOL% (42.0-52.0); Hemoglobin 9.3 GM/DL (14.0-18.0); Immature Granulocytes % 0.4 %; Immature Granulocytes Absolute 0.03 #; Lymphocytes # 0.8 10*3/uL (1.4-4.0); Lymphocytes % 11.8 % (21.2-54.2); Mean Corpuscular HGB Conc 30.5 GM/DL (32-36); Mean Corpuscular Volume 88.2 FL (87-102); Mean Platelet Volume 9.2 FL (9.6-12.0); Monocytes % 9.2 % (1.7-12.7); Neutrophils % 73.9 % (38.7-73.9); Platelet Count 376 T/CUMM (130-400); Red Blood Count 3.46 MC/CUMM (3.8-5.5); Red Cell Distribution Width 16.7 % (9.3-17.3); White Blood Count 6.9 T/CUMM (4-12)
[2020-12-17 12:27] LABS: Alanine Aminotransferase 100 U/L (16-61); Albumin 2.6 G/DL (3.4-5.0); Alkaline Phosphatase 124 U/L (45-117); Aspartate Amino Transferase 130 U/L (0-37); Bilirubin,Total < 0.39 MG/DL (0.20-1.00); Blood Urea Nitrogen 26 MG/DL (7-18); Calcium 8.4 MG/DL (8.5-10.1); Carbon Dioxide 26 MMOL/L (21-32); Estimated Glom Filtration Rate 30 ML/MIN; Glucose 100 MG/DL (74-106); Osmolality,Calculated 285.3 MOS/KG (273-304); Potassium 4.6 MMOL/L (3.5-5.1); Sodium 141 MMOL/L (136-145); Total Protein 6.6 G/DL (6.4-8.2)
[2020-12-17 12:31] LABS: PT Patient Result 11.3 SECS (10.5-12.0)
[2020-12-17] MEDS ORDERED: SODIUM CHLORIDE 0.9% 1,000 ML IV STA (13:58)
[2020-12-17] MEDS ORDERED: DEXTROSE 50% 25 GM/50 ML VIAL IV PRN (15:25)
[2020-12-17] MEDS ORDERED: GLUCAGON 1 MG VIAL IM PRN (15:25)
[2020-12-17] MEDS ORDERED: BISACODYL 5 MG TABLET PO PRN (15:26)
[2020-12-17] MEDS ORDERED: ONDANSETRON 4 MG/2 ML VIAL IV PRN (15:26)
[2020-12-17] MEDS ORDERED: ACETAMINOPHEN 325 MG TABLET PO PRN (15:26)
[2020-12-17] MEDS ORDERED: POLYETHYLENE GLYCOL POWDER 17 GM PACK PO PRN (15:31)
[2020-12-17] MEDS ORDERED: ALBUTEROL 2.5 MG/3 ML NEB RESP TX PRN (15:38)
[2020-12-17 18:41] LABS: Bacteria,Urine Occasional /HPF (Few); Bilirubin,Urine Negative (Negative); Blood, Urine Large mg/dL (Negative); Glucose,Urine (UA) Negative (Negative); Hyaline Casts,Urine 34 /LPF (0-3); Ketones,Urine Negative (Negative); Mucus,Urine Occasional /LPF (Occasional); Nitrite,Urine Negative (Negative); Protein,Urine Negative; RBC,Urine 105 /HPF (0-4); Squamous Epithelial Cell,Urine Occasional /HPF (0-10); Transitional Epi Cells,Urine Occasional /HPF (<1); Urine Appearance Slightly Hazy (Clear); Urine Color Yellow (Yellow); Urine Specific Gravity 1.016 (1.001-1.035); Urine Urobilinogen < 2.0 EU/DL (0.2-1.0)
[2020-12-17] MEDS: INSULIN LISPRO 100 UNIT/ML SUBCUT SCH ×2 (19:02→21:17)
[2020-12-17] MEDS: ENOXAPARIN 30 MG/0.3 ML SYRINGE SUBCUT SCH (19:27)
[2020-12-17] MEDS: SODIUM CHLORIDE 0.9% 1,000 ML IV SCH (19:28)
[2020-12-17] MEDS: NYSTATIN 500,000 UNIT/5 ML UDCUP SWISH/SWAL SCH ×2 (19:28→21:48)
[2020-12-17] MEDS: ATORVASTATIN 40 MG TABLET PO SCH (21:48)
[2020-12-17] MEDS: ACYCLOVIR 200 MG CAPSULE PO SCH (23:12)
[2020-12-18] MEDS: SODIUM CHLORIDE 0.9% 1,000 ML IV SCH ×2 (01:58→14:18)
[2020-12-18 04:09] LABS: Basophils # 0.1 10*3/uL (0.0-0.2); Eosinophils # 0.4 10*3/uL (0.0-0.87); Eosinophils % 6.1 % (0.00-10.9); Hematocrit 26.3 VOL% (42.0-52.0); Hemoglobin 8.1 GM/DL (14.0-18.0); Immature Granulocytes % 0.4 %; Immature Granulocytes Absolute 0.03 #; Lymphocytes % 14.5 % (21.2-54.2); Mean Corpuscular HGB Conc 30.8 GM/DL (32-36); Mean Corpuscular Volume 87.7 FL (87-102); Mean Platelet Volume 8.9 FL (9.6-12.0); Monocytes % 9.5 % (1.7-12.7); Neutrophils % 68.5 % (38.7-73.9); Platelet Count 293 T/CUMM (130-400); Red Cell Distribution Width 16.6 % (9.3-17.3)
[2020-12-18 04:30] LABS: Calcium 8.3 MG/DL (8.5-10.1); Osmolality,Calculated 281.3 MOS/KG (273-304); Potassium 4.5 MMOL/L (3.5-5.1)
[2020-12-18] MEDS: PANTOPRAZOLE 40 MG TABLET PO SCH (08:45)
[2020-12-18] MEDS: TAMSULOSIN 0.4 MG CAPSULE PO SCH (08:45)
[2020-12-18] MEDS: ASPIRIN CHEW 81 MG TABLET PO SCH (08:45)
[2020-12-18] MEDS: CHOLECALCIFEROL 1,000 UNIT TABLET PO SCH (08:45)
[2020-12-18] MEDS: NYSTATIN 500,000 UNIT/5 ML UDCUP SWISH/SWAL SCH ×4 (08:45→22:22)
[2020-12-18] MEDS: CALCIUM (CARBONATE) 500 MG TABLET PO SCH (08:45)
[2020-12-18] MEDS: FERROUS SULFATE 325 MG TABLET PO SCH (08:46)
[2020-12-18] MEDS: ACYCLOVIR 200 MG CAPSULE PO SCH ×3 (08:46→22:22)
[2020-12-18] MEDS: allopurinoL 100 MG TABLET PO SCH (08:46)
[2020-12-18] MEDS: ASCORBIC ACID 500 MG TABLET PO SCH (08:46)
[2020-12-18] MEDS: MULTIVITAMIN (CENTRUM) TABLET PO SCH (08:46)
[2020-12-18] MEDS: INSULIN LISPRO 100 UNIT/ML SUBCUT SCH ×4 (08:47→22:22)
[2020-12-18] MEDS: carvediloL 6.25 MG TABLET PO SCH ×2 (08:54→22:22)
[2020-12-18] MEDS ORDERED: AMIODARONE 200 MG TABLET PO SCH (09:00)
[2020-12-18] MEDS: NON-FORMULARY MEDICATION (Magnesium 250 mg Tablet) PO SCH (09:48)
[2020-12-18] MEDS: ENOXAPARIN 30 MG/0.3 ML SYRINGE SUBCUT SCH (15:55)
[2020-12-18] MEDS: ATORVASTATIN 40 MG TABLET PO SCH (22:22)
[2020-12-19] MEDS: SODIUM CHLORIDE 0.9% 1,000 ML IV SCH (02:03)
[2020-12-19 08:02] LABS: Basophils # 0.1 10*3/uL (0.0-0.2); Basophils % 1.1 % (0.0-0.8); Eosinophils # 0.3 10*3/uL (0.0-0.87); Eosinophils % 5.3 % (0.00-10.9); Hematocrit 26.6 VOL% (42.0-52.0); Hemoglobin 8.3 GM/DL (14.0-18.0); Immature Granulocytes % 0.3 %; Immature Granulocytes Absolute 0.02 #; Lymphocytes # 0.7 10*3/uL (1.4-4.0); Lymphocytes % 11.8 % (21.2-54.2); Mean Corpuscular HGB Conc 31.2 GM/DL (32-36); Mean Corpuscular Volume 88.1 FL (87-102); Mean Platelet Volume 8.7 FL (9.6-12.0); Monocytes % 9.4 % (1.7-12.7); Neutrophils % 72.1 % (38.7-73.9); Platelet Count 299 T/CUMM (130-400); Red Blood Count 3.02 MC/CUMM (3.8-5.5); Red Cell Distribution Width 16.7 % (9.3-17.3); White Blood Count 6.1 T/CUMM (4-12)
[2020-12-19 08:15] LABS: Calcium 8.4 MG/DL (8.5-10.1); Osmolality,Calculated 277.4 MOS/KG (273-304); Potassium 4.1 MMOL/L (3.5-5.1)
[2020-12-19] MEDS: CHOLECALCIFEROL 1,000 UNIT TABLET PO SCH (08:17)
[2020-12-19] MEDS: TAMSULOSIN 0.4 MG CAPSULE PO SCH (08:17)
[2020-12-19] MEDS: NYSTATIN 500,000 UNIT/5 ML UDCUP SWISH/SWAL SCH (08:17)
[2020-12-19] MEDS: ASPIRIN CHEW 81 MG TABLET PO SCH (08:17)
[2020-12-19] MEDS: CALCIUM (CARBONATE) 500 MG TABLET PO SCH (08:17)
[2020-12-19] MEDS: allopurinoL 100 MG TABLET PO SCH (08:18)
[2020-12-19] MEDS: ASCORBIC ACID 500 MG TABLET PO SCH (08:18)
[2020-12-19] MEDS: MULTIVITAMIN (CENTRUM) TABLET PO SCH (08:18)
[2020-12-19] MEDS: ACYCLOVIR 200 MG CAPSULE PO SCH (08:18)
[2020-12-19] MEDS: FERROUS SULFATE 325 MG TABLET PO SCH (08:18)
[2020-12-19] MEDS: PANTOPRAZOLE 40 MG TABLET PO SCH (08:18)
[2020-12-19] MEDS: INSULIN LISPRO 100 UNIT/ML SUBCUT SCH (08:19)
[2020-12-19] MEDS: NON-FORMULARY MEDICATION (Magnesium 250 mg Tablet) PO SCH (08:39)
[2020-12-19] MEDS ORDERED: AMIODARONE 200 MG TABLET PO SCH (09:00)
[2020-12-19] MEDS ORDERED: METOPROLOL TARTRATE 25 MG TABLET PO SCH (09:00)
[2020-12-19 11:31] VITALS: BP 124/67
== END 2020-12-19 12:00 | disposition home or self-care (01) ==
LOC: N.ED 10:56 → SUATTDRO 15:25 → INTOOBSV 15:25 → N.EDINP 15:25 → N.TELEN 18:34
PROVIDERS: ADMIT Internal Medicine; ATTEND Internal Medicine